=== PATIENT | female | born 1970 | race Caucasian/White ===

== ENCOUNTER 2016-12-30 04:58 | Emergency (ER) | payer BC, OTHER ==
[~2016-12-30] VITALS: Ht 160 cm; Wt 108.0 kg
[~2016-12-30 04:58] MED LIST: CITA10TA8 PO; LEVOIUD INT UTER
[2016-12-30 05:01] VITALS: TEMP 37; Ht 160 cm; Wt 108.0 kg
[2016-12-30] MEDS ORDERED: ONDANSETRON INJ 2 MG/ML 2 ML VIAL IV STA (05:15)
[2016-12-30] MEDS ORDERED: SODIUM CHLORIDE 0.9% 1000ML 1,000 ML IV ONE (05:15)
[2016-12-30] MEDS ORDERED: MoRPHine SULFATE 4 MG/ML 1 ML CARP\\VIAL IV ONE (05:15)
[2016-12-30 05:27] LABS: BASO % 0.1 %; BASO ABS # 0.02 K/uL (0-0.2); COMPLETE YES; EOS % 1.8 %; HEMATOCRIT 43.3 % (37-47); IG% 0.2 %; LYMPH % 35.6 %; LYMPH ABS # 4.84 K/uL (1.2-3.4); MEAN CELL VOLUME 89.8 fL (80-100); MEAN CORPUSCULAR HEMOGLOBIN 29.7 pg (25-34); MEAN PLATELET VOLUME 10.2 fL (7.4-10.4); MONO % 8.2 %; NEUT % 54.1 %; PLATELET COUNT 302 K/uL (130-400); RED BLOOD COUNT 4.82 M/uL (4.2-5.4)
[2016-12-30 05:43] LABS: BUN/CREATININE RATIO 21.1 (10-20); CREATININE 0.65 mg/dl (0.60-1.20); POTASSIUM 4.3 mmol/L (3.5-5.1)
[2016-12-30] MEDS ORDERED: METRONIDAZOLE 250 MG TAB PO STA (07:20)
[2016-12-30] MEDS ORDERED: CIPROFLOXACIN 500 MG TAB PO STA (07:20)
[2016-12-30] MEDS ORDERED: HYDR-5688 PO (07:25)
[2016-12-30] MEDS ORDERED: CIPR-255 PO (07:25)
[2016-12-30] MEDS ORDERED: METR-163 PO (07:25)
[2016-12-30] MEDS ORDERED: ONDA4TAB10 SL (07:25)
[2016-12-30 07:28] LABS: URINE APPEARANCE CLEAR (CLEAR); URINE BILIRUBIN NEG (NEG); URINE COLOR YELLOW; URINE EPITHELIAL CELL AUTO >30 /lpf (0-5); URINE NITRITE NEG (NEG); URINE SPECIFIC GRAVITY 1.024 (1.000-1.030); UROBILINOGEN NEG (NEG); ZZUR CULT IF INDIC CLEAN CATCH NO
[2016-12-30 07:29] LABS: REVIEW REQ? YES
[2016-12-30 07:30] LABS: MANUAL MICROSCOPIC REQUIRED? NO
--- NOTE | 2016-12-30 07:32 | DIAGNOSTIC IMAGING REPORT ---
ULTRASOUND OF THE PELVIS CLINICAL HISTORY: Left pelvic pain. COMPARISON STUDY: Abdominal CT dated 12/30/2016. TECHNIQUE: Real-time, grayscale, and color flow sonography of the pelvis is performed both transabdominally and endovaginally. Images are reviewed in the transverse and longitudinal planes. FINDINGS: Uterus: The uterus is normal in size and echotexture, measuring 9.7 x 5.1 x 7.6 cm. Endometrium: The endometrium appears thickened, measuring up to 1.4 cm. No abnormal vascularity is seen on color imaging. Ovaries: The ovaries are normal in size and morphology. The right ovary measures 3.2 x 1.9 x 2.5 cm and the left ovary measures 2.3 x 1.3 x 1.8 cm. There are bilateral ovarian follicles. Dominant follicle in the right measures up to 1.8 cm. A coarse calcification is seen adjacent to the left ovary. Normal Doppler waveforms are shown within both ovaries. Pelvis: There is a small volume of free fluid in the cul-de-sac. No concerning adnexal lesion is seen. IMPRESSION: 1. No acute sonographic abnormality is identified in the pelvis. 2. There is a small volume of free fluid in the cul-de-sac, likely within physiologic limits. 3. The endometrium appears mildly thickened measuring up to 1.4 cm. This is nonspecific and may be related to the patient's cycle. Clinical correlation will be required. Electronically signed by: Jose Lunsford M.D. 12/30/2016 7:30 AM Dictated Date/Time: 12/30/2016 7:28 AM
[2016-12-30 07:39] VITALS: BP 130/70; PULSE 65; O2SAT 95
--- NOTE | 2016-12-30 07:41 | DIAGNOSTIC IMAGING REPORT ---
CT SCAN OF THE ABDOMEN AND PELVIS WITHOUT IV CONTRAST CLINICAL HISTORY: Left pelvic pain. COMPARISON STUDY: Abdominal CT dated 06/27/2015. TECHNIQUE: CT scan of the abdomen and pelvis is performed from the lung bases to the proximal femora. Images are reviewed in the axial, sagittal, and coronal planes. IV contrast was not administered for this examination as per the referring clinician. Note that the examination was performed in suboptimal fashion without oral and IV contrast. The examination is also degraded by large body habitus, and by streak artifact from the body wall abutting the CT gantry. Automated dose control exposure was utilized. CT DOSE: 1965.68 mGy.cm FINDINGS: Lung bases: The heart is normal in size and without pericardial effusion. There is a trace left pleural effusion. The lung bases are otherwise clear noting dependent atelectasis. A tiny hiatal hernia is identified. Liver: The unenhanced liver is enlarged, measuring 22 cm in length. The liver demonstrates diffusely diminished attenuation consistent with hepatic steatosis. Fatty sparing is seen adjacent to the gallbladder fossa. There are several large hepatic cysts. The largest is in the right lobe and measures up to 8 cm. There is no intrahepatic biliary ductal dilatation. A tiny lipoma is suggested in the dome of liver adjacent to a coarse calcification on image #24. Gallbladder: There are numerous gallstones. There is no CT evidence of acute cholecystitis. Spleen: Normal in size and attenuation. Pancreas: Unremarkable. Adrenal glands: Unremarkable. Kidneys: The unenhanced kidneys are normal in size and without hydronephrosis. There are least 2 nonobstructing right renal calculi measuring up to 4 mm. There is a cluster of nonobstructing calculi in the lower pole of left kidney measuring up to 6 mm. There is no evidence of contour deforming renal mass lesion. Abdominal vasculature: The abdominal aorta is normal in course and caliber. Bowel: The small bowel and colon are normal in course and caliber. There is mild diverticulosis of left colon. There is a fat-containing lesion along the antimesenteric border of the distal descending/proximal sigmoid colon with surrounding inflammation. Although there are diverticula in this region, the appearance is more suggestive of epiploic appendagitis. No organized fluid collection is seen. The appendix is well-visualized and normal. Peritoneum: There is no intraperitoneal free air or abdominal ascites. Lymphadenopathy: None. Pelvic viscera: The bladder, uterus, and adnexa are normal as visualized. There is a small volume of free fluid in the cul-de-sac. Skeletal structures: No lytic or blastic lesions are seen. IMPRESSION: 1. Suboptimal examination without oral and IV contrast. 2. There is a fat-containing lesion along the antimesenteric border of the distal descending/proximal sigmoid colon with surrounding inflammation. Although there are colonic diverticula in this region, the appearance is more suggestive of epiploic appendagitis. Mild acute diverticulitis could have a similar appearance and clinical correlation will be required. 3. Bilateral nonobstructing renal calculi. 4. Hepatomegaly and hepatic steatosis. 5. There is a small volume of free fluid in the cul-de-sac, likely within physiologic limits. 6. Cholelithiasis. 7. Additional findings as above. Electronically signed by: Jose Lunsford M.D. 12/30/2016 7:40 AM Dictated Date/Time: 12/30/2016 7:31 AM
--- NOTE | 2016-12-30 23:20 | EMERGENCY ROOM VISIT NOTE ---
History First contact with patient: 05:08 Chief Complaint: ABDOMINAL PAIN Stated Complaint: PAIN LWR LEFT SIDE Nursing Triage Summary: c/o left lower abd pain since 1300 yesterday. denies N/V/d or urinary symptoms. hx kidney stones History of Present Illness The patient is a 46 year old female who presents to the Emergency Room with complaints of left lower quadrant abdominal pain worsening over the past one day. The patient does not have injury or trauma to this area. She is without nausea, vomiting, or diarrhea. No dysuria. She does have a history of kidney stones, however she states her discomfort is different from those episodes. She has been able to eat and drink without difficulty. No reported fever. She has not taken anything [id number] for her discomfort. Palpation in the area does worsen the pain. The pain does not radiate and is not migratory. She rates it an 8/10. Review of Systems More than 10 systems were reviewed and otherwise negative with the exception of history of present illness. Past Medical/Surgical History Medical Problems: (1) Kidney stone Family History No pertinent family history Social History Smoking Status: Never Smoker Alcohol Use: occasionally Drug Use: none Marital Status: Housing Status: lives with family Current/Historical Medications Scheduled Ciprofloxacin Hcl (Cipro), 500 MG PO BID Citalopram Hydrobromide (Celexa), 10 MG PO QAM Metronidazole (Flagyl), 500 MG PO TID Ondasetron Odt (Zofran Odt), 4 MG SL Q6H Scheduled PRN Hydrocodone/Acetaminophen 5MG/325MG (Pearblossom 5MG/325MG), 1 TABLET PO Q6 PRN for Pain Miscellaneous Medications Levonorgestrel (Iud) (Mirena), 1 UNIT INT UTER Allergies Coded Allergies: No Known Allergies (Verified , 12/30/16) Physical Exam Vital Signs Date Time Temp Pulse Resp B/P Pulse Ox O2 Delivery O2 Flow Rate FiO2 12/30/16 07:39 65 18 130/70 95 12/30/16 06:43 63 20 119/71 93 Room Air 12/30/16 05:01 37.0 75 18 138/81 92 Room Air Pain Rating (0-10): 4.0 Physical Exam VITALS: Vitals are noted on the nurse's note and reviewed by myself. Vital signs stable. GENERAL: Well-developed, well-nourished, white female, who is in no acute distress and resting comfortably. Patient is cooperative with the examination. HEAD: Normocephalic atraumatic. HEART: Regular rate and rhythm without murmurs gallops or rubs. LUNGS: Clear to auscultation bilaterally without wheezes, rales or rhonchi. No retractions or accessory muscle use. ABDOMEN: Positive normal bowel sounds x 4. Soft with positive left lower quadrant tenderness on palpation. No rebound or guarding. No right lower quadrant tenderness. No CVA tenderness. MUSCULOSKELETAL: No muscle atrophy, erythema, or edema noted. Full range of motion without joint tenderness in all extremities. Medical Decision & Procedures ER Provider Diagnostic Interpretation: ULTRASOUND OF THE PELVIS CLINICAL HISTORY: Left pelvic pain. COMPARISON STUDY: Abdominal CT dated 12/30/2016. TECHNIQUE: Real-time, grayscale, and color flow sonography of the pelvis is performed both transabdominally and endovaginally. Images are reviewed in the transverse and longitudinal planes. FINDINGS: Uterus: The uterus is normal in size and echotexture, measuring 9.7 x 5.1 x 7.6 cm. Endometrium: The endometrium appears thickened, measuring up to 1.4 cm. No abnormal vascularity is seen on color imaging. Ovaries: The ovaries are normal in size and morphology. The right ovary measures 3.2 x 1.9 x 2.5 cm and the left ovary measures 2.3 x 1.3 x 1.8 cm. There are bilateral ovarian follicles. Dominant follicle in the right measures up to 1.8 cm. A coarse calcification is seen adjacent to the left ovary. Normal Doppler waveforms are shown within both ovaries. Pelvis: There is a small volume of free fluid in the cul-de-sac. No concerning adnexal lesion is seen. IMPRESSION: 1. No acute sonographic abnormality is identified in the pelvis. 2. There is a small volume of free fluid in the cul-de-sac, likely within physiologic limits. 3. The endometrium appears mildly thickened measuring up to 1.4 cm. This is nonspecific and may be related to the patient's cycle. Clinical correlation will be required. CT SCAN OF THE ABDOMEN AND PELVIS WITHOUT IV CONTRAST CLINICAL HISTORY: Left pelvic pain. COMPARISON STUDY: Abdominal CT dated 06/27/2015. TECHNIQUE: CT scan of the abdomen and pelvis is performed from the lung bases to the proximal femora. Images are reviewed in the axial, sagittal, and coronal planes. IV contrast was not administered for this examination as per the referring clinician. Note that the examination was performed in suboptimal fashion without oral and IV contrast. The examination is also degraded by large body habitus, and by streak artifact from the body wall abutting the CT gantry. Automated dose control exposure was utilized. CT DOSE: 1965.68 mGy.cm FINDINGS: Lung bases: The heart is normal in size and without pericardial effusion. There is a trace left pleural effusion. The lung bases are otherwise clear noting dependent atelectasis. A tiny hiatal hernia is identified. Liver: The unenhanced liver is enlarged, measuring 22 cm in length. The liver demonstrates diffusely diminished attenuation consistent with hepatic steatosis. Fatty sparing is seen adjacent to the gallbladder fossa. There are several large hepatic cysts. The largest is in the right lobe and measures up to 8 cm. There is no intrahepatic biliary ductal dilatation. A tiny lipoma is suggested in the dome of liver adjacent to a coarse calcification on image #24. Gallbladder: There are numerous gallstones. There is no CT evidence of acute cholecystitis. Spleen: Normal in size and attenuation. Pancreas: Unremarkable. Adrenal glands: Unremarkable. Kidneys: The unenhanced kidneys are normal in size and without hydronephrosis. There are least 2 nonobstructing right renal calculi measuring up to 4 mm. There is a cluster of nonobstructing calculi in the lower pole of left kidney measuring up to 6 mm. There is no evidence of contour deforming renal mass lesion. Abdominal vasculature: The abdominal aorta is normal in course and caliber. Bowel: The small bowel and colon are normal in course and caliber. There is mild diverticulosis of left colon. There is a fat-containing lesion along the antimesenteric border of the distal descending/proximal sigmoid colon with surrounding inflammation. Although there are diverticula in this region, the appearance is more suggestive of epiploic appendagitis. No organized fluid collection is seen. The appendix is well-visualized and normal. Peritoneum: There is no intraperitoneal free air or abdominal ascites. Lymphadenopathy: None. Pelvic viscera: The bladder, uterus, and adnexa are normal as visualized. There is a small volume of free fluid in the cul-de-sac. Skeletal structures: No lytic or blastic lesions are seen. IMPRESSION: 1. Suboptimal examination without oral and IV contrast. 2. There is a fat-containing lesion along the antimesenteric border of the distal descending/proximal sigmoid colon with surrounding inflammation. Although there are colonic diverticula in this region, the appearance is more suggestive of epiploic appendagitis. Mild acute diverticulitis could have a similar appearance and clinical correlation will be required. 3. Bilateral nonobstructing renal calculi. 4. Hepatomegaly and hepatic steatosis. 5. There is a small volume of free fluid in the cul-de-sac, likely within physiologic limits. 6. Cholelithiasis. 7. Additional findings as above. ULTRASOUND OF THE PELVIS CLINICAL HISTORY: Left pelvic pain. COMPARISON STUDY: Abdominal CT dated 12/30/2016. TECHNIQUE: Real-time, grayscale, and color flow sonography of the pelvis is performed both transabdominally and endovaginally. Images are reviewed in the transverse and longitudinal planes. FINDINGS: Uterus: The uterus is normal in size and echotexture, measuring 9.7 x 5.1 x 7.6 cm. Endometrium: The endometrium appears thickened, measuring up to 1.4 cm. No abnormal vascularity is seen on color imaging. Ovaries: The ovaries are normal in size and morphology. The right ovary measures 3.2 x 1.9 x 2.5 cm and the left ovary measures 2.3 x 1.3 x 1.8 cm. There are bilateral ovarian follicles. Dominant follicle in the right measures up to 1.8 cm. A coarse calcification is seen adjacent to the left ovary. Normal Doppler waveforms are shown within both ovaries. Pelvis: There is a small volume of free fluid in the cul-de-sac. No concerning adnexal lesion is seen. IMPRESSION: 1. No acute sonographic abnormality is identified in the pelvis. 2. There is a small volume of free fluid in the cul-de-sac, likely within physiologic limits. 3. The endometrium appears mildly thickened measuring up to 1.4 cm. This is nonspecific and may be related to the patient's cycle. Clinical correlation will be required. Laboratory Results 12/30/16 05:16 Red Blood Count 4.82, Mean Corpuscular Volume 89.8, Mean Corpuscular Hemoglobin 29.7, Mean Corpuscular Hemoglobin Concent 33.0, Mean Platelet Volume 10.2, Neutrophils (%) (Auto) 54.1, Lymphocytes (%) (Auto) 35.6, Monocytes (%) (Auto) 8.2, Eosinophils (%) (Auto) 1.8, Basophils (%) (Auto) 0.1, Neutrophils # (Auto) 7.35, Lymphocytes # (Auto) 4.84, Monocytes # (Auto) 1.12, Eosinophils # (Auto) 0.24, Basophils # (Auto) 0.02 12/30/16 05:16 Test 12/30/16 05:16 12/30/16 06:30 White Blood Count 13.60 K/uL (4.8-10.8) Red Blood Count 4.82 M/uL (4.2-5.4) Hemoglobin 14.3 g/dL (12.0-16.0) Hematocrit 43.3 % (37-47) Mean Corpuscular Volume 89.8 fL (80-100) Mean Corpuscular Hemoglobin 29.7 pg (25-34) Mean Corpuscular Hemoglobin Concent 33.0 g/dl (32-36) Platelet Count 302 K/uL (130-400) Mean Platelet Volume 10.2 fL (7.4-10.4) Neutrophils (%) (Auto) 54.1 % Lymphocytes (%) (Auto) 35.6 % Monocytes (%) (Auto) 8.2 % Eosinophils (%) (Auto) 1.8 % Basophils (%) (Auto) 0.1 % Neutrophils # (Auto) 7.35 K/uL (1.4-6.5) Lymphocytes # (Auto) 4.84 K/uL (1.2-3.4) Monocytes # (Auto) 1.12 K/uL (0.11-0.59) Eosinophils # (Auto) 0.24 K/uL (0-0.5) Basophils # (Auto) 0.02 K/uL (0-0.2) RDW Standard Deviation 41.4 fL (36.4-46.3) RDW Coefficient of Variation 12.7 % (11.5-14.5) Immature Granulocyte % (Auto) 0.2 % Immature Granulocyte # (Auto) 0.03 K/uL (0.00-0.02) Anion Gap 4.0 mmol/L (3-11) Est Creatinine Clear Calc Drug Dose 124.7 ml/min Estimated GFR () 121.7 Estimated GFR (Non- 105.0 BUN/Creatinine Ratio 21.1 (10-20) Calcium Level 9.0 mg/dl (8.5-10.1) Total Bilirubin 0.3 mg/dl (0.2-1) Aspartate Amino Transf (AST/SGOT) 13 U/L (15-37) Alanine Aminotransferase (ALT/SGPT) 21 U/L (12-78) Alkaline Phosphatase 68 U/L (45-117) Total Protein 7.1 gm/dl (6.4-8.2) Albumin 3.5 gm/dl (3.4-5.0) Globulin 3.6 gm/dl (2.5-4.0) Albumin/Globulin Ratio 1.0 (0.9-2) Lipase 130 U/L (73-393) Urine Color YELLOW Urine Appearance CLEAR (CLEAR) Urine pH 5.0 (4.5-7.5) Urine Specific Badger 1.024 (1.000-1.030) Urine Protein NEG (NEG) Urine Glucose (UA) NEG (NEG) Urine Ketones NEG (NEG) Urine Occult Blood TRACE (NEG) Urine Nitrite NEG (NEG) Urine Bilirubin NEG (NEG) Urine Urobilinogen NEG (NEG) Urine Leukocyte Esterase NEG (NEG) Urine WBC (Auto) 1-5 /hpf (0-5) Urine RBC (Auto) 0-4 /hpf (0-4) Urine Hyaline Casts (Auto) 1-5 /lpf (0-5) Urine Epithelial Cells (Auto) >30 /lpf (0-5) Urine Bacteria (Auto) NEG (NEG) Urine Test NEG (NEG) Medications Administered Medications (Trade) Dose Ordered Sig/Ousmane Route Start Time Stop Time Status Last Admin Dose Admin Sodium Chloride (Nss 1000ml) 1,000 ml @ 999 mls/hr Q1H1M ONCE IV 12/30/16 05:15 12/30/16 06:15 DC 12/30/16 05:21 999 MLS/HR Morphine Sulfate (MoRPHine SULFATE INJ) 4 mg NOW ONCE IV 12/30/16 05:15 12/30/16 05:17 DC 12/30/16 05:22 4 MG Ondansetron HCl (Zofran Inj) 4 mg NOW STAT IV 12/30/16 05:15 12/30/16 05:17 DC 12/30/16 05:21 4 MG Ciprofloxacin (Cipro Tab) 500 mg NOW STAT PO 12/30/16 07:20 12/30/16 07:21 DC 12/30/16 07:28 500 MG Metronidazole (Flagyl Tab) 500 mg NOW STAT PO 12/30/16 07:20 12/30/16 07:21 DC 12/30/16 07:28 500 MG ED Course Physical exam and history were performed. Nursing notes and EMR were reviewed. Patient appears to have left lower quadrant abdominal pain for the past one day. On exam she is tender in this area. IV access was established and labs were obtained. The patient was hydrated and medicated as above. Ultrasound and CT scans were ordered. The patient's blood work is as above and was reviewed. The patient does have an elevated white blood cell count greater than 13,000. She does not have a significant anemia or gross electrolyte imbalance. Urinalysis without obvious signs of infection with culture pending. Ultrasound did not show acute [employer] etiology of the patient's symptoms. CT scan without contrast did not show evidence of stone but was suggestive of diverticulitis. Clinically this would correlate with patient's discomfort. Overall the patient appears stable for discharge home. She was treated with Cipro and Flagyl here in the department. She'll be given a continuation prescriptions of these medications. I will also give her a course of Zofran. I recommended that she follow with her PCP in the next 2 or 3 days for recheck. The patient was provided the ER with any new, worsening, or concerning symptoms. She voiced understanding of this plan and rated her discomfort a 2/ 10 at the time of her departure. The chart was completed utilizing [employer] Speech Voice Recognition Software. Grammatical errors, random word insertions, pronoun errors, and incomplete sentences are an occasional consequence of this system due to software limitations, ambient noise, and hardware issues. Any formal questions or concerns about the content, text, or information contained within the body of this dictation should be directly addressed to the provider for clarification. . Medical Decision Differential diagnosis: Etiologies such as appendicitis, diverticulitis, PUD, biliary pathology, UTI, pancreatitis, obstruction, mesenteric ischemia, aortic pathology, infections, inflammatory bowel disease, renal colic, as well as others were entertained. Impression Primary Impression: Acute diverticulitis Departure Information Dispostion Home / Self-Care Condition GOOD Prescriptions Ondasetron Odt (ZOFRAN ODT) 4 Mg Tab 4 MG SL Q6H for Nausea, #12 TAB Prov: Sy Garcia PA-C 12/30/16 Hydrocodone/Acetaminophen 5MG/325MG (Pearblossom 5MG/325MG) Tab 1 TABLET PO Q6 Y for Pain, #12 TAB For Initial Treatment Prov: Sy Garcia PA-C 12/30/16 Metronidazole (Flagyl) 500 Mg Tab 500 MG PO TID for 10 Days, #30 TAB Prov: Sy Garcia PA-C 12/30/16 Ciprofloxacin Hcl (CIPRO) 500 Mg Tab 500 MG PO BID for 10 Days, #20 TAB Prov: Sy Garcia PA-C 12/30/16 Forms Call Back Authorization, HOME CARE DOCUMENTATION FORM, Work Instructions, Additional Instructions: Patient was seen and evaluated in the emergency department for medica care. May return to work on 01/01/2017. Please excuse. IMPORTANT VISIT INFORMATION Patient Instructions [facility] Additional Instructions You were seen and evaluated today on an emergency basis only. This is not a substitute for, or an effort to provide, complete comprehensive medical care. It is not possible to recognize and treat all injuries or illnesses in a single emergency department visit. For this reason it is recommended that you followup with your primary care physician this week for ongoing care and evaluation. For baseline pain relief you may alternate ibuprofen and acetaminophen every 4 hours for pain control. Take 600 mg ibuprofen (Advil) and then 4 hours later take 1000 mg acetaminophen (Tylenol). Do not take more than 3000 mg acetaminophen in a single day. Pearblossom (hydrocodone/acetaminophen) 5/325 mg every 6 hours as needed for worsening breakthrough pain. Do not drink or drive on Pearblossom. This medication will likely make you tired. Do not take Pearblossom and Tylenol at the same time as both contain acetaminophen. Pearblossom may cause constipation. You may wish to take an tsoo-nov-uhrltye stool softener like Colace if this occurs. Ciprofloxacin(Cipro) 500mg: Take one pill twice daily for 10 days for your infection. All antibiotics can cause diarrhea. If this occurs and you feel worse or it does not resolve in 1-2 days follow up with your doctor or return to the Emergency Department as this could be signs of serious underlying problems. If you experience any pain in your tendons or any tendon injury return to the ER for re-evaluation. Any medication can cause an allergic reaction, stop the pills immediately and return to the ER for rash, hives, breathing difficulties, or swelling. Metronidazole(Flagyl) 500mg: Take one pill three times daily for 10 days for your infection. DO NOT drink alcohol or take alcohol containing products with this medication. Any medication can cause an allergic reaction, stop the pills immediately and return to the ER for rash, hives, breathing difficulties, or swelling. Zofran 1 tablet every 6 hrs as needed for nausea. You are welcome to return to the emergency department anytime with new, worsening, or concerning symptoms. Work Instructions Additional Work Instructions: Patient was seen and evaluated in the emergency department for medical care. May return to work on 01/01/2017. Please excuse.
[2017-05-12] MEDS ORDERED: OXYC1TAB3 PO (13:33)
[2017-05-12] MEDS ORDERED: TAMS0.4C38 PO (13:33)
[2017-05-12] MEDS ORDERED: ACET-1256 PO (13:34)
== END 2016-12-30 07:40 | disposition home or self-care (01) ==
LOC: C.EDB 04:58
DX: K57.92 Diverticulitis of intestine, part unspecified, without perforation or abscess without bleeding (principal)

== ENCOUNTER 2017-05-02 12:03 | Emergency (ER) | payer BC ==
[~2017-05-02] VITALS: Ht 160 cm; Wt 120.4 kg
[~2017-05-02 12:03] MED LIST changes: +CIPR-255 PO; +HYDR-5688 PO; +ONDA4TAB10 SL
[2017-05-02 12:10] VITALS: TEMP 36.8; Ht 160 cm; Wt 120.4 kg
[2017-05-02] MEDS ORDERED: ONDANSETRON INJ 2 MG/ML 2 ML VIAL IV STA (12:22)
[2017-05-02] MEDS ORDERED: SODIUM CHLORIDE 0.9% 1000ML 1,000 ML IV STA ×2 (12:22→12:55)
[2017-05-02] MEDS ORDERED: MoRPHine SULFATE 10 MG/ML CARP/VIAL IV STA (12:22)
[2017-05-02 12:46] LABS: BASO % 0.2 %; BASO ABS # 0.03 K/uL (0-0.2); COMPLETE YES; EOS % 0.5 %; HEMATOCRIT 45.5 % (37-47); IG% 0.3 %; LYMPH % 16.7 %; LYMPH ABS # 2.47 K/uL (1.2-3.4); MEAN CELL VOLUME 91.9 fL (80-100); MEAN CORPUSCULAR HEMOGLOBIN 30.7 pg (25-34); MEAN CORPUSCULAR HGB CONC 33.4 g/dl (32-36); MEAN PLATELET VOLUME 10.4 fL (7.4-10.4); NEUT % 77.3 %; PLATELET COUNT 300 K/uL (130-400); RED BLOOD COUNT 4.95 M/uL (4.2-5.4); WHITE BLOOD COUNT 14.78 K/uL (4.8-10.8)
[2017-05-02 13:05] LABS: ALT/SGPT 34 U/L (12-78); AST/SGOT 23 U/L (15-37); BLOOD UREA NITROGEN 11 mg/dl (7-18); BUN/CREATININE RATIO 15.8 (10-20); CALCIUM 9.1 mg/dl (8.5-10.1); CARBON DIOXIDE 25 mmol/L (21-32); CHLORIDE 108 mmol/L (98-107); CREATININE 0.71 mg/dl (0.60-1.20); GLUCOSE 134 mg/dl (70-99); POTASSIUM 4.2 mmol/L (3.5-5.1); SODIUM 141 mmol/L (136-145)
[2017-05-02 13:08] LABS: URINE APPEARANCE CLOUDY (CLEAR); URINE BILIRUBIN NEG (NEG); URINE COLOR DK YELLOW; URINE EPITHELIAL CELL AUTO >30 /lpf (0-5); URINE NITRITE NEG (NEG); URINE SPECIFIC GRAVITY 1.027 (1.000-1.030); UROBILINOGEN NEG (NEG); ZZUR CULT IF INDIC CLEAN CATCH YES
[2017-05-02 13:08] LABS: ALKALINE PHOSPHATASE 73 U/L (45-117)
[2017-05-02 13:11] LABS: MANUAL MICROSCOPIC REQUIRED? NO; REVIEW REQ? NO
--- NOTE | 2017-05-02 13:28 | DIAGNOSTIC IMAGING REPORT ---
CT SCAN OF THE ABDOMEN AND PELVIS WITHOUT CONTRAST CLINICAL HISTORY: Left flank pain and hematuria COMPARISON STUDY: 12/28/2016 TECHNIQUE: CT scan of the abdomen and pelvis was performed from the lung bases to the proximal femurs. Images are reviewed in the axial, sagittal, and coronal planes. IV contrast was not administered for this examination. A dose lowering technique was utilized adhering to the principles of ALARA. CT DOSE: 1439.95 mGy.cm FINDINGS: Lower chest: There are by basilar atelectatic changes present. Liver: There is a stable right lobe hepatic calcification. There are multiple hypodense hepatic lesions similar to the prior study. Multiple cysts are suspected. Gallbladder: Cholelithiasis Spleen: Normal in size and attenuation. Pancreas: Unremarkable. Adrenal glands: Unremarkable. Kidneys: There is a nonobstructing 4 mm right renal calculus. There are multiple lower pole left renal calculi measuring up to 2 mm in size. There is a 6 mm calculus at the left ureteropelvic junction with mild secondary obstructive changes. Bowel: There are no transition zones indicate bowel obstruction. The appendix appears normal. There is colonic diverticulosis. There is no acute diverticulitis. Peritoneum: There is no intraperitoneal free air or abdominal ascites. Vasculature: The abdominal aorta is normal in course and caliber. Adenopathy: None. Pelvic viscera: The bladder, and pelvic viscera are unremarkable. Skeletal structures: No destructive osseous lesions are seen. IMPRESSION: 1. Bilateral nephrolithiasis 2. 6 mm proximal left ureteral calculus at the ureteropelvic junction with mild secondary obstructive changes 3. No evidence of bowel obstruction. No evidence of free air 4. Diverticulosis. No evidence of acute diverticulitis 5. Normal appendix 6. Cholelithiasis 7. Multiple hypodense hepatic masses likely representing cysts Electronically signed by: Braden Plascencia M.D. 05/02/2017 1:27 PM Dictated Date/Time: 05/02/2017 1:22 PM
[2017-05-02 14:43] LABS: URINE APPEARANCE CLEAR (CLEAR); URINE BILIRUBIN NEG (NEG); URINE COLOR YELLOW; URINE EPITHELIAL CELL AUTO >30 /lpf (0-5); URINE NITRITE NEG (NEG); URINE SPECIFIC GRAVITY 1.024 (1.000-1.030); UROBILINOGEN NEG (NEG)
[2017-05-02 14:49] LABS: MANUAL MICROSCOPIC REQUIRED? NO; REVIEW REQ? NO
[2017-05-02] MEDS ORDERED: MoRPHine SULFATE 4 MG/ML 1 ML CARP\\VIAL IV STA (15:10)
[2017-05-02] MEDS ORDERED: TAMS0.4C38 PO (15:15)
[2017-05-02] MEDS ORDERED: OXYC1TAB3 PO (15:15)
[2017-05-02 16:02] VITALS: BP 127/71; PULSE 67; O2SAT 93
--- NOTE | 2017-05-02 18:17 | EMERGENCY ROOM VISIT NOTE ---
History Report prepared by Christiano: Gordy Grimm Under the Supervision of: Dr. Cullen Rice D.O. First contact with patient: 12:11 Chief Complaint: ABDOMINAL PAIN Stated Complaint: ABD/BACK PAIN History of Present Illness The patient is a 47 year old female who presents to the Emergency Room with complaints of constant left sided abdominal pain beginning shortly prior to arrival. She also complains of bilateral back pain, an episode of diarrhea, nausea, and dry heaving. She has a history of diverticulitis and kidney stones. She notes the pain is sharp in nature. The patient states that her pain began immediately after urinating. Nothing worsens her pain. Nothing improves her pain. The patient states that her pain in her back and abdomen began suddenly at the same time. She states that her current pain feels like early kidney stones. She denies any recent straining or trauma. Pt denies change in vision, fevers, chest pain, shortness of breath, rashes, urination, and melena. She notes that she was recently kayaking at [facility] last weekend. She notes that she has had headaches for the past several days and was seen by a chiropractor recently, but currently denies any headache. Source of History: patient Onset: Shortly prior to arrival Position: abdomen (left side) Timing: constant Associated Symptoms: + nausea, + back pain (bilateral), + diarrhea (an episode), No fevers, No headache, No chest pain, No SOB, No urinary symptoms Note: The patient also complains of dry heaving. Review of Systems See HPI for pertinent positives & negatives. A total of 10 systems reviewed and were otherwise negative. Past Medical & Surgical Medical Problems: (1) Kidney stone Family History No pertinent family history stated. Social History Smoking Status: Never Smoker Alcohol Use: occasionally Drug Use: none Marital Status: Housing Status: lives with family Current/Historical Medications Scheduled Citalopram Hydrobromide (Celexa), 10 MG PO QAM Tamsulosin Hcl (Flomax), 0.4 MG PO DAILY Scheduled PRN Hydrocodone/Acetaminophen 5MG/325MG (Bartley 5MG/325MG), 1 TABLET PO Q6 PRN for Pain Oxycodone Ir (Roxicodone Ir), 1 TAB PO Q6H PRN for Severe Pain Allergies Coded Allergies: No Known Allergies (Verified , 05/02/17) Physical Exam Vital Signs Date Time Temp Pulse Resp B/P (MAP) Pulse Ox O2 Delivery O2 Flow Rate FiO2 05/02/17 16:02 67 18 127/71 93 05/02/17 14:00 60 18 111/66 99 Room Air 05/02/17 12:10 36.8 74 18 127/74 94 Room Air Physical Exam GENERAL: Morbidly obese, sitting up in bed, holding lower abdomen. EYE EXAM: normal conjunctiva OROPHARYNX: no exudate, no erythema, lips, buccal mucosa, and tongue normal and mucous membranes are moist NECK: supple, no nuchal rigidity, no adenopathy, non-tender LUNGS: Clear to auscultation. Normal chest wall mechanics HEART: no murmurs, S1 normal and S2 normal ABDOMEN: abdomen soft, normo-active bowel sounds, no masses, no rebound or guarding. Faint tenderness in the LLQ. BACK: Back is symmetrical on inspection and there is no deformity, no midline tenderness, no CVA tenderness. SKIN: no rashes and no bruising UPPER EXTREMITIES: upper extremities are grossly normal. LOWER EXTREMITIES: No pitting edema. NEURO EXAM: Normal sensorium, cranial nerves II-XII grossly intact, normal speech, no gross weakness of arms, no gross weakness of legs. Medical Decision & Procedures ER Provider Diagnostic Interpretation: CT:Per my review, radiologist interpretation. CT SCAN OF THE ABDOMEN AND PELVIS WITHOUT CONTRAST FINDINGS: Lower chest: There are by basilar atelectatic changes present. Liver: There is a stable right lobe hepatic calcification. There are multiple hypodense hepatic lesions similar to the prior study. Multiple cysts are suspected. Gallbladder: Cholelithiasis Spleen: Normal in size and attenuation. Pancreas: Unremarkable. Adrenal glands: Unremarkable. Kidneys: There is a nonobstructing 4 mm right renal calculus. There are multiple lower pole left renal calculi measuring up to 2 mm in size. There is a 6 mm calculus at the left ureteropelvic junction with mild secondary obstructive changes. Bowel: There are no transition zones indicate bowel obstruction. The appendix appears normal. There is colonic diverticulosis. There is no acute diverticulitis. Peritoneum: There is no intraperitoneal free air or abdominal ascites. Vasculature: The abdominal aorta is normal in course and caliber. Adenopathy: None. Pelvic viscera: The bladder, and pelvic viscera are unremarkable. Skeletal structures: No destructive osseous lesions are seen. IMPRESSION: 1. Bilateral nephrolithiasis 2. 6 mm proximal left ureteral calculus at the ureteropelvic junction with mild secondary obstructive changes 3. No evidence of bowel obstruction. No evidence of free air 4. Diverticulosis. No evidence of acute diverticulitis 5. Normal appendix 6. Cholelithiasis 7. Multiple hypodense hepatic masses likely representing cysts Electronically signed by: Braden Plascencia M.D. Laboratory Results 05/02/17 12:30 Red Blood Count 4.95, Mean Corpuscular Volume 91.9, Mean Corpuscular Hemoglobin 30.7, Mean Corpuscular Hemoglobin Concent 33.4, Mean Platelet Volume 10.4, Neutrophils (%) (Auto) 77.3, Lymphocytes (%) (Auto) 16.7, Monocytes (%) (Auto) 5.0, Eosinophils (%) (Auto) 0.5, Basophils (%) (Auto) 0.2, Neutrophils # (Auto) 11.43, Lymphocytes # (Auto) 2.47, Monocytes # (Auto) 0.74, Eosinophils # (Auto) 0.07, Basophils # (Auto) 0.03 05/02/17 12:30 Test 05/02/17 12:30 05/02/17 12:40 05/02/17 14:10 White Blood Count 14.78 K/uL (4.8-10.8) Red Blood Count 4.95 M/uL (4.2-5.4) Hemoglobin 15.2 g/dL (12.0-16.0) Hematocrit 45.5 % (37-47) Mean Corpuscular Volume 91.9 fL (80-100) Mean Corpuscular Hemoglobin 30.7 pg (25-34) Mean Corpuscular Hemoglobin Concent 33.4 g/dl (32-36) Platelet Count 300 K/uL (130-400) Mean Platelet Volume 10.4 fL (7.4-10.4) Neutrophils (%) (Auto) 77.3 % Lymphocytes (%) (Auto) 16.7 % Monocytes (%) (Auto) 5.0 % Eosinophils (%) (Auto) 0.5 % Basophils (%) (Auto) 0.2 % Neutrophils # (Auto) 11.43 K/uL (1.4-6.5) Lymphocytes # (Auto) 2.47 K/uL (1.2-3.4) Monocytes # (Auto) 0.74 K/uL (0.11-0.59) Eosinophils # (Auto) 0.07 K/uL (0-0.5) Basophils # (Auto) 0.03 K/uL (0-0.2) RDW Standard Deviation 43.0 fL (36.4-46.3) RDW Coefficient of Variation 12.9 % (11.5-14.5) Immature Granulocyte % (Auto) 0.3 % Immature Granulocyte # (Auto) 0.04 K/uL (0.00-0.02) Anion Gap 8.0 mmol/L (3-11) Est Creatinine Clear Calc Drug Dose 120.4 ml/min Estimated GFR () 115.9 Estimated GFR (Non- 100.0 BUN/Creatinine Ratio 15.8 (10-20) Calcium Level 9.1 mg/dl (8.5-10.1) Total Bilirubin 0.3 mg/dl (0.2-1) Direct Bilirubin < 0.1 mg/dl (0-0.2) Aspartate Amino Transf (AST/SGOT) 23 U/L (15-37) Alanine Aminotransferase (ALT/SGPT) 34 U/L (12-78) Alkaline Phosphatase 73 U/L (45-117) Total Protein 7.4 gm/dl (6.4-8.2) Albumin 3.7 gm/dl (3.4-5.0) Lipase 119 U/L (73-393) Urine Test NEG (NEG) Urine Color YELLOW Urine Appearance CLEAR (CLEAR) Urine pH 6.0 (4.5-7.5) Urine Specific [place] 1.024 (1.000-1.030) Urine Protein TRACE (NEG) Urine Glucose (UA) NEG (NEG) Urine Ketones NEG (NEG) Urine Occult Blood 3+ (NEG) Urine Nitrite NEG (NEG) Urine Bilirubin NEG (NEG) Urine Urobilinogen NEG (NEG) Urine Leukocyte Esterase NEG (NEG) Urine WBC (Auto) 1-5 /hpf (0-5) Urine RBC (Auto) >30 /hpf (0-4) Urine Hyaline Casts (Auto) 1-5 /lpf (0-5) Urine Epithelial Cells (Auto) >30 /lpf (0-5) Urine Bacteria (Auto) NEG (NEG) Laboratory results per my review. Medications Administered Medications (Trade) Dose Ordered Sig/Ousmane Route Start Time Stop Time Status Last Admin Dose Admin Sodium Chloride 1,000 ml @ 999 mls/hr Q1H1M STAT IV 05/02/17 12:22 05/02/17 13:22 DC 05/02/17 13:04 999 MLS/HR Ondansetron HCl (Zofran Inj) 4 mg NOW STAT IV 05/02/17 12:22 05/02/17 12:24 DC 05/02/17 13:03 4 MG Morphine Sulfate (MoRPHine SULFATE INJ) 6 mg NOW STAT IV 05/02/17 12:22 05/02/17 12:24 DC 05/02/17 13:04 6 MG Sodium Chloride 1,000 ml @ 999 mls/hr Q1H1M STAT IV 05/02/17 12:55 05/02/17 13:55 DC 05/02/17 14:02 999 MLS/HR Morphine Sulfate (MoRPHine SULFATE INJ) 4 mg NOW STAT IV 05/02/17 15:10 05/02/17 15:11 DC 05/02/17 15:24 4 MG ED Course ED COURSE: Vital signs were reviewed and showed hypertension. The patients medical record was reviewed The above diagnostic studies were performed and reviewed. ED treatments and interventions as stated above. 1215: The patient was evaluated in room A9B. A complete history and physical examination was performed. 1222: Ordered Morphine Sulfate 6 mg IV, Zofran Inj 4 mg IV, Sodium Chloride 1000 ml @ 999 mls/hr IV. 1230: The patient's urine dip was positive for blood. 1402: I reassessed the patient. She is resting comfortably. 1255: Ordered Sodium Chloride 1000 ml @ 999 mls/hr IV. 1510: Ordered Morphine Sulfate 4 mg IV. Upon reevaluation, the patient is feeling better. I discussed my findings with the patient and she understands and agrees with the treatment plan. Based on the patients age, coexisting illnesses, exam and lab findings the decision to treat as an outpatient was made. The patient remained stable while under my care. The patient appeared well at the time of discharge. Medical Decision Differential diagnoses includes but is not limited to gastritis, peptic ulcer disease, GERD, gallbladder disease, pancreatitis, small bowel obstruction, acute coronary syndrome, pericarditis, ischemic bowel, irritable bowel disease, irritable bowel syndrome, appendicitis, diverticulitis, malignancy, hernia, urinary tract infection, torsion, /ectopic , perforation, trauma, infectious. Patient is a 47-year-old female who presents the ER for left lower quadrant abdominal pain associated with mild diffuse back pain. On exam there is minimal tenderness. UA shows blood in the urine. CT of the abdomen and pelvis shows a 6 mm proximal left ureter stone. She has seen urology from [facility] before. Labs show a leukocytosis of 14,000. BMP along with LFTs and bilirubin was unremarkable. Initial UA was contaminated. Repeat shows no signs of infection. was negative. Pain was controlled with 2 doses of IV morphine. She was updated at bedside and discharged follow-up with urology. Any fever she was given strict instructions to return immediately to the closest ER. Discussed with Pt concerning signs and symptoms to watch out for. Pt was instructed to follow up with their PCP and discussed with the patient their option to return to the ED at anytime for persistent or worsening symptoms. The appropriate anticipatory guidance and out-patient management, including indications for return to the emergency department, were explained at length to the patient and understood. [place] Drug Monitoring Program Search Results: patient reviewed within database, no issues identified Medication Reconcilliation Current Medication List: was personally reviewed by me Blood Pressure Screening Patient's blood pressure: Elevated blood pressure Blood pressure disposition: Elevated BP felt to be situational Impression Primary Impression: Renal colic on left side Scribe Attestation The scribe's documentation has been prepared under my direction and personally reviewed by me in its entirety. I confirm that the note above accurately reflects all work, treatment, procedures, and medical decision making performed by me. Departure Information Dispostion Home / Self-Care Prescriptions Oxycodone Ir (Roxicodone Ir) 5 Mg Tab 1 TAB PO Q6H Y for Severe Pain, #20 TAB Prov: Cullen Rice, DO 05/02/17 Tamsulosin Hcl (FLOMAX) 0.4 Mg Cap 0.4 MG PO DAILY, #10 CAP Prov: Cullen Rice, DO 05/02/17 Referrals Paul Esteves M.D. (PCP) Forms Call Back Authorization, HOME CARE DOCUMENTATION FORM, IMPORTANT VISIT INFORMATION Patient Instructions Kidney Stones Eval, Kidney Stones Expectant Therapy, My [facility] Additional Instructions Please follow up with your primary care doctor or if you are a student, [facility] with in the next 24 hours. Any worsening of your symptoms, please return to the ED immediately. This includes any fevers greater than 100.4, worsening pain, chest pain, shortness breath, persistent nausea, vomiting, unable to eat or drink, or any other concerning signs or symptoms from your standpoint. You were given medications during this visit that will inhibit your ability to drive, operate machinery and work. Please do NOT drive, operate machinery or work for the next 12hrs. You were also given a prescription for a narcotic/Oxy IR. While taking this medication you should also not drive, operate machinery and or work. You were found to have a blood pressure greater than 120 systolic over 90 diastolic. Due to the new Medicare guidelines, we are now recommending that you follow up with your primary care doctor in regards to this elevated blood pressure. Please call urology on Wednesday morning at 8 AM to schedule appointment as you have a 6 mm proximal left ureteral stone
[2017-05-12] MEDS ORDERED: OXYC1TAB3 PO (13:33)
[2017-05-12] MEDS ORDERED: TAMS0.4C38 PO (13:33)
[2017-05-12] MEDS ORDERED: ACET-1256 PO (13:34)
== END 2017-05-02 16:00 | disposition home or self-care (01) ==
LOC: C.EDB 12:04 → C.EDA 16:00
DX: N23 Unspecified renal colic (principal); E66.01 Morbid (severe) obesity due to excess calories; Z87.442 Personal history of urinary calculi

== ENCOUNTER → 2017-05-07 | Outpatient (CLI) | payer BC ==
[~2017-05-07] MED LIST changes: +ACET-1256 PO; -CIPR-255 PO; -LEVOIUD INT UTER; -ONDA4TAB10 SL; +OXYC1TAB3 PO; +TAMS0.4C38 PO
--- NOTE | 2017-05-07 13:49 | DIAGNOSTIC IMAGING REPORT ---
CHEST 2 VIEWS ROUTINE CLINICAL HISTORY: Nephrolithiasis. COMPARISON STUDY: Chest radiograph June 28, 2015. FINDINGS: Lung volumes are normal. The lungs are clear. No pneumothorax or pleural effusion is present. There is no evidence of pulmonary edema. Cardiomediastinal silhouette is normal. IMPRESSION: No acute cardiopulmonary findings. Electronically signed by: Chan Gustafson M.D. 05/07/2017 1:47 PM Dictated Date/Time: 05/07/2017 1:47 PM
--- NOTE | 2017-05-07 13:54 | DIAGNOSTIC IMAGING REPORT ---
KUB CLINICAL HISTORY: Left-sided nephrolithiasis. COMPARISON STUDY: CT of the abdomen and pelvis May 02, 2017. FINDINGS: The 8 mm irregular proximal left ureteral calculus is similar in position to CT of May 02, 2017. A 5 mm right renal calculus is noted. No additional ureteral calculi are identified. Pelvic calcifications reflect phleboliths. A right lower quadrant calcification likely reflects an enterolith as shown on CT. IMPRESSION: 1. No significant change in position of an 8 mm proximal left ureteral calculus. 2. 5 mm right renal calculus. Electronically signed by: Chan Gustafson M.D. 05/07/2017 1:53 PM Dictated Date/Time: 05/07/2017 1:47 PM
== END | disposition home or self-care (01) ==
LOC: C.CPL 13:17
PROVIDERS: ATTEND Urology
DX: N20.2 Calculus of kidney with calculus of ureter (principal)

== ENCOUNTER → 2017-05-14 | Day surgery (SDC) | payer BC ==
[2017-05-12 13:34] VITALS: Ht 160 cm; Wt 120.7 kg
--- NOTE | 2017-05-12 13:53 | PAT Medication Instructions ---
Service Date May 12, 2017. Current Home Medication List Acetaminophen (Tylenol), 1,000 MG PO PRN Citalopram Hydrobromide (Celexa), 10 MG PO QAM Oxycodone Ir (Roxicodone Ir), 5 MG PO Q6H PRN for Pain Tamsulosin Hcl (Flomax), 0.4 MG PO QAM Medication Instructions For Your Scheduled Surgery - Hold the following medications the morning: Tamsulosin Hcl (Flomax), 0.4 MG PO QAM - Take the following medications the morning of surgery with a sip of water: Acetaminophen (Tylenol), 1,000 MG PO PRN (if needed) Citalopram Hydrobromide (Celexa), 10 MG PO QAM Oxycodone Ir (Roxicodone Ir), 5 MG PO Q6H PRN for Pain (okay to take up to 4 hours prior to surgery if needed) - Take the following medications as scheduled the night before surgery: Acetaminophen (Tylenol), 1,000 MG PO PRN (if needed) Oxycodone Ir (Roxicodone Ir), 5 MG PO Q6H PRN for Pain (if needed) If you have any questions please call us at [phone] or [phone] or [phone]
--- NOTE | 2017-05-13 16:58 | DIAGNOSTIC IMAGING REPORT ---
KUB CLINICAL HISTORY: STONE nephrocalcinosis COMPARISON STUDY: 04/29/2017 FINDINGS: The 7 mm calcification medial aspect left kidney in the prior study now appears to be within the mid left ureter medially superior to the left transverse process of L5. Bowel pattern is nonobstructive. Small calcification peripheral aspect mid right kidney unchanged. IMPRESSION: 7 mm calculus now presents on the left immediately superior to the left transverse process of L5. The above report was generated using voice recognition software. It may contain grammatical, syntax or spelling errors. Electronically signed by: Vincent De Los Santos M.D. 05/13/2017 4:57 PM Dictated Date/Time: 05/13/2017 4:56 PM
[~2017-05-14] VITALS: Ht 160 cm; Wt 120.7 kg
[~2017-05-14] MED LIST changes: +ATROPINE SULFATE 0.1 MG/ML 5ML SYR IV PRN; +CIPROFLOXACIN / D5W 400 MG IV SCH; +DEXAMETHASONE SOD INJ 4 MG/ML VIAL ONE; +EpHEDrine SULFATE INJ 50 MG/ML AMP IV PRN; +FENTANYL CITRATE INJ 50 MCG/1 ML 2 ML VIAL IV PRN; +FENTANYL CITRATE INJ 50 MCG/1 ML 2 ML VIAL ONE; +FLUMAZENIL 0.1 MG/1 ML 10 ML VIAL IV PRN; +GLYCOPYRROLATE INJ 0.2 MG/ML VIAL ONE; -HYDR-5688 PO; +HYDROmorphone INJ 2 MG/ML SYR/VIAL IV PRN; +LABETALOL HCL IV 5 MG/ML 20ML IV PRN; +LACTATED RINGER'S 1000ML 1,000 ML IV SCH; +LIDOCAINE HCL 2% 2 ML VIAL (20MG/ML) ONE; +MEPERIDINE HCL 25 MG/ML CARP IV PRN; +MIDAZOLAM HCL 1 MG/ML 2ML VIAL ONE; +NALOXONE HCL 0.4 MG/1 ML VIAL/CARP IV PRN; +NEOSTIGMINE METHYLSULFATE 5 MG/5 ML SYR ONE; +ONDANSETRON INJ 2 MG/ML 2 ML VIAL IV PRN; +ONDANSETRON INJ 2 MG/ML 2 ML VIAL ONE; +OXYCODONE/ACETAMINOPHEN 5-325 TAB PO PRN; +PHENYLEPHRINE 100MCG/ML 5ML SYR IV PRN; +PROPOFOL IV EMULSION 10 MG/ML 20 ML VIAL IV ONE; +ROCURONIUM BROMIDE 10 MG/ML 5 ML VIAL ONE; +SCOPOLAMINE 1.5 MG TDSY TD ONE
--- NOTE | 2017-05-14 07:05 | History & Physical Bridge Note ---
H&P Re-Evaluation Bridge Note: I have examined the patient, reviewed the History & Physical and in the interval since the performance of the History & Physical I have noted the following changes of clinical significance: No changes noted
--- NOTE | 2017-05-14 08:17 | [facility] Operative Report ---
Operative Report Operative Date May 14, 2017. Pre-Operative Diagnosis Left Ureteral Stone Post-Operative Diagnosis Same as pre-op Procedure(s) Performed Left Ureteral Extracorporeal Shock Wave Lithotripsy Surgeon Dr. Yony Chino Load Out Supervisor Surgeon(s) None Estimated Blood Loss Zero Findings Good fragmentation on fluoroscopy Specimens None Drains NA Anesthesia GALMA Complication(s) None Disposition Recovery Room / PACU Indications 47 yo female with left ureteral stone for ESWL. Description of Procedure The patient was brought to the litho suite. He was correctly identified and the stone was visualized on his most recent x-rays. After the correct time out was performed the patient was positioned over the therapy head. An adequate level of anesthesia was administered. The extracorporeal shockwave lithotripsy treatment was then commenced. Please see the [place] Kidney Stone Management sheet for complete treatment summary. After completion of the procedure the patient was taken to the recovery room in stable condition. I attest to the content of the Intraoperative Record and any orders documented therein. Any exceptions are noted below.
--- NOTE | 2017-05-14 08:18 | Discharge Instructions ---
Discharge Instructions Date of Service May 14, 2017. Admission Reason for Admission: STONE Discharge Discharge Diagnosis / Problem: L ureteral stone s/p ESWL Discharge Goals Goal(s): Decrease discomfort, Improve disease control, Therapeutic intervention Activity Recommendations Activity Limitations: as noted below Lifting Limitations: no more than 25 pounds, gradually increase as tolerated ( over 3 days) Exercise/Sports Limitations: rest today, gradually increase as tolerated (over 3 days) May Resume Sexual Activity: when tolerated Shower/Bathe: no limitations Driving or Machine Use: resume 1 day after discharge . Instructions / Follow-Up Instructions / Follow-Up Strain urine as instructed Follow-up in office as scheduled with KUB Xray before visit Discharge Diet Recommended Diet: Regular Diet (good fluid intake) Procedures Procedures Performed: Left Ureteral Extracorporeal Shock Wave Lithotripsy Pending Studies Studies pending at discharge: no Medical Emergencies . Who to Call and When: Medical Emergencies: If at any time you feel your situation is an emergency, please call 911 immediately. . Non-Emergent Contact Non-Emergency issues call your: Urologist Call Non-Emergent contact if: you have a fever, temperature is above 101, your pain is not controlled, your pain is worsening, your pain is unusual for you, your pain is concerning you, you have any medication questions . . "Provider Documentation" section prepared by Kedar Chino. . VTE Core Measure Inpt VTE Proph given/why not?: SCD's
--- NOTE | 2017-05-14 08:38 | [facility] Post Operative Brief Note ---
Immediate Operative Summary Operative Date May 14, 2017. Pre-Operative Diagnosis Left Ureteral Stone Post-Operative Diagnosis Same as pre-op Procedure(s) Performed Left Ureteral Extracorporeal Shock Wave Lithotripsy Surgeon Dr. Yony Chino Neon Light Installer Surgeon(s) None Estimated Blood Loss Zero Findings Good fragmentation on fluoroscopy Specimens None Drains NA Anesthesia GALMA Complication(s) None Disposition Recovery Room / PACU
--- NOTE | 2017-05-14 09:15 | Anesthesia Progress Nt - [facility] ---
Anesthesia Post Op Note Date & Time May 14, 2017 at 09:15 Vital Signs Pain Intensity: 0 Vital Signs Past 12 Hours Date Time Temp Pulse Resp B/P (MAP) Pulse Ox O2 Delivery O2 Flow Rate FiO2 05/14/17 08:49 36.6 76 16 117/45 98 Mask 5 05/14/17 06:35 37 75 16 114/81 (92) 95 Room Air Notes Mental Status: alert / awake / arousable, participated in evaluation Pt Amnestic to Procedure: Yes Nausea / Vomiting: adequately controlled Pain: adequately controlled Airway Patency, RR, SpO2: stable & adequate BP & HR: stable & adequate Hydration State: stable & adequate Anesthetic Complications: no major complications apparent
[2017-05-14 09:35] VITALS: TEMP 36.7
[2017-05-14 10:00] VITALS: BP 111/76; PULSE 80; O2SAT 95
== END | disposition home or self-care (01) ==
LOC: X.SURG 06:09
PROVIDERS: ATTEND Urology
DX: N20.0 Calculus of kidney (principal); F41.9 Anxiety disorder, unspecified; E78.5 Hyperlipidemia, unspecified; Z85.828 Personal history of other malignant neoplasm of skin; Z83.3 Family history of diabetes mellitus

== ENCOUNTER → 2017-05-24 | Outpatient (CLI) | payer BC ==
[~2017-05-24] MED LIST changes: -ATROPINE SULFATE 0.1 MG/ML 5ML SYR IV PRN; -CIPROFLOXACIN / D5W 400 MG IV SCH; -DEXAMETHASONE SOD INJ 4 MG/ML VIAL ONE; -EpHEDrine SULFATE INJ 50 MG/ML AMP IV PRN; -FENTANYL CITRATE INJ 50 MCG/1 ML 2 ML VIAL IV PRN; -FENTANYL CITRATE INJ 50 MCG/1 ML 2 ML VIAL ONE; -FLUMAZENIL 0.1 MG/1 ML 10 ML VIAL IV PRN; -GLYCOPYRROLATE INJ 0.2 MG/ML VIAL ONE; -HYDROmorphone INJ 2 MG/ML SYR/VIAL IV PRN; -LABETALOL HCL IV 5 MG/ML 20ML IV PRN; -LACTATED RINGER'S 1000ML 1,000 ML IV SCH; -LIDOCAINE HCL 2% 2 ML VIAL (20MG/ML) ONE; -MEPERIDINE HCL 25 MG/ML CARP IV PRN; -MIDAZOLAM HCL 1 MG/ML 2ML VIAL ONE; -NALOXONE HCL 0.4 MG/1 ML VIAL/CARP IV PRN; -NEOSTIGMINE METHYLSULFATE 5 MG/5 ML SYR ONE; -ONDANSETRON INJ 2 MG/ML 2 ML VIAL IV PRN; -ONDANSETRON INJ 2 MG/ML 2 ML VIAL ONE; -OXYCODONE/ACETAMINOPHEN 5-325 TAB PO PRN; -PHENYLEPHRINE 100MCG/ML 5ML SYR IV PRN; -PROPOFOL IV EMULSION 10 MG/ML 20 ML VIAL IV ONE; -ROCURONIUM BROMIDE 10 MG/ML 5 ML VIAL ONE; -SCOPOLAMINE 1.5 MG TDSY TD ONE
--- NOTE | 2017-05-24 11:15 | DIAGNOSTIC IMAGING REPORT ---
KUB CLINICAL HISTORY: N20.0 [id number] nephrocalcinosis COMPARISON STUDY: 05/13/2017 FINDINGS: The 7 mm calculus. See described is no longer identified. It may have passed. No evidence for significant nephrocalcinosis on the current study involving the left kidney. Small stable linear calcification lateral right kidney unchanged.. IMPRESSION: Apparent interval passage of a left ureteral calculus previously described. The above report was generated using voice recognition software. It may contain grammatical, syntax or spelling errors. Electronically signed by: Vincent De Los Santos M.D. 05/24/2017 11:13 AM Dictated Date/Time: 05/24/2017 11:12 AM
== END | disposition home or self-care (01) ==
LOC: C.RAD 10:50
PROVIDERS: ATTEND Urology
DX: N20.0 Calculus of kidney (principal)

== ENCOUNTER 2017-07-25 12:59 | Emergency (ER) | payer BC ==
[~2017-07-25] VITALS: Ht 160 cm; Wt 121.9 kg
[2017-07-25 13:15] VITALS: TEMP 37; Ht 160 cm; Wt 121.9 kg
[2017-07-25] MEDS ORDERED: POTA1080 PO (14:10)
--- NOTE | 2017-07-25 14:27 | DIAGNOSTIC IMAGING REPORT ---
RIGHT KNEE 3 VIEWS HISTORY: Right knee pain COMPARISON: None. FINDINGS: There is no fracture or dislocation. Soft tissues are unremarkable. No radiopaque foreign bodies. No knee effusion. Mild prepatellar soft tissue swelling IMPRESSION: No fractures. Electronically signed by: Geovanny Urrutia M.D. 07/25/2017 2:26 PM Dictated Date/Time: 07/25/2017 2:23 PM
[2017-07-25 15:11] VITALS: BP 132/77; PULSE 70; O2SAT 95
--- NOTE | 2017-07-25 16:55 | EMERGENCY ROOM VISIT NOTE ---
ED Visit Note First contact with patient: 13:59 CHIEF COMPLAINT: Right Knee injury HISTORY OF PRESENT ILLNESS: This 47-year-old white female patient injured the right knee today when she missed the last few steps coming down the stairs. She fell forward and landed on both knees. She only complains of pain in the right knee. Swelling has developed. She has been ambulatory with a limp. No prior history of significant knee injury. She denies any numbness or tingling. No catching or locking. Pain is diffuse about the knee. No ankle or hip pain. Her mother accompanies her today. No treatment other than ice. REVIEW OF SYSTEM: HEENT: No dizziness, visual problems, hearing loss, or tinnitus. There is no difficulty swallowing and no oral lesions are present. PULMONARY: No cough, shortness of breath, sputum production or hemoptysis. CARDIOVASCULAR: No chest pain, palpitations, shortness of breath or peripheral edema. GASTROINTESTINAL: No diarrhea, constipation, nausea, vomiting, or abdominal pain. GENITOURINARY: No dysuria, frequency, urgency or nocturia. NEUROLOGIC: No weakness, muscle tenderness, epilepsy or history of neurological problems. MUSCULOSKELETAL: No history of joint tenderness/swelling. No history of arthritis or arthralgias. SKIN: No rashes or lesions. PSYCHIATRIC: No history of depression or mental illness. ENDOCRINE: No history of diabetes, thyroid disorders, or abnormal hair growth. PMH: History of kidney stones. Previous surgeries: Lithotripsy, breast reduction Allergies: NKDA Current medications: Reviewed and filed in patient's chart Family history: Significant for diabetes, hypertension, and kidney stones. Parents are living. SOCIAL HISTORY: Patient lives at home with her and children. No tobacco use, daily EtOH use. Employed. PHYSICAL EXAM: Vital Signs: Reviewed Nurse's notes. Afebrile. Situational hypertension. MENTAL STATUS: Alert, oriented, and cooperative. Laying on a bed. No acute distress. Skin: Warm and dry with good turgor. No rashes or lesions. Mild ecchymosis present about the right knee. No significant ecchymosis at the left knee. Mild Erythema on the knee from her ice bag. Moderate intra-articular effusion in the right knee. The patient is not diaphoretic. Small abrasions present over the patella. KNEE: The right knee is tender to palpation over the medial and lateral joint lines as well as over the patellar tendon and patella. No significant discomfort in the quadriceps tendon or quadriceps. Stable collateral ligaments. Normal Sharif. No defect palpable in the patellar tendon or quadriceps tendon. There is a moderate joint effusion. The range of motion is limited secondary to pain. Full terminal extension. Flexion only to around 70. There is pain with palpation over the medial and lateral joint lines. There is also pain with circumduction testing. She is able to set her quad and perform a straight leg raise. The patient walks with an antalgic gait. Neurologic: Gross sensation is intact across both lower extremities by soft touch. Peripheral pulses are 2+. EMERGENCY DEPARTMENT COURSE: Radiographic imaging does not show any fractures. Intra-articular effusion is noted. Films were read by radiology. DIAGNOSIS: Right Knee contusion DISCHARGE INSTRUCTIONS: Patient was educated regarding today's findings. Conservative care measures were discussed. She was reassured that I find no evidence for fracture. Possibility of meniscal injury or bone contusion was discussed. I do not suspect ligamentous disruption or tendon disruption at this point. Ibuprofen, 600 mg every 6 hours if needed for pain. Supplement with Tylenol every 6 hours. Crutches were given and crutch instruction was reviewed. Weight-bear as tolerated. Ice and elevation to the knee for the next 72 hours. Jayden wrap was applied for compression control. Stay off the leg as much as possible and see your orthopedist in 4 or 5 days if you are not improving. Return to the ED for any acute changes or other concerns. Problem List Medical Problems: (1) Kidney stone Status: Resolved Current/Historical Medications Scheduled Citalopram Hydrobromide (Celexa), 10 MG PO QAM Potassium Citrate (Alkalinizer (Potassium Citrate ER), 1,080 MG PO BID Scheduled PRN Oxycodone Ir (Roxicodone Ir), 5 MG PO Q6H PRN for Pain Allergies Coded Allergies: No Known Allergies (Verified , 05/14/17) Vital Signs Date Time Temp Pulse Resp B/P (MAP) Pulse Ox O2 Delivery O2 Flow Rate FiO2 07/25/17 15:11 70 20 132/77 95 07/25/17 13:15 37.0 63 18 158/73 97 Room Air Departure Information Impression Primary Impression: Contusion of right knee, initial encounter Dispostion Home / Self-Care Forms HOME CARE DOCUMENTATION FORM, MOTRIN USE, TYLENOL USE, IMPORTANT VISIT INFORMATION Patient Instructions Contusion Bone Tx, My [facility] Additional Instructions Ice and elevate frequently to reduce pain and swelling Use your crutches as [id number] as tolerated Tylenol and Motrin every 6 hours as needed for discomfort Use the Jayden wrap for compression until swelling resolves Follow-up with your orthopedist on if symptoms have not improved by then
== END 2017-07-25 15:03 | disposition home or self-care (01) ==
LOC: C.EDB 13:00 → C.EDD 15:03
DX: S80.01XA Contusion of right knee, initial encounter (principal); W10.8XXA Fall (on) (from) other stairs and steps, initial encounter; Z87.442 Personal history of urinary calculi; Z79.899 Other long term (current) drug therapy; Z98.890 Other specified postprocedural states; Z82.49 Family history of ischemic heart disease and other diseases of the circulatory system; Z83.3 Family history of diabetes mellitus; Z84.1 Family history of disorders of kidney and ureter

== ENCOUNTER → 2017-10-05 | Outpatient (CLI) | payer BC ==
[~2017-10-05] MED LIST changes: -ACET-1256 PO; +POTA1080 PO; -TAMS0.4C38 PO
--- NOTE | 2017-10-05 08:59 | DIAGNOSTIC IMAGING REPORT ---
KUB CLINICAL HISTORY: Nephrolithiasis. FINDINGS: 2 AP supine abdominal radiographs are compared to study dated 05/24/2017 and correlated with abdominal CT dated 05/02/2017. There is a nonobstructed abdominal bowel gas pattern noting moderate colonic fecal retention. There is a 5 mm nonobstructing calculus projecting over the right kidney. No calcifications are clearly seen projecting over the left kidney or along the course of the ureters. Small phleboliths are observed in the pelvis. The bony structures appear intact. IMPRESSION: A nonobstructing calculus is identified in the right kidney. Electronically signed by: Jose Lunsford M.D. 10/05/2017 8:57 AM Dictated Date/Time: 10/05/2017 8:55 AM
== END | disposition home or self-care (01) ==
LOC: C.RAD 08:40
PROVIDERS: ATTEND Urology
DX: N20.0 Calculus of kidney (principal)

== ENCOUNTER → 2018-04-27 | Outpatient (CLI) | payer OTHER ==
[~2018-04-27] MED LIST changes: +CIPR1TAB10 PO; +OXYC-90 PO; -OXYC1TAB3 PO; +OXYC7.5T65 PO
== END | disposition home or self-care (01) ==
LOC: C.LABSPEC 10:27
PROVIDERS: ATTEND Urology
DX: N20.0 Calculus of kidney (principal)

== ENCOUNTER → 2018-04-27 | Outpatient (CLI) | payer OTHER ==
--- NOTE | 2018-04-27 10:13 | DIAGNOSTIC IMAGING REPORT ---
KUB HISTORY: Follow-up study in a patient with nephrolithiasis. History of recent lithotripsy N20.0 Nephrolithiasis COMPARISON: KUB 04/14/2018. FINDINGS: The bowel gas pattern is non-obstructive. Moderate colonic stool volume suggests constipation. There is no organomegaly. Renal shadows are partially obscured by bowel gas. Previously noted calculus about the interpolar right kidney is not definitively seen. No ureteral calculi identified. Calcifications about the pelvis suggest phleboliths. No pneumoperitoneum or pneumatosis. No fracture. IMPRESSION: No nephrolithiasis or ureteral calculi identified. The previously noted calculus of the right kidney is no longer identified. Electronically signed by: Michael Villanueva M.D. 04/27/2018 10:12 AM Dictated Date/Time: 04/27/2018 10:10 AM
== END | disposition home or self-care (01) ==
LOC: C.RAD 09:53
PROVIDERS: ATTEND Urology
DX: N20.0 Calculus of kidney (principal)

== ENCOUNTER 2018-11-22 13:30 | Inpatient (IN) ==
[2018-11-22] MEDS ORDERED: SODIUM CHLORIDE 0.9% 1000ML 1,000 ML IV ONE (13:48)
[2018-11-22] MEDS ORDERED: ONDANSETRON INJ 2 MG/ML 2 ML VIAL IV STA (13:48)
[2018-11-22] MEDS ORDERED: KETOROLAC TROMETHAMINE 15 MG/ML VIAL IV STA (13:48)
[2018-11-22 14:14] LABS: Basophils # (auto) 0.04 K/uL (0-0.2); Basophils % (auto) 0.2 %; Eosinophils # (auto) 0.08 K/uL (0-0.5); Eosinophils % (auto) 0.5 %; Hematocrit (blood only) 43.9 % (37-47); Hemoglobin 14.5 g/dL (12.0-16.0); Immature Granulocytes # (auto) 0.05 K/uL (0.00-0.02); Immature Granulocytes % (auto) 0.3 %; Lymphocytes # (auto) 2.51 K/uL (1.2-3.4); Lymphocytes % (auto) 15.2 %; Mean Corpuscular Volume 90.5 fL (80-100); Mean Platelet Volume 10.7 fL (7.4-10.4); Monocytes # (auto) 1.08 K/uL (0.11-0.59); Monocytes % (auto) 6.6 %; Neutrophils % (auto) 77.2 %; Platelet Count 259 K/uL (130-400); RDW Coefficient of Variation 13.5 % (11.5-14.5); RDW Standard Deviation 44.5 fL (36.4-46.3); Red Blood Count 4.85 M/uL (4.2-5.4); White Blood Count 16.46 K/uL (4.8-10.8)
[2018-11-22 14:31] LABS: BUN Creatinine Ratio 19.8 (10-20); Calcium 8.9 mg/dl (8.5-10.1); Est GFR (African American) 101.2; Est GFR (Non-African American) 87.3; Potassium 3.8 mmol/L (3.5-5.1)
[2018-11-22 14:36] LABS: Appearance Urine Cloudy (Clear); Bacteria Urine Automated 4+ (Negative); Bilirubin Urine Negative (Negative); Color Urine Dark Yellow; Epithelial Cell Urine Auto 20-30 /lpf (0-5); Glucose Urine UA Negative (Negative); Ketones Urine Negative (Negative); Leukocyte Esterase Urine 2+ (Negative); Nitrite Urine Positive (Negative); Protein Urine 1+ (Negative); Specific Gravity Urine 1.021 (1.000-1.030); Urobilinogen Urine Negative (Negative); WBC Urine Automated >30 /hpf (0-5)
--- NOTE | 2018-11-22 14:42 | CT Scan Report ---
CT OF THE ABDOMEN AND PELVIS WITHOUT CONTRAST CLINICAL HISTORY: Left lower quadrant pain. Hematuria. COMPARISON STUDY: CT of the abdomen and pelvis May 02, 2017. KUB November 22, 2018. TECHNIQUE: Axial images of the abdomen and pelvis were obtained without IV contrast. Images were revi ewed in the axial, sagittal, and coronal planes. Automated exposure control was utilized for the ashley dy. A dose lowering technique was utilized adhering to the principles of ALARA. FINDINGS: Lung bases are clear with the exception of subsegmental atelectasis. A 7 mm x 5 mm curvilin ear proximal left ureteral calculus is located at the L4-L5 level results in mild to moderate left hy droureteronephrosis. No additional ureteral calculi are present. Several left renal calculi measure u p to 6 mm. A few punctate right renal calculi are present. Water attenuation bilateral renal lesions are suboptimally assessed on this unenhanced exam but favor cysts. These measure up to 13 cm. Unenhan junior images of the spleen, adrenal pancreas are normal. There is no evidence for a bowel obstruction. The appendix is normal. There is colonic diverticulosis without evidence for acute diverticulitis. Th ere are no suspicious osseous lesions. IMPRESSION: 1. 7 mm x 5 mm curvilinear proximal left ureteral calculus located at the L4-L5 level that results in mild left to moderate hydroureteronephrosis. 2. Bilateral nephrolithiasis. 3. Numerous water attenuation hepatic lesions which are suboptimally assessed on this unenhanced exam but favor cysts. Electronically signed by: Chan Gustafson M.D. 11/22/2018 2:40 PM
[2018-11-22] MEDS ORDERED: CIPROFLOXACIN 400 MG/200 ML BAG IV STA (14:44)
--- NOTE | 2018-11-22 15:25 | History & Physical Report ---
Date of Service November 22, 2018 Assessment & Plan (1) Renal colic on left side: Hx of stones, litho x4 Noted on CTAP Morphine, zofran IVF, flomax Urology c/s pending (2) Anxiety: continue home meds (3) UTI (urinary tract infection): cipro started in the ED, will continue UA + for leuk est, neg for nitrities, cx pending (4) DVT prophylaxis: SCDs given possible need for OR History of Present Illness Primary Care Provider: Paul Esteves III, MD 48 y/o F c/o renal stone. Pt has hx of renal stones. She states she had L sided flank pain about 10 days ago. She made an appt with her PCP but after 2 days her pain resolved. She had an order for a KUB but once her pain resolved, she thought she had passed it and so did not follow up. Pt then started having pain again just prior to midnight, now moved around to the L lateral abd. It is more intense. She is having nausea but no emesis. She ate today. Pt is still urinating as her usual amount, no pain with urination. She did have the KUB today and it was negative, but given her ongoing pain at the time and hx of same , she was sent to the ED for further workup. This feels similar to prior episodes. She has been able to pass a stone on her own once, but required lithotripsy x4 prior stones. She has no pain or nausea at present. Pt denies fever, SOB, chest pain, c/d, LE pain or swelling. Allergies Allergy/AdvReac Type Severity Reaction Status Date / Time No Known Allergies Allergy Verified 11/22/18 14:01 Home Medications Home Medications Medication Instructions Recorded Confirmed Type citalopram 10 mg PO QAM 08/20/18 11/22/18 History potassium citrate 1,080 mg PO QAM 08/20/18 11/22/18 History oxycodone-acetaminophen 1 tab PO Q4H PRN 11/22/18 11/22/18 History Past Med/Surg History Medical History Anxiety Diverticular disease History of wisdom tooth extraction Kidney stones Surgical History History of abdominoplasty History of bilateral breast reduction surgery History of dilatation and curettage History of lithotripsy X4 Hx of LASIK B/L Social History Current Living Situation: Spouse Feels Safe at Home: Yes Smoking Status: Never smoker Second Hand Exposure: No Hx Alcohol Use: Yes (1-2 beers or glasses of wine several nights a week. Has nights without alcohol intake and no withdrawal issues) Alcohol type: beer and wine Hx Substance Use: No Beliefs That Will Affect Care: None Preferred Language: Serbian Communication Ability: Effective Review of Systems Pertinent positives and negatives reviewed in HPI--all others negative Physical Exam 2 Vital Signs (Past 24 Hours): Last Vital Signs Temp 36.7 C 11/22/18 13:36 Pulse 70 11/22/18 14:52 Resp 24 11/22/18 14:52 BP 113/65 11/22/18 14:52 Pulse Ox 96 11/22/18 14:52 Constitutional: WD/WN, vitals as above Eyes: normal visual kate by confrontation and + anicteric sclerae Neck: normal visual inspection and trachea midline Respiratory: normal respiratory effort, lungs clear to auscultation Cardiovascular: Rate/Rhythm: regular rate and regular rhythm Gastrointestinal (Abdomen): Inspection/Auscultation: abdomen not distended Percussion/Palpation: abdomen soft; abdomen nontender Musculoskeletal: Head/Neck/Chest: normocephalic and head atraumatic negative for edema, peripheral pulses intact Skin: no rashes, warm and dry Neurologic: awake; not confused Speech / Cognition: normal speech Psychiatric: A+Ox3, euthymic affect Results & Data Diagnostic Findings CT AP: 7x5mm L sided obstructing stone with hydro b/l stones noted Code Status & VTE Plan Code Status Full code VTE Prophylaxis Plan VTE Prophylaxis will be ordered: Yes
--- NOTE | 2018-11-22 17:12 | Emergency Department Note ---
Entered by Fausto Johnson acting as a scribe for History of Present Illness General Chief complaint: Abdominal Pain Stated complaint: ABDOMINAL PAIN Time Seen by Provider: 11/22/18 13:41 Source: patient Limitations: no limitations History of Present Illness Provider complaint: ABD Pain Onset (ago): hour(s) (14) Location: abdomen and left Pain Consistency: + other (waxing/waning) Maximum Pain Intensity: 2 Associated symptoms: + nausea/vomiting (nauseous, not vomiting) Treatments prior to arrival: none The patient is a 48 year old female who presents to the Emergency Room with complaints of waxing and waning abdominal pain that began at 0000 this morning, 14 hours ago. The patient states that she developed a pain in her left abdomen late last night/early this morning. She has a history of kidney stones and took one of her Oxycodone tablets this morning for her pain. She also notes noticing some blood in her urine, but denies any pain with urination. She also denies any blood in her stool or melena. The patient has not vomited at all but she does currently feel nauseous. She notes that her pain got "really bad" when she went back to work after having a KUB performed as an outpatient, but notes that it is improved right now. She has a history of diverticulitis as well. She has not chance of . Home Medications Home Medications Medication Instructions Recorded Confirmed Type citalopram 10 mg PO QAM 08/20/18 11/22/18 History potassium citrate 1,080 mg PO QAM 08/20/18 11/22/18 History oxycodone-acetaminophen 1 tab PO Q4H PRN 11/22/18 11/22/18 History Allergies Allergy/AdvReac Type Severity Reaction Status Date / Time No Known Allergies Allergy Verified 11/22/18 14:01 Past Med/Surg History Medical History Anxiety Diverticular disease History of wisdom tooth extraction Kidney stones Surgical History History of abdominoplasty History of bilateral breast reduction surgery History of dilatation and curettage History of lithotripsy X4 Hx of LASIK B/L Social History Current Living Situation: Spouse Feels Safe at Home: Yes Smoking Status: Never smoker Second Hand Exposure: No Hx Alcohol Use: Yes (1-2 beers or glasses of wine several nights a week. Has nights without alcohol intake and no withdrawal issues) Alcohol type: beer and wine Hx Substance Use: No Beliefs That Will Affect Care: None Preferred Language: Bhutanese Communication Ability: Effective Review of Systems See HPI for pertinent positives & negatives. and A total of 10 systems reviewed and were otherwise negative Physical Exam Vital Signs Vital Signs - 24 hr 11/22/18 13:36 11/22/18 14:14 11/22/18 14:52 Temperature 36.7 C Temperature Source Oral Sepsis Recent Fever Within 48 Hours No Sepsis New/Unexplained Change in Mental Status No Sepsis Action Taken by Nursing No Action Required Pulse Rate 68 Pulse Rate [Left Finger] 63 70 Respiratory Rate 16 18 24 Blood Pressure 136/71 Blood Pressure [Left Arm] 123/74 113/65 Blood Pressure Mean 92 Blood Pressure Mean [Left Arm] 90 81 Pulse Oximetry 93 95 96 Oxygen Delivery Method Room Air Room Air Room Air 11/22/18 15:01 11/22/18 15:31 11/22/18 16:19 Temperature Temperature Source Sepsis Recent Fever Within 48 Hours Sepsis New/Unexplained Change in Mental Status Sepsis Action Taken by Nursing Pulse Rate 74 65 Pulse Rate [Left Finger] 58 L Respiratory Rate 22 21 15 Blood Pressure 110/53 L 106/49 L Blood Pressure [Left Arm] 126/61 Blood Pressure Mean 72 68 Blood Pressure Mean [Left Arm] 82 Pulse Oximetry 93 96 94 Oxygen Delivery Method Room Air Room Air Physical Exam GENERAL: She is oriented to person, place, and time. She appears well- developed and well-nourished. She does not appear distressed. ____ HENT: Exam performed. -Head: Normocephalic and atraumatic. -Right Ear: External ear normal. No mastoid tenderness. -Left Ear: External ear normal. No mastoid tenderness. -Mouth/Throat: The oropharynx is clear and moist. No trismus in the jaw. No dental abscesses or uvula swelling. No oropharyngeal exudate or tonsillar abscesses. ____ EYES: Conjunctivae and EOM are normal. Pupils are equal, round, and reactive to light. Right eye exhibits no discharge. Left eye exhibits no discharge. No scleral icterus. ____ NECK: Normal range of motion. Neck supple. No JVD present. No spinous process tenderness present. No carotid bruit present. No rigidity. No tracheal deviation and normal range of motion present. No Brudzinski's sign and no Kernig 's sign noted. ____ CV: Normal rate, regular rhythm, normal heart sounds and intact distal pulses. There is no peripheral edema. Palpable radial pulses bue. ____ PULM/CHEST: Effort normal and breath sounds normal. No respiratory distress. No stridor. She has no wheezes. She has no rales. - Chest Wall: She exhibits no tenderness. ____ ABD: The abdomen is soft. Obese abdomen. Bowel sounds are normal. She has no distension. No mass is present. There is tenderness on palpation of the LLQ. There is no rebound, no guarding, no Dale's sign and no tenderness at McBurney 's point. Rovsig negative MUSC/SKEL: Normal range of motion. There is no peripheral edema, tenderness or deformity. LYMPH: No cervical adenopathy. ____ NEURO: She is alert and oriented to person, place, and time. She has normal strength. No cranial nerve deficit or sensory deficit. Coordination and gait normal. GCS eye subscore is 4. GCS verbal subscore is 5. GCS motor subscore is 6. cerbellar tests wnl. ____ SKIN: Skin is warm and dry. She is not diaphoretic. ____ PSYCH: She has a normal mood and affect. Her behavior is normal. Judgment and thought content normal. ____ Course 1344: Past medical records reviewed. The patient was evaluated in room B12B, and a complete history and physical examination were performed. 1511: I checked on the patient, vitals are stable. Labs show a leukocytosis of 16. Urine appears infected. CT scan shows a 7 mm x 5 mm kidney stone on the left causing moderate hydronephrosis. I reviewed the patient's case with Yari BULLOCK for Urology Dr. Baptiste. She states that she and Dr. Baptiste will be on consult for the patient. They aree with admission to medicine and [facility] as antibiotics. I reviewed the patient's case with Dr. Esme Man - [facility] Hospitalist. She will evaluate the patient for further management. Consultations Consultation #1: 1501: I reviewed the patient's case with Yari BULLOCK for Urology Dr. Baptiste. She states that she and Dr. Baptiste will be on consult for the patient. They aree with admission to medicine and Cipro as antibiotics. Consultation #2: 1512: I reviewed the patient's case with Dr. Esme Man - [facility] Hospitalist. She will evaluate the patient for further management. Administered Medications Discontinued Medications Sodium Chloride (Nss 1000ml) 1,000 mls @ 999 mls/hr IV .Q1H1M ONE Stop: 11/22/18 14:48 Last Infusion: 11/22/18 15:13 Dose: 0 mls/hr Admin: 11/22/18 14:12 Dose: 999 mls/hr Ciprofloxacin (Cipro) 400 mg in 200 mls @ 200 mls/hr IV NOW STA Stop: 11/22/18 15:43 Last Infusion: 11/22/18 15:55 Dose: 0 mls/hr Admin: 11/22/18 14:54 Dose: 200 mls/hr Ketorolac Tromethamine (Toradol) 15 mg IV NOW STA Stop: 11/22/18 13:49 Last Admin: 11/22/18 14:12 Dose: 15 mg Ondansetron HCl (Zofran) 4 mg IV NOW STA Stop: 11/22/18 13:49 Last Admin: 11/22/18 14:12 Dose: 4 mg Medical Decision Making Medical Records Attestation: I reviewed the patient's medical records. Home Medications Current Medication List: was personally reviewed by me Laboratory Data Attestation: I reviewed the patient's lab results. Result diagrams: 11/22/18 14:00 11/22/18 14:00 Lab Results 11/22/18 11/22/18 11/22/18 Range/Units 13:45 13:45 14:00 WBC 16.46 H (4.8-10.8) K/uL RBC 4.85 (4.2-5.4) M/uL Hgb 14.5 (12.0-16.0) g/dL Hct 43.9 (37-47) % MCV 90.5 (80-100) fL MCH 29.9 (25-34) pg MCHC 33.0 (32-36) g/dL RDW Std Deviation 44.5 (36.4-46.3) fL RDW Coeff of Lazara 13.5 (11.5-14.5) % Plt Count 259 (130-400) K/uL MPV 10.7 H (7.4-10.4) fL Immature Gran % (Auto) 0.3 % Neut % (Auto) 77.2 % Lymph % (Auto) 15.2 % [place] % (Auto) 6.6 % Eos % (Auto) 0.5 % Baso % (Auto) 0.2 % Immature Gran # (Auto) 0.05 H (0.00-0.02) K/uL Neut # (Auto) 12.70 H (1.4-6.5) K/uL Lymph # (Auto) 2.51 (1.2-3.4) K/uL [place] # (Auto) 1.08 H (0.11-0.59) K/uL Eos # (Auto) 0.08 (0-0.5) K/uL Baso # (Auto) 0.04 (0-0.2) K/uL Sodium (136-145) mmol/L Potassium (3.5-5.1) mmol/L Chloride (98-107) mmol/L Carbon Dioxide (21-32) mmol/L Anion Gap (3-11) BUN (7-18) mg/dl Creatinine (0.6-1.2) mg/dl Est Cr Clr Drug Dosing ml/min Est GFR ( Amer) Est GFR (Non-Af Amer) BUN/Creatinine Ratio (10-20) Glucose (70-99) mg/dl Calcium (8.5-10.1) mg/dl Urine Color Dark Yellow Urine Appearance Cloudy H (Clear) Urine pH 5.0 (4.5-7.5) Ur Specific [place] 1.021 (1.000-1.030) Urine Protein 1+ H (Negative) Urine Glucose (UA) Negative (Negative) Urine Ketones Negative (Negative) Urine Blood 2+ H (Negative) Urine Nitrite Positive H (Negative) Urine Bilirubin Negative (Negative) Urine Urobilinogen Negative (Negative) Ur Leukocyte Esterase 2+ H (Negative) Urine WBC (Auto) >30 H (0-5) /hpf Urine RBC (Auto) 10-30 H (0-4) /hpf U Hyaline Cast (Auto) 10-30 H (0-5) /lpf U Epithel Cells (Auto) 20-30 H (0-5) /lpf Urine Bacteria (Auto) 4+ H (Negative) POC Ur Test NEG (NEG) 11/22/18 Range/Units 14:00 WBC (4.8-10.8) K/uL RBC (4.2-5.4) M/uL Hgb (12.0-16.0) g/dL Hct (37-47) % MCV (80-100) fL MCH (25-34) pg MCHC (32-36) g/dL RDW Std Deviation (36.4-46.3) fL RDW Coeff of Lazara (11.5-14.5) % Plt Count (130-400) K/uL MPV (7.4-10.4) fL Immature Gran % (Auto) % Neut % (Auto) % Lymph % (Auto) % [place] % (Auto) % Eos % (Auto) % Baso % (Auto) % Immature Gran # (Auto) (0.00-0.02) K/uL Neut # (Auto) (1.4-6.5) K/uL Lymph # (Auto) (1.2-3.4) K/uL [place] # (Auto) (0.11-0.59) K/uL Eos # (Auto) (0-0.5) K/uL Baso # (Auto) (0-0.2) K/uL Sodium 140 (136-145) mmol/L Potassium 3.8 (3.5-5.1) mmol/L Chloride 106 (98-107) mmol/L Carbon Dioxide 27 (21-32) mmol/L Anion Gap 6.0 (3-11) BUN 16 (7-18) mg/dl Creatinine 0.79 (0.6-1.2) mg/dl Est Cr Clr Drug Dosing 109.0 ml/min Est GFR ( Amer) 101.2 Est GFR (Non-Af Amer) 87.3 BUN/Creatinine Ratio 19.8 (10-20) Glucose 116 H (70-99) mg/dl Calcium 8.9 (8.5-10.1) mg/dl Urine Color Urine Appearance (Clear) Urine pH (4.5-7.5) Ur Specific [place] (1.000-1.030) Urine Protein (Negative) Urine Glucose (UA) (Negative) Urine Ketones (Negative) Urine Blood (Negative) Urine Nitrite (Negative) Urine Bilirubin (Negative) Urine Urobilinogen (Negative) Ur Leukocyte Esterase (Negative) Urine WBC (Auto) (0-5) /hpf Urine RBC (Auto) (0-4) /hpf U Hyaline Cast (Auto) (0-5) /lpf U Epithel Cells (Auto) (0-5) /lpf Urine Bacteria (Auto) (Negative) POC Ur Test (NEG) Imaging Data Attestation: I personally reviewed and interpreted this imaging study as follows : Radiologist's Impression: CT OF THE ABDOMEN AND PELVIS WITHOUT CONTRAST CLINICAL HISTORY: Left lower quadrant pain. Hematuria. COMPARISON STUDY: CT of the abdomen and pelvis May 02, 2017. KUB November 22, 2018. TECHNIQUE: Axial images of the abdomen and pelvis were obtained without IV contrast. Images were reviewed in the axial, sagittal, and coronal planes. Automated exposure control was utilized for the study. A dose lowering technique was utilized adhering to the principles of ALARA. FINDINGS: Lung bases are clear with the exception of subsegmental atelectasis. A 7 mm x 5 mm curvilinear proximal left ureteral calculus is located at the L4- L5 level results in mild to moderate left hydroureteronephrosis. No additional ureteral calculi are present. Several left renal calculi measure up to 6 mm. A few punctate right renal calculi are present. Water attenuation bilateral renal lesions are suboptimally assessed on this unenhanced exam but favor cysts. These measure up to 13 cm. Unenhanced images of the spleen, adrenal pancreas are normal. There is no evidence for a bowel obstruction. The appendix is normal. There is colonic diverticulosis without evidence for acute diverticulitis. There are no suspicious osseous lesions. IMPRESSION: 1. 7 mm x 5 mm curvilinear proximal left ureteral calculus located at the L4-L5 level that results in mild left to moderate hydroureteronephrosis. 2. Bilateral nephrolithiasis. 3. Numerous water attenuation hepatic lesions which are suboptimally assessed on this unenhanced exam but favor cysts. Electronically signed by: Chan Gustafson M.D. 11/22/2018 2:40 PM Blood Pressure Blood Pressure Findings: Normal blood pressure MDM Narrative vitals are stable. Labs show a leukocytosis of 16. Urine appears infected. CT scan shows a 7 mm x 5 mm kidney stone on the left causing moderate hydronephrosis. I reviewed the patient's case with Yari BULLOCK for Urology Dr. Baptiste. She states that she and Dr. Baptiste will be on consult for the patient. They aree with admission to medicine and Cipro as antibiotics. I reviewed the patient's case with Dr. Esme Man - [facility] Hospitalist. She will evaluate the patient for further management. Impression & Plan Kidney stone, UTI (urinary tract infection), Hydroureteronephrosis Discharge Plan Visit Data Chief Complaint: Abdominal Pain Stated Complaint: ABDOMINAL PAIN ED Provider: Lalo Engel Discharge Problem: Kidney stone, UTI (urinary tract infection), Hydroureteronephrosis Patient Disposition: Being Evaluated by Hospitalist Forms Stand Alone Forms: Call Back Authorization, [facility] Prescriptions Prescriptions: No Action potassium citrate 10 mEq (1,080 mg) Tablet Extended Release 1,080 mg PO QAM RF: 0 citalopram 10 mg Tablet 10 mg PO QAM RF: 0 oxycodone-acetaminophen 7.5-325 mg tablet 1 tab PO Q4H PRN (Reason: Pain) RF: 0 Referrals Referrals: Paul Esteves III, MD [Primary Care Provider] - The scribe's documentation has been prepared under my direction and personally reviewed by me in its entirety. I confirm that the note above accurately reflects all work, treatment, procedures, and medical decision making performed by me.
[2018-11-22] MEDS ORDERED: ACETAMINOPHEN 325 MG TAB PO PRN (17:43)
[2018-11-22] MEDS ORDERED: ONDANSETRON INJ 2 MG/ML 2 ML VIAL IV PRN (17:43)
[2018-11-22] MEDS ORDERED: MoRPHine SULFATE 4 MG/ML 1 ML CARP\\VIAL IV PRN (17:43)
[2018-11-22] MEDS ORDERED: MAGNESIUM HYDROXIDE SUSP 30 ML UDC PO PRN (17:43)
[2018-11-22] MEDS ORDERED: OXYCODONE/APAP 7.5/325MG TAB PO PRN (17:43)
[2018-11-22] MEDS ORDERED: TAMSULOSIN HCL 0.4 MG CAP PO ONE (18:00)
[2018-11-22] MEDS: NSS + 20MEQ KCL 20 MEQ/1,000 ML BAG IV SCH (18:15)
[2018-11-22] MEDS ORDERED: TAMSULOSIN HCL 0.4 MG CAP PO SCH (21:00)
--- NOTE | 2018-11-23 00:15 | Consultation Report ---
DATE OF CONSULTATION: 11/22/2018 REASON FOR THE CONSULT: Left ureteral stone. HISTORY OF PRESENTATION: The patient is a 48-year-old female with a history of having multiple stones. She has had 4 lithotripsies in the past. She has been seen by Dr. Chino and had lithotripsy over the past summer. She currently has been started on potassium citrate to try to prevent stone formation. She had pain starting about 14 days ago for 2 days consistent with a stone on the left side, but this resolved until last night when it came back. She was able to get KUB that had been prescribed when she first had the pain 2 weeks ago, but did not get. Today, she went back to work, but the pain became increasingly severe and she became nauseous and stated that she felt hot although by the time, she got home, her temperature was normal, but then she did come to the Emergency Room, had a CT scan that showed a 5 mm proximal ureteral stone. KUB shows a faint calcification. The patient did have some pyuria and a slightly elevated white blood cell count, but currently she is afebrile and comfortable. She denies any dysuria and she is not sure is she has had urinary tract infection. She is not 100% sure she gave a good clean catch urine. She is also on Cipro. She is currently n.p.o. and she understands that if she feels a fever, she is to alert the nurses and if she has a temperature of 101 or greater, then come in and put a stent in. Currently, she is resting comfortably. ALLERGIES: She has no known drug allergies. PAST SURGICAL HISTORY: Besides lithotripsy significant for a tummy tuck and breast reduction as well as uterine ablation. PAST MEDICAL HISTORY: Negative for diabetes or high blood pressure. MEDICATIONS: She does take Celexa as well as potassium citrate. SOCIAL HISTORY: She also drinks, but does not smoke. PHYSICAL EXAMINATION: GENERAL: The patient is a slightly overweight with no obvious distress. She is having no respiratory distress. ABDOMEN: She has no flank pain to percussion. No abdominal pain. On examination, abdomen soft. There is no evidence of pedal edema. EXTREMITIES: Unremarkable. HEENT: Unremarkable. NEUROLOGIC: She is alert and oriented without any focal or sensory deficits. SKIN: Dry without any evidence of sweats or abnormality. A CAT scan again shows a 4 mm to 5 mm mid to proximal left ureteral stone. KUB shows a faint calcification in this area as well. ASSESSMENT: Left ureteral stone. PLAN: Reassess in the morning, possibly can be discharged if she remains afebrile. For lithotripsy and/or possible ureteroscopy, we will have to assess how she is doing again in the morning. If she becomes febrile during the night, then she will need a stent.
[2018-11-23] MEDS ORDERED: CIPROFLOXACIN 400 MG/200 ML BAG IV SCH (02:00)
[2018-11-23] MEDS: NSS + 20MEQ KCL 20 MEQ/1,000 ML BAG IV SCH ×2 (02:11→10:19)
[2018-11-23 07:55] LABS: Basophils # (auto) 0.02 K/uL (0-0.2); Basophils % (auto) 0.2 %; Eosinophils # (auto) 0.13 K/uL (0-0.5); Eosinophils % (auto) 1.2 %; Hematocrit (blood only) 40.4 % (37-47); Hemoglobin 13.2 g/dL (12.0-16.0); Immature Granulocytes # (auto) 0.02 K/uL (0.00-0.02); Immature Granulocytes % (auto) 0.2 %; Lymphocytes # (auto) 3.92 K/uL (1.2-3.4); Lymphocytes % (auto) 35.1 %; Mean Corpuscular Hgb Conc 32.7 g/dL (32-36); Mean Platelet Volume 10.6 fL (7.4-10.4); Monocytes # (auto) 0.92 K/uL (0.11-0.59); Monocytes % (auto) 8.2 %; Neutrophils # (auto) 6.16 K/uL (1.4-6.5); Neutrophils % (auto) 55.1 %; Platelet Count 244 K/uL (130-400); RDW Coefficient of Variation 13.6 % (11.5-14.5); RDW Standard Deviation 45.2 fL (36.4-46.3); Red Blood Count 4.39 M/uL (4.2-5.4); White Blood Count 11.17 K/uL (4.8-10.8)
[2018-11-23 08:21] LABS: BUN Creatinine Ratio 22.2 (10-20); Calcium 8.3 mg/dl (8.5-10.1); Creatinine Clr Calc Pharmacy 134.5 ml/min; Est GFR (African American) 120.6; Est GFR (Non-African American) 104.1; Potassium 4.3 mmol/L (3.5-5.1)
[2018-11-23] MEDS ORDERED: CITALOPRAM 20 MG TAB PO SCH (09:00)
[2018-11-23] MEDS ORDERED: POTASSIUM CITRATE 10 MEQ TAB PO SCH (09:00)
--- NOTE | 2018-11-23 09:21 | Urology Progress Note ---
Date of Service November 23, 2018 Assessment & Plan (1) Kidney stone: (2) UTI (urinary tract infection): Left 4-5mm Proximal ureteral stone VSS, Tmax 37.6C overnight, now 36.8C. Leukocytosis improved from 16 to 11 today. Abn UA UC&S prelim Ecoli- continue ciprofloxacin, awaiting sensitivities Denies any pain right now, minimal cramping overnight but did not require any medication Does not feel she passed stone, continues to strain. Check KUB now okay for clear liquid tray and advance diet as tolerated. UPDATE: KUB: 5mm L Proximal ureteral stone clearly visible. Options discussed with pt including observation with MET, ESWL, vs ureteroscopy with stent placement. Pt would like to pursue L ESWL this wednesday. Tentatively added to ESWL schedule. Understands to stop NSAIDs. Plan to report to outpatient office for H&P and paperwork. D/c with flomax, ciprofloxacin and pain control. Discussed with Dr. Gaston, hospitalist. agreeable. Subjective 48yoF with L 5mm proximal ureteral stone Tmax 37.6, down to 36.8 this AM. WBC improved from 16 to 11 today. Uneventful night. Appears comfortable, in no acute distress, nontoxic. Pt denies fevers/chills. Denies nausea/vomiting. Review of Systems All systems reviewed & are unremarkable except as noted in HPI & below Constitutional: no fever and no chills Eyes: no problem reported Ear, Nose, Mouth, Throat: no ear pain Respiratory: no cough and no dyspnea Cardiovascular: no chest pain Gastrointestinal: no abdominal pain Genitourinary (Female): + urinary urgency; no dysuria, no urinary hesitancy, no nocturia and no hematuria Musculoskeletal: no back pain Integumentary: no rash Neurologic: no behavioral changes Psychiatric: no behavioral changes Endocrine: no polydipsia Hematologic / Lymphatic: no unexplained weight loss Physical Exam 2 Vital Signs (Past 24 Hours): Last Vital Signs Temp 36.8 C 11/23/18 06:58 Pulse 76 11/23/18 06:58 Resp 18 11/23/18 06:58 BP 118/71 11/23/18 06:58 Pulse Ox 93 11/23/18 06:58 Constitutional: well developed and well nourished; no acute distress Eyes: no nystagmus ENMT: Ears: no hearing impairment Neck: trachea midline Respiratory: no respiratory distress, no labored breathing and does not use accessory muscles Cardiovascular: Vessels: no JVD Gastrointestinal (Abdomen): Inspection/Auscultation: abdomen not distended and no abdominal edema Musculoskeletal: Head/Neck/Chest: normocephalic Skin: no rashes, warm and dry Neurologic: awake; not confused and not obtunded Psychiatric: Orientation: alert and oriented x 3 Eye Contact: good eye contact Insight: good insight Results & Data Laboratory Results Laboratory Results - last 48 hr 11/22/18 11/22/18 11/22/18 13:45 13:45 14:00 WBC 16.46 H RBC 4.85 Hgb 14.5 Hct 43.9 MCV 90.5 MCH 29.9 MCHC 33.0 RDW Std Deviation 44.5 RDW Coeff of Lazara 13.5 Plt Count 259 MPV 10.7 H Immature Gran % (Auto) 0.3 Neut % (Auto) 77.2 Lymph % (Auto) 15.2 [place] % (Auto) 6.6 Eos % (Auto) 0.5 Baso % (Auto) 0.2 Immature Gran # (Auto) 0.05 H Neut # (Auto) 12.70 H Lymph # (Auto) 2.51 [place] # (Auto) 1.08 H Eos # (Auto) 0.08 Baso # (Auto) 0.04 Sodium Potassium Chloride Carbon Dioxide Anion Gap BUN Creatinine Est Cr Clr Drug Dosing Est GFR ( Amer) Est GFR (Non-Af Amer) BUN/Creatinine Ratio Glucose Calcium Urine Color Dark Yellow Urine Appearance Cloudy H Urine pH 5.0 Ur Specific [place] 1.021 Urine Protein 1+ H Urine Glucose (UA) Negative Urine Ketones Negative Urine Blood 2+ H Urine Nitrite Positive H Urine Bilirubin Negative Urine Urobilinogen Negative Ur Leukocyte Esterase 2+ H Urine WBC (Auto) >30 H Urine RBC (Auto) 10-30 H U Hyaline Cast (Auto) 10-30 H U Epithel Cells (Auto) 20-30 H Urine Bacteria (Auto) 4+ H POC Ur Test NEG 11/22/18 11/23/18 11/23/18 14:00 07:18 07:18 WBC 11.17 H RBC 4.39 Hgb 13.2 Hct 40.4 MCV 92.0 MCH 30.1 MCHC 32.7 RDW Std Deviation 45.2 RDW Coeff of Lazara 13.6 Plt Count 244 MPV 10.6 H Immature Gran % (Auto) 0.2 Neut % (Auto) 55.1 Lymph % (Auto) 35.1 [place] % (Auto) 8.2 Eos % (Auto) 1.2 Baso % (Auto) 0.2 Immature Gran # (Auto) 0.02 Neut # (Auto) 6.16 Lymph # (Auto) 3.92 H [place] # (Auto) 0.92 H Eos # (Auto) 0.13 Baso # (Auto) 0.02 Sodium 140 141 Potassium 3.8 4.3 Chloride 106 109 H Carbon Dioxide 27 25 Anion Gap 6.0 7.0 BUN 16 14 Creatinine 0.79 0.64 Est Cr Clr Drug Dosing 109.0 134.5 Est GFR ( Amer) 101.2 120.6 Est GFR (Non-Af Amer) 87.3 104.1 BUN/Creatinine Ratio 19.8 22.2 H Glucose 116 H 93 Calcium 8.9 8.3 L Urine Color Urine Appearance Urine pH Ur Specific [place] Urine Protein Urine Glucose (UA) Urine Ketones Urine Blood Urine Nitrite Urine Bilirubin Urine Urobilinogen Ur Leukocyte Esterase Urine WBC (Auto) Urine RBC (Auto) U Hyaline Cast (Auto) U Epithel Cells (Auto) Urine Bacteria (Auto) POC Ur Test _ (1) UTI (urinary tract infection) Encounter type: Hematuria presence: with hematuria Indwelling urinary catheter type: Urinary tract infection type: site unspecified Qualified Code( s): N39.0 - Urinary tract infection, site not specified; R31.9 - Hematuria, unspecified
--- NOTE | 2018-11-23 09:58 | XRay Report ---
KUB CLINICAL HISTORY: Left ureteral stone. FINDINGS: 2 AP supine abdominal radiographs are compared to radiographs and abdominal CT dated 019. There is a nonobstructed abdominal bowel gas pattern noting mild to moderate colonic fecal reten tion. There is a 5 mm calculus projecting over the mid left ureter overlying the left transverse proc ess of L5. Small calculi are noted in the right kidney. These are partially obscured by overlying col onic contents. The bony structures appear intact. IMPRESSION: 1. There is a 5 mm left ureteral stone projecting over the transverse process of L5. 2. Additional nonobstructing right renal calculi are partially imaged. Electronically signed by: Jose Lunsford M.D. 11/23/2018 9:56 AM
--- NOTE | 2018-11-23 11:09 | Discharge Summary ---
Date of Service November 23, 2018 Admission HPI Per Admitting Provider 48 y/o F c/o renal stone. Pt has hx of renal stones. She states she had L sided flank pain about 10 days ago. She made an appt with her PCP but after 2 days her pain resolved. She had an order for a KUB but once her pain resolved, she thought she had passed it and so did not follow up. Pt then started having pain again just prior to midnight, now moved around to the L lateral abd. It is more intense. She is having nausea but no emesis. She ate today. Pt is still urinating as her usual amount, no pain with urination. She did have the KUB today and it was negative, but given her ongoing pain at the time and hx of same , she was sent to the ED for further workup. This feels similar to prior episodes. She has been able to pass a stone on her own once, but required lithotripsy x4 prior stones. She has no pain or nausea at present. Pt denies fever, SOB, chest pain, c/d, LE pain or swelling. Principal Diagnosis Left ureteral stone with colic Discharge Exam Constitutional WD/WN, vitals as above Eyes PERRL, conjunctivae normal, anicteric sclerae Respiratory normal respiratory effort, lungs clear to auscultation Cardiovascular RRR, no murmur, no edema Gastrointestinal (Abdomen) normal bowel sounds, soft, nontender, no hepatosplenomegaly Psychiatric A+Ox3, euthymic affect Discharge Data Allergies Allergy/AdvReac Type Severity Reaction Status Date / Time adhesive Allergy Mild ITCHING Verified 11/23/18 15:24 Consultations 11/22/18 15:07 ED Decision to Admit Stat 11/22/18 17:43 Consult Urology Routine Ordered Studies 11/22/18 13:48 CT abd pelvis wo con Stat Hospital Course (1) Renal colic on left side: Hx of stones, litho x4. Noted to have stones in left ureter 5mm. Kept overnight- Given IVF, Pain medicine, Flomax, IV cipro. Urology consulted Pain improved by morning. Urine culture was growing E Coli. Discharged home on oral cipro, flomax. She already had percocet at home for pain control. To have Lithotripsy done on wednesday as outpatient. (2) Anxiety: (3) UTI (urinary tract infection): (4) DVT prophylaxis: Total Time Total Time Spent Total Time Spent (In Minutes): 35min Discharge Plan Discharge Items Patient Disposition: Home - Self-Care Reason For Visit: RENAL STONES Discharge Diagnosis: Renal Colic secondary to 5mm Left ureteral stone Discharge Goals: Decrease discomfort Activity: Resume your previous activity Non-emergency contact: Primary Care Provider and Urologist Call non-emergency contact if: you have any medication questions and your pain is worsening Diet: Regular Addtl Provider Instructions: You were admitted for having pain due to stone in your ureter. You received IV fluids and IV antibiotics and flomax. Since you pain is controlled - you are being discharged home with oral antibiotics, flomax and pain medicine and to have lithotripsy as outpatient by urologist. Prescriptions: New ciprofloxacin HCl [Cipro] 500 mg tablet 500 mg PO BID Qty: 14 RF: 0 Continue potassium citrate 10 mEq (1,080 mg) Tablet Extended Release 1,080 mg PO QAM RF: 0 citalopram 10 mg Tablet 10 mg PO QAM RF: 0 oxycodone-acetaminophen 7.5-325 mg tablet 1 tab PO Q4H PRN (Reason: Pain) RF: 0 No Action tamsulosin [Flomax] 0.4 mg capsule 0.4 mg PO QPM RF: 0 Stand-Alone Forms: [facility], [facility] Pain Management Discharge Orders: Discharge Order (Routine); Ordered 11/23/18 Ordered By: Beatrice Gaston Admission Data Admit Date/Time: 11/22/18 15:21 Attending Provider: Beatrice Gaston Admit Provider: Esme Man Primary Care Provider: Paul Esteves III Other Providers: Esme Man ; Kedar Chino I. Service: Surgical Services Other Interventions: Discharge Summary Assessment (RN) Last Done: 11/23/18 11:54 DC Date/Time DO NOT enter until pt leaves facility: 11/23/18 12:33
--- NOTE | 2018-11-23 12:12 | XRay Report ---
XR chest 1V portable HISTORY: preop outpatient COMPARISON: None. FINDINGS: Punctate dense nodule within the right midlung zone likely represents a calcified granuloma . This measures 5 mm. The lungs are otherwise clear. The heart is normal in size. No pleural effusion s. No pneumothorax. IMPRESSION: No acute process. Electronically signed by: Geovanny Urrutia M.D. 11/23/2018 12:10 PM
== END 2018-11-23 12:33 | disposition home or self-care (01) | DRG 694 ==
LOC: ED 13:30 → 3W 15:21 → SUATTDRO 15:21 → 3W 17:10
DX: B96.20 Unspecified Escherichia coli [E. coli] as the cause of diseases classified elsewhere; F41.9 Anxiety disorder, unspecified; Z87.442 Personal history of urinary calculi; N39.0 Urinary tract infection, site not specified; N13.2 Hydronephrosis with renal and ureteral calculous obstruction

== ENCOUNTER 2020-03-21 11:22 | Inpatient (IN) ==
[2020-03-21] MEDS ORDERED: SODIUM CHLORIDE 0.9% 1000ML 1,000 ML IV ONE (12:01)
[2020-03-21] MEDS ORDERED: SODIUM CHLORIDE 0.9% 500 ML IV ONE (12:01)
[2020-03-21] MEDS ORDERED: LACTATED RINGER'S 1,000 ML IV ONE (12:01)
[2020-03-21] MEDS ORDERED: ONDANSETRON INJ 2 MG/ML 2 ML VIAL IV STA ×2 (12:02→12:11)
--- NOTE | 2020-03-21 12:26 | Emergency Department Note ---
Impression & Plan Sepsis, Kidney stone on left side, Pyelonephritis, Nausea ED Provider Note Provider: James Cuellar MD DATE OF SERVICE: 03/21/2020 CHIEF COMPLAINT: Fever, weakness, abdominal pain, nausea HISTORY OF PRESENT ILLNESS: Patient is a 49-year-old female with a past medical history of gastric bypass in September, diverticulitis, common UTI presenting today with a complaint of developing weakness and fever since around 2 PM yesterday afternoon. States yesterday she did have some left lower quadrant abdominal pain that has since resolved. Apply heat pad to the area and that made it better. Denies any real headache. Slightly sore throat but denies any rhinorrhea or real difficulty breathing at this point. Denies abdominal pain today. Denies any urinary symptoms or diarrhea. Patient states a week ago she did have just under 24 hours of little bit of nausea and diarrhea. Patient states it resolved and she was well. Denies sick contacts. Denies trauma. Patient reports nausea without vomiting today. Denies recent travel. Does endorse some diffuse myalgias. Took Tylenol at 8 AM this morning. Did improve her fever somewhat from 103 Fahrenheit that she had then. REVIEW OF SYSTEMS: A total of 10 review of systems was obtained and negative except as stated above in the HPI. PAST MEDICAL HISTORY: As noted above MEDICATIONS: Reviewed her home medication list SOCIAL HISTORY: Non-smoker, PHYSICAL EXAM: GENERAL: alert and oriented in no acute distress on stretcher Head: normocephalic and atraumatic EYES: No injection, discharge or icterus. PERRL NECK: Trachea midline. Supple. ENT: Mucous membranes pink and moist. Pharynx without erythema or exudate. LUNGS: Airway patent. No retractions. Breath sounds clear HEART: Regular rate and rhythm. No chest wall tenderness ABDOMEN: Soft and non-tender, without guarding or rebound. BACK: No bilateral flank tenderness. SKIN: Acyanotic, warm, dry, without rashes EXTREMITIES: Without swelling, tenderness or deformity NEUROLOGICAL: No focal deficits. No aphasia. No facial droop or slurred speech. EK bpm normal sinus rhythm. No ST segment elevation or depression. Normal QTC. CONTINUOUS CARDIAC MONITORING: was ordered and showed a heart rate of 92 bpm in normal sinus rhythm HOSPITAL COURSE: 1201 Patient was first seen and H&P performed. 1350 Patient reassessed and updated. Patient was resting comfortably in bed. [address] Quintana of urology. Will evaluate the patient and likely OR. Will discuss with the hospitalist for admission. [address] Amparo MORAES hospitalist team Patient's laboratory studies and imaging reviewed. Differential includes Infection, dehydration, metabolic abnormality, hypo/hyperglycemia, electrolyte disturbance, anemia, hypoxia, cardiac sources, intracerebral event, toxicologic, neurologic, as well as other pathologies. IMPRESSION/MEDICAL DECISION MAKING: Patient presents with nonspecific myalgias fever and weakness. Has abdominal pain yesterday that has resolved. Some nausea reported without vomiting or diarrhea. History of gastric bypass. Does not appear meningeal. No evidence of large MACHINE SET UP. Broad work-up and differential was entertained including possible infectious source. Concern for some sepsis with the patient is febrile and mildly hypertensive and tachycardic upon arrival. Not hypoxic. I doubt this represents coronavirus. Low suspicion for pneumonia. Chest x-ray is completed. CT of the abdomen pelvis was completed given her history of abdominal pain as well as her history of diverticulitis and nephrolithiasis. Urinalysis was sent. Lactate and procalcitonin ordered. Given 2-1/2 L of IV fluid for volume resuscitation she states she feels dehydrated like she has not eaten or drinking very much. Given some Zofran for nausea control. Patient's lab do show a leukocytosis of 19 today without anemia. Lactates not significantly elevated. Renal function at baseline. No electrolyte abnormaliti es. No evidence of acute liver dysfunction. Urine is concerning with 4+ bacteria, greater than 30 white cells, 3+ leukoesterase, positive nitrate as well as 1+ blood. 10-20 epithelial cells were noted on the specimen. Negative test. CT abdomen pelvis shows evidence of mild left hydronephrosis with a 4 x 3 x 4 mm distal left ureteral stone. Question of possible pyelonephritis based on delayed enhancement is noted per the CT report. Patient likely does not have significant pain at this time and her nausea is improved on reevaluation. Temperature of 37.6 Celsius on reassessment. Order for some Tylenol for symptom control. Do have some concerns regarding the stone and infection given her initial presentation and fevers. Discussed with urology today's findings and her symptoms/case. Patient has been empirically given cefepime in the emergency department. She has been hemodynamically stable and vital signs improved with resuscitation here. DIAGNOSIS: Fever, weakness, UTI, pyelonephritis DISPOSITION: Hospitalist and urology will evaluate Patient was agreeable with this plan. Critical Care I have personally spent 36 minutes of critical care time in the direct management of this patient. This includes bedside care, interpretation of di agnostic studies, and testing, discussion with consultants, patient, and family members, and other required patient management activities. These 36 minutes is in excess of all separately billable procedures. Past Med/Surg History Medical History Diverticular disease Hydroureteronephrosis Kidney stone Kidney stones Renal colic on left side (Resolved) Urinary tract infection CURRENTLY ON ABX Surgical History H/O gastric bypass History of abdominoplasty History of bilateral breast reduction surgery History of dilatation and curettage 11/08/2017. General with LMA #4. No issues. History of endoscopy History of lithotripsy X5 - Usually LMA #4 05/14/17: MAC #3, ETT #7.5, HiLo Oral, Grade 1 View History of wisdom tooth extraction Hx of LASIK B/L Status post Mohs surgery for basal cell carcinoma Right mormon Family History Denies family history of Ovarian cancer Prostate cancer Myocardial infarction Breast cancer Colorectal cancer Stroke Social History Preferred Language: Faroese Communication Ability: Effective Visual Impairment: No Limitations Hearing Ability: Normal Assistant Manager Quality Management Required: No Beliefs That Will Affect Care: None marital status: Current Living Situation: Family current occupational status: employed Feels Safe at Home: Yes Smoking Status: Never smoker Second Hand Exposure: No ; Hx Alcohol Use: No (NONE IN LAST MONTH, AVERAGE PREVIOUSLY: 1 BEER A DAY) Hx Substance Use: No Childhood Exposure to Second-Hand Smoke: Yes Dental Care, Regularly: Yes Physical Activity Frequency: Does not Exercise Allergies Allergies Allergy/AdvReac Type Severity Reaction Status Date / Time adhesive Allergy Unknown ITCHING Verified 03/21/20 12:03 Home Meds Home Medications Medication Instructions Recorded Confirmed cholecalciferol (vitamin D3) 2,000 unit PO QAM 03/27/19 03/21/20 [Vitamin D3] cyanocobalamin (vitamin B-12) 1,000 mcg PO DAILY 03/21/20 03/21/20 [Vitamin B-12] potassium citrate 1 meq PO BID 03/21/20 03/21/20 Previous Rx's Medication Instructions Recorded citalopram 10 mg tablet 10 mg PO DAILY #90 tab 12/18/19 Results & Data (ED) Vital Signs Vital Signs - 24 hr 03/21/20 11:32 03/21/20 12:08 03/21/20 12:14 Temperature 38.0 C H Temperature Source Oral Pulse Rate 101 H 88 88 Pulse Rate from SpO2 Sensor 89 88 Respiratory Rate 20 17 25 H Respiratory Effort / Characteristics Non-Labored Spontaneous Respiratory Depth Normal Respiratory Pattern Regular Blood Pressure 92/52 L 114/75 Blood Pressure Mean 65 91 Pulse Oximetry 100 97 96 Oxygen Delivery Method Room Air Sepsis Recent Fever Within 48 Hours No Sepsis Action Taken by Nursing No Action Required 03/21/20 12:20 03/21/20 12:30 03/21/20 12:40 Temperature Temperature Source Pulse Rate 88 85 84 Pulse Rate from SpO2 Sensor 88 Respiratory Rate 24 24 20 Respiratory Effort / Characteristics Respiratory Depth Respiratory Pattern Blood Pressure Blood Pressure Mean Pulse Oximetry 96 Oxygen Delivery Method Sepsis Recent Fever Within 48 Hours Sepsis Action Taken by Nursing 03/21/20 12:45 03/21/20 12:50 03/21/20 13:00 Temperature Temperature Source Pulse Rate 82 89 80 Pulse Rate from SpO2 Sensor Respiratory Rate 23 21 22 Respiratory Effort / Characteristics Respiratory Depth Respiratory Pattern Blood Pressure 97/54 L 104/62 Blood Pressure Mean 65 67 Pulse Oximetry 96 Oxygen Delivery Method Sepsis Recent Fever Within 48 Hours Sepsis Action Taken by Nursing 03/21/20 13:01 03/21/20 13:10 03/21/20 13:30 Temperature Temperature Source Pulse Rate 79 81 84 Pulse Rate from SpO2 Sensor 86 Respiratory Rate 22 23 18 Respiratory Effort / Characteristics Respiratory Depth Respiratory Pattern Blood Pressure 112/65 Blood Pressure Mean 69 Pulse Oximetry 97 Oxygen Delivery Method Sepsis Recent Fever Within 48 Hours Sepsis Action Taken by Nursing 03/21/20 13:31 03/21/20 13:40 03/21/20 13:50 Temperature Temperature Source Pulse Rate 80 83 85 Pulse Rate from SpO2 Sensor 80 83 85 Respiratory Rate 22 21 24 Respiratory Effort / Characteristics Respiratory Depth Respiratory Pattern Blood Pressure Blood Pressure Mean Pulse Oximetry 97 98 98 Oxygen Delivery Method Sepsis Recent Fever Within 48 Hours Sepsis Action Taken by Nursing 03/21/20 14:00 Temperature 37.4 C Temperature Source Pulse Rate 81 Pulse Rate from SpO2 Sensor 81 Respiratory Rate 21 Respiratory Effort / Characteristics Respiratory Depth Respiratory Pattern Blood Pressure 108/67 Blood Pressure Mean 69 Pulse Oximetry 98 Oxygen Delivery Method Sepsis Recent Fever Within 48 Hours Sepsis Action Taken by Nursing Laboratory Data Result diagrams: 03/21/20 12:15 03/21/20 12:15 Lab Results 03/21/20 03/21/20 03/21/20 Range/Units 12:15 12:15 12:15 WBC 19.31 H (4.8-10.8) K/uL RBC 4.53 (4.2-5.4) M/uL Hgb 14.1 (12.0-16.0) g/dL Hct 42.6 (37-47) % MCV 94.0 (80-100) fL MCH 31.1 (25-34) pg MCHC 33.1 (32-36) g/dL RDW Std Deviation 45.0 (36.4-46.3) fL RDW Coeff of Lazara 13.2 (11.5-14.5) % Plt Count 228 (130-400) K/uL MPV 11.1 H (7.4-10.4) fL Immature Gran % (Auto) 0.5 % Neut % (Auto) 83.7 % Lymph % (Auto) 5.2 % [place] % (Auto) 10.4 % Eos % (Auto) 0.0 % Baso % (Auto) 0.2 % Immature Gran # (Auto) 0.10 H (0.00-0.02) K/uL Neut # (Auto) 16.16 H (1.4-6.5) K/uL Lymph # (Auto) 1.01 L (1.2-3.4) K/uL [place] # (Auto) 2.01 H (0.11-0.59) K/uL Eos # (Auto) 0.00 (0-0.5) K/uL Baso # (Auto) 0.03 (0-0.2) K/uL PT 11.8 (9.0-12.0) Seconds INR 1.1 (0.9-1.1) APTT 29.9 (21.0-31.0) Seconds PTT Ratio 1.1 Sodium 138 (136-145) mmol/L Potassium 3.9 (3.5-5.1) mmol/L Chloride 104 (98-107) mmol/L Carbon Dioxide 27 (21-32) mmol/L Anion Gap 7.0 (3-11) BUN 15 (7-18) mg/dl Creatinine 0.81 (0.6-1.2) mg/dl Est Cr Clr Drug Dosing 80.2 ml/min Est GFR ( Amer) 97.5 Est GFR (Non-Af Amer) 84.1 BUN/Creatinine Ratio 18.2 (10-20) Glucose 134 H (70-99) mg/dl Lactate (0.4-2.0) mmol/L Calcium 9.2 (8.5-10.1) mg/dl Magnesium 1.9 (1.8-2.4) mg/dl Total Bilirubin 0.8 (0.2-1) mg/dl AST 14 L (15-37) U/L ALT 24 (12-78) U/L Alkaline Phosphatase 92 (45-117) U/L Troponin I 0.018 (0-0.045) ng/ml Total Protein 7.4 (6.4-8.2) gm/dl Albumin 3.5 (3.4-5.0) gm/dl Globulin 3.9 (2.5-4.0) gm/dl Albumin/Globulin Ratio 0.9 (0.9-2) Procalcitonin (0-0.5) ng/ml Urine Color Urine Appearance (Clear) Urine pH (4.5-7.5) Ur Specific Luther (1.000-1.030) Urine Protein (Negative) Urine Glucose (UA) (Negative) Urine Ketones (Negative) Urine Blood (Negative) Urine Nitrite (Negative) Urine Bilirubin (Negative) Urine Urobilinogen (Negative) Ur Leukocyte Esterase (Negative) Urine WBC (Auto) (0-5) /hpf Urine RBC (Auto) (0-4) /hpf U Hyaline Cast (Auto) (0-5) /lpf U Epithel Cells (Auto) (0-5) /lpf Urine Bacteria (Auto) (Negative) POC Ur Test (NEG) 03/21/20 03/21/20 03/21/20 Range/Units 12:15 12:15 12:30 WBC (4.8-10.8) K/uL RBC (4.2-5.4) M/uL Hgb (12.0-16.0) g/dL Hct (37-47) % MCV (80-100) fL MCH (25-34) pg MCHC (32-36) g/dL RDW Std Deviation (36.4-46.3) fL RDW Coeff of Lazara (11.5-14.5) % Plt Count (130-400) K/uL MPV (7.4-10.4) fL Immature Gran % (Auto) % Neut % (Auto) % Lymph % (Auto) % [place] % (Auto) % Eos % (Auto) % Baso % (Auto) % Immature Gran # (Auto) (0.00-0.02) K/uL Neut # (Auto) (1.4-6.5) K/uL Lymph # (Auto) (1.2-3.4) K/uL [place] # (Auto) (0.11-0.59) K/uL Eos # (Auto) (0-0.5) K/uL Baso # (Auto) (0-0.2) K/uL PT (9.0-12.0) Seconds INR (0.9-1.1) APTT (21.0-31.0) Seconds PTT Ratio Sodium (136-145) mmol/L Potassium (3.5-5.1) mmol/L Chloride (98-107) mmol/L Carbon Dioxide (21-32) mmol/L Anion Gap (3-11) BUN (7-18) mg/dl Creatinine (0.6-1.2) mg/dl Est Cr Clr Drug Dosing ml/min Est GFR ( Amer) Est GFR (Non-Af Amer) BUN/Creatinine Ratio (10-20) Glucose (70-99) mg/dl Lactate 1.2 (0.4-2.0) mmol/L Calcium (8.5-10.1) mg/dl Magnesium (1.8-2.4) mg/dl Total Bilirubin (0.2-1) mg/dl AST (15-37) U/L ALT (12-78) U/L Alkaline Phosphatase (45-117) U/L Troponin I (0-0.045) ng/ml Total Protein (6.4-8.2) gm/dl Albumin (3.4-5.0) gm/dl Globulin (2.5-4.0) gm/dl Albumin/Globulin Ratio (0.9-2) Procalcitonin 0.16 (0-0.5) ng/ml Urine Color Dark Yellow Urine Appearance Turbid A (Clear) Urine pH 7.0 (4.5-7.5) Ur Specific Luther 1.023 (1.000-1.030) Urine Protein 1+ H (Negative) Urine Glucose (UA) Negative (Negative) Urine Ketones 1+ H (Negative) Urine Blood 1+ H (Negative) Urine Nitrite Positive A (Negative) Urine Bilirubin Negative (Negative) Urine Urobilinogen Negative (Negative) Ur Leukocyte Esterase 3+ H (Negative) Urine WBC (Auto) >30 H (0-5) /hpf Urine RBC (Auto) 10-30 H (0-4) /hpf U Hyaline Cast (Auto) 1-5 (0-5) /lpf U Epithel Cells (Auto) 10-20 H (0-5) /lpf Urine Bacteria (Auto) 4+ H (Negative) POC Ur Test (NEG) 03/21/20 Range/Units 12:30 WBC (4.8-10.8) K/uL RBC (4.2-5.4) M/uL Hgb (12.0-16.0) g/dL Hct (37-47) % MCV (80-100) fL MCH (25-34) pg MCHC (32-36) g/dL RDW Std Deviation (36.4-46.3) fL RDW Coeff of Lazara (11.5-14.5) % Plt Count (130-400) K/uL MPV (7.4-10.4) fL Immature Gran % (Auto) % Neut % (Auto) % Lymph % (Auto) % [place] % (Auto) % Eos % (Auto) % Baso % (Auto) % Immature Gran # (Auto) (0.00-0.02) K/uL Neut # (Auto) (1.4-6.5) K/uL Lymph # (Auto) (1.2-3.4) K/uL [place] # (Auto) (0.11-0.59) K/uL Eos # (Auto) (0-0.5) K/uL Baso # (Auto) (0-0.2) K/uL PT (9.0-12.0) Seconds INR (0.9-1.1) APTT (21.0-31.0) Seconds PTT Ratio Sodium (136-145) mmol/L Potassium (3.5-5.1) mmol/L Chloride (98-107) mmol/L Carbon Dioxide (21-32) mmol/L Anion Gap (3-11) BUN (7-18) mg/dl Creatinine (0.6-1.2) mg/dl Est Cr Clr Drug Dosing ml/min Est GFR ( Amer) Est GFR (Non-Af Amer) BUN/Creatinine Ratio (10-20) Glucose (70-99) mg/dl Lactate (0.4-2.0) mmol/L Calcium (8.5-10.1) mg/dl Magnesium (1.8-2.4) mg/dl Total Bilirubin (0.2-1) mg/dl AST (15-37) U/L ALT (12-78) U/L Alkaline Phosphatase (45-117) U/L Troponin I (0-0.045) ng/ml Total Protein (6.4-8.2) gm/dl Albumin (3.4-5.0) gm/dl Globulin (2.5-4.0) gm/dl Albumin/Globulin Ratio (0.9-2) Procalcitonin (0-0.5) ng/ml Urine Color Urine Appearance (Clear) Urine pH (4.5-7.5) Ur Specific Luther (1.000-1.030) Urine Protein (Negative) Urine Glucose (UA) (Negative) Urine Ketones (Negative) Urine Blood (Negative) Urine Nitrite (Negative) Urine Bilirubin (Negative) Urine Urobilinogen (Negative) Ur Leukocyte Esterase (Negative) Urine WBC (Auto) (0-5) /hpf Urine RBC (Auto) (0-4) /hpf U Hyaline Cast (Auto) (0-5) /lpf U Epithel Cells (Auto) (0-5) /lpf Urine Bacteria (Auto) (Negative) POC Ur Test NEG (NEG) Administered Medications Ioversol (Optiray 320 100ml) 93 ml IV ONCE PRN PRN Reason: Interaction Checking Stop: 03/25/20 13:26 Last Admin: 03/21/20 13:28 Dose: 93 ml Documented by: [id number] Discontinued Medications Sodium Chloride (Nss 1000ml) 1,000 mls @ 999 mls/hr IV .Q1H1M ONE Stop: 03/21/20 13:01 Last Infusion: 03/21/20 13:31 Dose: 0 mls/hr Documented by: [id number] Admin: 03/21/20 12:24 Dose: 999 mls/hr Documented by: [id number] Lactated Ringer's (Lr) 1,000 mls @ 999 mls/hr IV .Q1H1M ONE Stop: 03/21/20 13:01 Last Admin: 03/21/20 13:31 Dose: 999 mls/hr Documented by: [id number] Sodium Chloride (Nss) 500 mls @ 999 mls/hr IV .Q31M ONE Stop: 03/21/20 12:31 Last Infusion: 03/21/20 13:17 Dose: 0 mls/hr Documented by: [id number] Admin: 03/21/20 12:24 Dose: 999 mls/hr Documented by: [id number] Cefepime HCl 2,000 mg/ Syringe 20 mls @ 5.5 mls/min IV NOW STA; Protocol Stop: 03/21/20 13:09 Last Admin: 03/21/20 13:15 Dose: 5.5 mls/min Documented by: [id number] Acetaminophen (Ofirmev) 1,000 mg in 100 mls @ 400 mls/hr IV NOW STA Stop: 03/21/20 13:58 Last Infusion: 03/21/20 14:28 Dose: 0 mls/hr Documented by: [id number] Admin: 03/21/20 14:00 Dose: 400 mls/hr Documented by: [id number] Ondansetron HCl (Zofran) 4 mg IV NOW STA Stop: 03/21/20 12:03 Last Admin: 03/21/20 12:23 Dose: 4 mg Documented by: [id number] Ondansetron HCl (Zofran) 4 mg IV NOW STA Stop: 03/21/20 12:12 Last Admin: 03/21/20 12:45 Dose: Not Given Documented by: [id number] Discharge Plan Visit Data Chief Complaint: Abdominal Pain Stated Complaint: ABD PAIN,FEVER,SOB,CHILLS,VOMITNG ED Provider: James Cuellar Discharge Problem: Sepsis, Kidney stone on left side, Pyelonephritis, Nausea Patient Disposition: Admitted As Inpatient Condition: Fair Prescriptions Prescriptions: No Action citalopram 10 mg tablet 10 mg PO DAILY Qty: 90 RF: 3 cholecalciferol (vitamin D3) [Vitamin D3] 2,000 unit Capsule 2,000 unit PO QAM RF: 0 cyanocobalamin (vitamin B-12) [Vitamin B-12] 1,000 mcg Tablet 1,000 mcg PO DAILY RF: 0 potassium citrate 10 mEq (1,080 mg) tablet extended release 1 meq PO BID RF: 0 Referrals Referrals: Paul Esteves III, MD [Primary Care Provider] - Discharge Problem: Sepsis Qualifiers: Sepsis type: sepsis due to unspecified organism Sepsis acute organ dysfunction status: without acute organ dysfunction Qualified Code(s): A41.9 - Sepsis, unspecified organism
[2020-03-21 12:45] LABS: Basophils # (auto) 0.03 K/uL (0-0.2); Basophils % (auto) 0.2 %; Hematocrit (blood only) 42.6 % (37-47); Hemoglobin 14.1 g/dL (12.0-16.0); Immature Granulocytes % (auto) 0.5 %; Lymphocytes # (auto) 1.01 K/uL (1.2-3.4); Lymphocytes % (auto) 5.2 %; Mean Corpuscular Hemoglobin 31.1 pg (25-34); Mean Corpuscular Hgb Conc 33.1 g/dL (32-36); Mean Platelet Volume 11.1 fL (7.4-10.4); Monocytes # (auto) 2.01 K/uL (0.11-0.59); Monocytes % (auto) 10.4 %; Neutrophils # (auto) 16.16 K/uL (1.4-6.5); Neutrophils % (auto) 83.7 %; Platelet Count 228 K/uL (130-400); RDW Coefficient of Variation 13.2 % (11.5-14.5); Red Blood Count 4.53 M/uL (4.2-5.4); White Blood Count 19.31 K/uL (4.8-10.8)
--- NOTE | 2020-03-21 12:55 | XRay Report ---
XR chest 1V portable HISTORY: fever, weakness COMPARISON: Chest 11/23/2018. FINDINGS: The lungs are clear. Cardiac silhouette is normal in size. No pleural effusions. No pneumot horax. IMPRESSION: No acute process. ACT 112: Negative or not required by law. Electronically signed by: Geovanny Urrutia M.D. 03/21/2020 12:54 PM
[2020-03-21 12:56] LABS: INR 1.1 (0.9-1.1); Partial Thromboplastin Ratio 1.1; Partial Thromboplastin Time 29.9 Seconds (21.0-31.0); Prothrombin Time 11.8 Seconds (9.0-12.0)
[2020-03-21 12:59] LABS: Appearance Urine Turbid (Clear); Bacteria Urine Automated 4+ (Negative); Bilirubin Urine Negative (Negative); Blood Urine 1+ (Negative); Color Urine Dark Yellow; Glucose Urine UA Negative (Negative); Ketones Urine 1+ (Negative); Leukocyte Esterase Urine 3+ (Negative); Nitrite Urine Positive (Negative); Protein Urine 1+ (Negative); Specific Gravity Urine 1.023 (1.000-1.030); Urobilinogen Urine Negative (Negative); WBC Urine Automated >30 /hpf (0-5)
[2020-03-21 13:03] LABS: Est GFR (African American) 97.5; Potassium 3.9 mmol/L (3.5-5.1)
[2020-03-21 13:04] LABS: Albumin Level 3.5 gm/dl (3.4-5.0); BUN Creatinine Ratio 18.2 (10-20); Calcium 9.2 mg/dl (8.5-10.1); Creatinine Clr Calc Pharmacy 80.2 ml/min; Est GFR (Non-African American) 84.1; Magnesium 1.9 mg/dl (1.8-2.4)
[2020-03-21] MEDS ORDERED: CEFEPIME 2,000 MG in SYRINGE 7.5 ML IV STA (13:06)
[2020-03-21 13:08] LABS: Albumin Globulin Ratio 0.9 (0.9-2); Bilirubin,Total 0.8 mg/dl (0.2-1); Globulin 3.9 gm/dl (2.5-4.0); Total Protein 7.4 gm/dl (6.4-8.2); Troponin I 0.018 ng/ml (0-0.045)
[2020-03-21] MEDS ORDERED: IOVERSOL 100ml IV PRN (13:27)
[2020-03-21] MEDS ORDERED: ACETAMINOPHEN 1,000 MG/100 ML VIAL IV STA (13:44)
--- NOTE | 2020-03-21 13:47 | CT Scan Report ---
ABDOMEN AND PELVIS CT WITH IV CONTRAST CT DOSE: 740.34 mGycm HISTORY: Acute fever with nausea and left lower quadrant abdominal pain. fever, nausea, LLQ pain TECHNIQUE: Multiaxial CT images of the abdomen and pelvis were performed following the IV administrat ion of 93 cc of Optiray 320, A dose lowering technique was utilized adhering to the principles of AL ELVI. COMPARISON STUDY: CT abdomen and pelvis 07/03/2019 FINDINGS: Mild linear subsegmental bibasilar atelectasis. No pneumatosis or pneumoperitoneum. The imaged inferi or cardiac chambers are unremarkable. Spleen measures within the upper limits of normal at 14.1 cm. P ancreas and adrenal glands are unremarkable. Cholecystectomy. Multiple hepatic cysts are redemonstrat ed, the large cyst within the inferior pole right kidney measuring 13.7 cm. Curvilinear calcification within the superior right hepatic lobe is unchanged. Patency of the hepatic and portal veins. Patchy decreased enhancement of the left kidney with moderate left perinephric stranding. Mild urothe lial thickening of the left collecting system and ureter is noted along with mild hydroureteronephros is secondary to a 4 x 3 x 4 mm calculus of the distal left ureter at the level of the mid sacrum, mariangel ge 311 series 3. Nonobstructing punctate calculi of the left kidney. Nonobstructing 6 mm calculus of the interpolar right kidney. There are a few subcentimeter hypodensities of the kidneys suggestive of probable cysts. Unremarkable urinary bladder and uterus. No aortic aneurysm or adenopathy. Postoperative changes of prior Armando-en-Y gastric bypass. 1.7 cm hyperdense focus involving a loop of distal small bowel the pelvis is unchanged from prior and may be postsurgical. Colonic diverticulosis without acute diverticulitis. Noninflamed appendix. Soft tissues are unremarkable. Bones appear inta ct. IMPRESSION: 1. Mild left-sided hydroureteronephrosis secondary to an obstructing 4 x 3 x 4 mm calculus of the dis laverne left ureter. Delayed nephrogram with heterogeneously decreased enhancement of the superior pole l eft kidney is noted in conjunction with left-sided urothelial thickening. Findings may be reactive ho wever should be correlated with urinalysis to exclude superimposed pyelonephritis with pyelitis/urete ritis. 2. Nonobstructing bilateral nephrolithiasis. 3. No bowel obstruction or bowel wall thickening. 4. Colonic diverticulosis. 5. Chronic findings as above. ACT 112: Negative or not required by law. The above report was generated using voice recognition software. It may contain grammatical, syntax o r spelling errors. Electronically signed by: Michael Villanueva M.D. 03/21/2020 1:45 PM
--- NOTE | 2020-03-21 14:34 | Urology Consultation ---
Date of Consultation March 21, 2020 Assessment & Plan (1) Kidney stone on left side: (2) Sepsis: Distal left ureteral stone with urosepsis Improved already with some hydration but requires immediate intervention in the form of cystoscopy, left ureteral stent placement Discussed this with the patient who is understanding and in agreement with moving forward with surgery Consent is on the chart Will require IV antibiotics until we can determine appropriate oral transition History of Present Illness History of Present Illness 49-year-old female with a history of kidney stones as well as a history of prior gastric bypass who presented to the emergency room today secondary to fevers, ill feeling overall, left flank pain CT revealed a 4 mm distal left ureteral calculus with UA concerning for infection Overall, she exhibits signs of urosepsisfebrile upon arrival, initially tachycardic She has improved somewhat with hydration but still requires intervention Allergies Allergy/AdvReac Type Severity Reaction Status Date / Time adhesive Allergy Unknown ITCHING Verified 03/21/20 12:03 Home Medications Home Medications Medication Instructions Recorded Confirmed Type cholecalciferol (vitamin D3) 2,000 unit PO QAM 03/27/19 03/21/20 History [Vitamin D3] citalopram 10 mg tablet 10 mg PO DAILY #90 tab 12/18/19 03/21/20 Rx cyanocobalamin (vitamin B-12) 1,000 mcg PO DAILY 03/21/20 03/21/20 History [Vitamin B-12] potassium citrate 1 meq PO BID 03/21/20 03/21/20 History Patient History Medical History Diverticular disease Hydroureteronephrosis Kidney stone Kidney stones Renal colic on left side (Resolved) Urinary tract infection CURRENTLY ON ABX Surgical History H/O gastric bypass History of abdominoplasty History of bilateral breast reduction surgery History of dilatation and curettage 11/08/2017. General with LMA #4. No issues. History of endoscopy History of lithotripsy X5 - Usually LMA #4 05/14/17: MAC #3, ETT #7.5, HiLo Oral, Grade 1 View History of wisdom tooth extraction Hx of LASIK B/L Status post Mohs surgery for basal cell carcinoma Right yazidi Family History Denies family history of Ovarian cancer Prostate cancer Myocardial infarction Breast cancer Colorectal cancer Stroke Social History Preferred Language: Kosovan Communication Ability: Effective Visual Impairment: No Limitations Hearing Ability: Normal Product Safety Tester Required: No Beliefs That Will Affect Care: None marital status: Current Living Situation: Family current occupational status: employed Feels Safe at Home: Yes Smoking Status: Never smoker Second Hand Exposure: No ; Hx Alcohol Use: No (NONE IN LAST MONTH, AVERAGE PREVIOUSLY: 1 BEER A DAY) Hx Substance Use: No Childhood Exposure to Second-Hand Smoke: Yes Dental Care, Regularly: Yes Physical Activity Frequency: Does not Exercise Review of Systems Constitutional: + fever, + chills and + sweats Ear, Nose, Mouth, Throat: no hearing loss Respiratory: no cough and no chest congestion Cardiovascular: no chest pain Gastrointestinal: + abdominal pain and + nausea Genitourinary: + problem reported Musculoskeletal: + back pain; no radicular pain Integumentary: no rash Neurologic: no falls and no numbness Psychiatric: no behavioral changes Endocrine: no fatigue Physical Exam Constitutional: well developed and well nourished Neck: neck nontender Respiratory: normal respiratory effort; no respiratory distress and does not use accessory muscles Cardiovascular: Rate/Rhythm: regular rate Vessels: radial pulses present Extremities: no edema Gastrointestinal (Abdomen): Inspection/Auscultation: abdomen normal to inspection Percussion/Palpation: abdomen soft; abdomen nontender and no guarding Musculoskeletal: Head/Neck/Chest: normocephalic and head atraumatic Extremities: extremities normal to inspection Skin: no rashes and no lesions Trauma: no evidence of skin trauma Neurologic: awake; not obtunded Speech / Cognition: normal speech Motor/Sensory: no tremor Psychiatric: Orientation: alert and oriented x 3 Lymphatic: no lymphadenopathy Results & Data Vital Signs (Past 12 Hours) Vital Signs Temp Pulse Resp BP Pulse Ox 03/21/20 14:00 37.4 C 81 21 108/67 98 03/21/20 13:50 85 24 98 03/21/20 13:40 83 21 98 03/21/20 13:31 80 22 97 03/21/20 13:30 84 18 112/65 97 06/11/20 13:10 81 23 03/21/20 13:01 79 22 03/21/20 13:00 80 22 104/62 96 03/21/20 12:50 89 21 03/21/20 12:45 82 23 97/54 L 03/21/20 12:40 84 20 03/21/20 12:30 85 24 03/21/20 12:20 88 24 96 03/21/20 12:14 88 25 H 96 03/21/20 12:08 88 17 114/75 97 03/21/20 11:32 38.0 C H 101 H 20 92/52 L 100 PG Care Time/CCT Total # of Minutes Spent Total Time Spent with Patient: Total time spent is greater than 50% in coordination of care (as documented) at patient's floor/unit and/or counseling patient: Coding Level of Care Code 70595 Inpt Consult Level 4 Diagnoses Kidney stone on left side N20.0 Sepsis A41.9 Sepsis acute organ dysfunction status: without acute organ dysfunction Sepsis type: sepsis due to unspecified organism (1) Sepsis Sepsis acute organ dysfunction status: without acute organ dysfunction Sepsis type: sepsis due to unspecified organism Qualified Code(s): A41.9 - Sepsis, unspecified organism
[2020-03-21] MEDS ORDERED: POLYETHYLENE (MIRALAX) 17 GM PACK PO PRN ×2 (15:05→16:58)
[2020-03-21] MEDS ORDERED: ACETAMINOPHEN 325 MG TAB PO PRN (15:05)
[2020-03-21] MEDS ORDERED: ALUMINUM/MAGNESIUM SUSP 30 ML UDC PO PRN ×2 (15:05→16:58)
[2020-03-21] MEDS ORDERED: MAGNESIUM HYDROXIDE SUSP 30 ML UDC PO PRN ×2 (15:05→16:58)
[2020-03-21] MEDS ORDERED: ONDANSETRON INJ 2 MG/ML 2 ML VIAL IV PRN ×3 (15:05→16:58)
--- NOTE | 2020-03-21 15:09 | History & Physical Report ---
Date of Service March 21, 2020 Assessment & Plan (1) Pyelonephritis: 49 yo F with PMH multiple kidney stones, hx basal cell carcinoma, anxiety, diverticular disease, dyslipidemia who was admitted to the hospital for septic pyelonephritis. 1) Sepsis 2/2 Pyelonephritis - SIRS criteria: wbc 15K, T 38C, BP 92/60, - UA showing turbid urine, +LE, + Nitrite, +4 bacteria, >30 WBC, + bacteria, - CBC significant for leaukocytosis of 15k - blood cultures drawn, awaiting results - received 1 dose of cefepime and fluid boluses in the ED; placed on ceftriaxone for gram negative coverage - will trend CBC and monitor vitals 2) Nephrolithiasis with obstructing calculus - CT abd/pelv showing bilateral nephrolithiasis, with an obstructing 4x3x4 mm calculus of the distal left ureter, and colonic diverticulosis - Urology consulted; aware of situation and plan to take to OR for retrograde pyelogram and likely stent placement after destruction of obstructing stone - Zofran PRN for nausea - Tylenol for mild pain, Toradol for moderate pain 3) Anxiety - continue home citalopram 10 mg FEN/GI: NSS, NPO DVT ppx: lovenox Dispo: Med/surg Code Status: Full Code Present on Admission?: Yes (2) History of basal cell carcinoma: (3) Sepsis: History of Present Illness Patient is a 49 yo F with PMH multiple kidney stones, hx basal cell carcinoma, anxiety, diverticular disease, dyslipidemia presenting to the ED for nausea, vomiting and abdominal pain x 2 days. Abdominal pain was located in the left lower quadrant mainly yesterday, and subsided with tylenol at home. Nausea has been persistent for the past 2 days. She denies any episodes of vomiting. She also attests to having chills, fevers, muscle aches and night sweats over the past day. Denies any constipation, diarrhea, chest pain, dyspnea, palpitations. 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 No allergies to medications. Medications as below. Primary Care Provider: Paul Esteves MD Allergies Allergy/AdvReac Type Severity Reaction Status Date / Time adhesive Allergy Unknown ITCHING Verified 03/21/20 12:03 Home Medications Home Medications Medication Instructions Recorded Confirmed Type cholecalciferol (vitamin D3) 2,000 unit PO QAM 03/27/19 03/21/20 History [Vitamin D3] citalopram 10 mg tablet 10 mg PO DAILY #90 tab 12/18/19 03/21/20 Rx cyanocobalamin (vitamin B-12) 1,000 mcg PO DAILY 03/21/20 03/21/20 History [Vitamin B-12] potassium citrate 1 meq PO BID 03/21/20 03/21/20 History Past Med/Surg History Medical History Diverticular disease Hydroureteronephrosis Kidney stone Kidney stones Renal colic on left side (Resolved) Urinary tract infection CURRENTLY ON ABX Surgical History H/O gastric bypass History of abdominoplasty History of bilateral breast reduction surgery History of dilatation and curettage 11/08/2017. General with LMA #4. No issues. History of endoscopy History of lithotripsy X5 - Usually LMA #4 05/14/17: MAC #3, ETT #7.5, HiLo Oral, Grade 1 View History of wisdom tooth extraction Hx of LASIK B/L Status post Mohs surgery for basal cell carcinoma Right quaker Family History Denies family history of Ovarian cancer Prostate cancer Myocardial infarction Breast cancer Colorectal cancer Stroke Social History Preferred Language: [place] Communication Ability: Effective Visual Impairment: No Limitations Hearing Ability: Normal Powder Operator Required: No Beliefs That Will Affect Care: None marital status: Current Living Situation: Spouse current occupational status: employed Other Information That Helps Us Care for You: No Feels Safe at Home: Yes Safety Concerns: Feels Safe At This Time Smoking Status: Never smoker Second Hand Exposure: No ; Hx Alcohol Use: No Hx Substance Use: No Childhood Exposure to Second-Hand Smoke: Yes Dental Care, Regularly: Yes Physical Activity Frequency: Does not Exercise Review of Systems Constitutional: + fever, + chills, + sweats, + body aches and + malaise; no fatigue and no weakness Eyes: no blind spots Respiratory: no cough, no dyspnea and no pain on inspiration Cardiovascular: no chest pain, no dyspnea on exertion, no palpitations and no edema Gastrointestinal: + abdominal pain and + nausea; no vomiting, no cramping, no change in stools, no constipation and no diarrhea/loose stools Genitourinary: + flank pain; no dysuria and no hematuria Musculoskeletal: + myalgia; no muscle weakness Physical Exam Constitutional: well developed and well nourished Respiratory: normal respiratory effort, lungs clear to auscultation Auscultation: no crackles, no rales, no rhonchi and no wheezes Cardiovascular: RRR, no murmur, no edema Extremities: no calf tenderness and no pedal edema Gastrointestinal (Abdomen): Inspection/Auscultation: abdomen normal to inspection and normal bowel sounds; abdomen not distended Percussion/Palpation: abdomen soft; abdomen nontender and no guarding Musculoskeletal: no right CVA tenderness, mild left CVA tenderness to palpation Skin: no rashes Results & Data Results & Data ([facility]) Vital Signs (Past 12 Hours) Vital Signs Temp Pulse Resp BP Pulse Ox 03/21/20 15:01 77 23 96 03/21/20 15:00 81 20 97/62 L 97 03/21/20 14:50 77 21 97 03/21/20 14:40 79 21 96 03/21/20 14:31 80 21 96 03/21/20 14:30 80 20 103/57 L 97 03/21/20 14:20 74 21 97 03/21/20 14:10 80 20 97 03/21/20 14:00 37.4 C 81 21 108/67 98 03/21/20 13:50 85 24 98 03/21/20 13:40 83 21 98 03/21/20 13:31 80 22 97 03/21/20 13:30 84 18 112/65 97 03/21/20 13:10 81 23 03/21/20 13:01 79 22 03/21/20 13:00 80 22 104/62 96 03/21/20 12:50 89 21 03/21/20 12:45 82 23 97/54 L 03/21/20 12:40 84 20 03/21/20 12:30 85 24 03/21/20 12:20 88 24 96 03/21/20 12:14 88 25 H 96 06/11/20 12:08 88 17 114/75 97 03/21/20 11:32 38.0 C H 101 H 20 92/52 L 100 Laboratory Results WBC 19.31 K/uL (4.8-10.8) H 03/21/20 12:15 RBC 4.53 M/uL (4.2-5.4) 03/21/20 12:15 Hgb 14.1 g/dL (12.0-16.0) 03/21/20 12:15 Hct 42.6 % (37-47) 03/21/20 12:15 MCV 94.0 fL (80-100) 03/21/20 12:15 MCH 31.1 pg (25-34) 03/21/20 12:15 MCHC 33.1 g/dL (32-36) 03/21/20 12:15 RDW Std Deviation 45.0 fL (36.4-46.3) 03/21/20 12:15 RDW Coeff of Lazara 13.2 % (11.5-14.5) 03/21/20 12:15 Plt Count 228 K/uL (130-400) 03/21/20 12:15 MPV 11.1 fL (7.4-10.4) H 03/21/20 12:15 Immature Gran % (Auto) 0.5 % 03/21/20 12:15 Neut % (Auto) 83.7 % 03/21/20 12:15 Lymph % (Auto) 5.2 % 03/21/20 12:15 [place] % (Auto) 10.4 % 03/21/20 12:15 Eos % (Auto) 0.0 % 03/21/20 12:15 Baso % (Auto) 0.2 % 03/21/20 12:15 Immature Gran # (Auto) 0.10 K/uL (0.00-0.02) H 03/21/20 12:15 Neut # (Auto) 16.16 K/uL (1.4-6.5) H 03/21/20 12:15 Lymph # (Auto) 1.01 K/uL (1.2-3.4) L 03/21/20 12:15 [place] # (Auto) 2.01 K/uL (0.11-0.59) H 03/21/20 12:15 Eos # (Auto) 0.00 K/uL (0-0.5) 03/21/20 12:15 Baso # (Auto) 0.03 K/uL (0-0.2) 03/21/20 12:15 PT 11.8 Seconds (9.0-12.0) 03/21/20 12:15 INR 1.1 (0.9-1.1) 03/21/20 12:15 APTT 29.9 Seconds (21.0-31.0) 03/21/20 12:15 PTT Ratio 1.1 03/21/20 12:15 Sodium 138 mmol/L (136-145) 03/21/20 12:15 Potassium 3.9 mmol/L (3.5-5.1) 03/21/20 12:15 Chloride 104 mmol/L (98-107) 03/21/20 12:15 Carbon Dioxide 27 mmol/L (21-32) 03/21/20 12:15 Anion Gap 7.0 (3-11) 03/21/20 12:15 BUN 15 mg/dl (7-18) 03/21/20 12:15 Creatinine 0.81 mg/dl (0.6-1.2) 03/21/20 12:15 Est Cr Clr Drug Dosing 80.2 ml/min 03/21/20 12:15 Est GFR ( Amer) 97.5 03/21/20 12:15 Est GFR (Non-Af Amer) 84.1 03/21/20 12:15 BUN/Creatinine Ratio 18.2 (10-20) 03/21/20 12:15 Glucose 134 mg/dl (70-99) H 03/21/20 12:15 Lactate 1.2 mmol/L (0.4-2.0) 03/21/20 12:15 Calcium 9.2 mg/dl (8.5-10.1) 03/21/20 12:15 Magnesium 1.9 mg/dl (1.8-2.4) 03/21/20 12:15 Total Bilirubin 0.8 mg/dl (0.2-1) 03/21/20 12:15 AST 14 U/L (15-37) L 03/21/20 12:15 ALT 24 U/L (12-78) 03/21/20 12:15 Alkaline Phosphatase 92 U/L (45-117) 03/21/20 12:15 Troponin I 0.018 ng/ml (0-0.045) 03/21/20 12:15 Total Protein 7.4 gm/dl (6.4-8.2) 03/21/20 12:15 Albumin 3.5 gm/dl (3.4-5.0) 03/21/20 12:15 Globulin 3.9 gm/dl (2.5-4.0) 03/21/20 12:15 Albumin/Globulin Ratio 0.9 (0.9-2) 03/21/20 12:15 Procalcitonin 0.16 ng/ml (0-0.5) 03/21/20 12:15 Urine Color Dark Yellow 03/21/20 12:30 Urine Appearance Turbid (Clear) A 03/21/20 12:30 Urine pH 7.0 (4.5-7.5) 03/21/20 12:30 Ur Specific [place] 1.023 (1.000-1.030) 03/21/20 12:30 Urine Protein 1+ (Negative) H 03/21/20 12:30 Urine Glucose (UA) Negative (Negative) 03/21/20 12:30 Urine Ketones 1+ (Negative) H 03/21/20 12:30 Urine Blood 1+ (Negative) H 03/21/20 12:30 Urine Nitrite Positive (Negative) A 03/21/20 12:30 Urine Bilirubin Negative (Negative) 03/21/20 12:30 Urine Urobilinogen Negative (Negative) 03/21/20 12:30 Ur Leukocyte Esterase 3+ (Negative) H 03/21/20 12:30 Urine WBC (Auto) >30 /hpf (0-5) H 03/21/20 12:30 Urine RBC (Auto) 10-30 /hpf (0-4) H 03/21/20 12:30 U Hyaline Cast (Auto) 1-5 /lpf (0-5) 03/21/20 12:30 U Epithel Cells (Auto) 10-20 /lpf (0-5) H 03/21/20 12:30 Urine Bacteria (Auto) 4+ (Negative) H 03/21/20 12:30 POC Ur Test NEG (NEG) 03/21/20 12:30 Code Status & VTE Plan VTE Prophylaxis Plan VTE Prophylaxis will be ordered: Yes Supervising Physician Co-Signing Physician Notes I personally examined the patient and verified all gerber points of history and exam, discussed case, and agree with decision making with Dr Schmid seen post cysto. tired but feeling OK. no new complaints vitals noted nad heent nc at mmm breathing unlabored no accessory muscles good effort skin no rashes no pallor or icterus sepsis, pyelonephritis, ureteral stone - drainage affected by cysto - should help significantly. abx, follow cx, supportive care otherwise as above Resident Activity Tracking Resident Involvement: Resident Care Provided Care Provided: Adult Hospital Medicine (1) Sepsis Sepsis acute organ dysfunction status: without acute organ dysfunction Sepsis type: sepsis due to unspecified organism Qualified Code(s): A41.9 - Sepsis, unspecified organism
--- NOTE | 2020-03-21 15:27 | Anesthesiology Consultation ---
Date of Service March 21, 2020 Assessment & Plan Chart Review Chart Review: Acceptable Risk for Surgery Consults Requested none ASA ASA2 Proposed Anesthesia Anesthesia Type: MAC Risk / Benefits Reviewed With: PT / POA / Parent / Guardian, Accepts Plan and Informed Consent Obtained History Surgery Operation Date: 03/21/20 12:35 Proposed Procedures p Cystoscopy, Left Stent Insertion - Nixon Quintana MD Height/Weight Height: 5 ft 3 in Weight: 76 kg Allergies Allergy/AdvReac Type Severity Reaction Status Date / Time adhesive Allergy Unknown ITCHING Verified 03/21/20 12:03 Medications Home Medications Medication Instructions Recorded Confirmed Last Taken cholecalciferol (vitamin D3) 2,000 unit PO QAM 03/27/19 03/21/20 03/20/20 [Vitamin D3] citalopram 10 mg tablet 10 mg PO DAILY #90 tab 12/18/19 03/21/20 03/20/20 cyanocobalamin (vitamin B-12) 1,000 mcg PO DAILY 03/21/20 03/21/20 03/20/20 [Vitamin B-12] potassium citrate 1 meq PO BID 03/21/20 03/21/20 03/20/20 Active Medications Generic Name Dose Route Start Last Admin Trade Name Freq PRN Reason Stop Dose Admin Ioversol 93 ml 03/21/20 13:27 03/21/20 13:28 Optiray 320 100ml IV 03/25/20 13:26 93 ml ONCE PRN Administration Interaction Checking NPO Date Last Intake of Fluids: 03/21/20 Time Last Intake of Fluids: 11:00 Date Last Intake of Solids: 03/20/20 Time Last Intake of Solids: 20:00 Past Medical History Medical History Diverticular disease Hydroureteronephrosis Kidney stone Kidney stones Renal colic on left side (Resolved) Urinary tract infection CURRENTLY ON ABX Exercise / Class Metabolic Activity II 4-5 Yardwork/Stairs/Walk up hill Past Family History Family History Denies family history of Ovarian cancer Prostate cancer Myocardial infarction Breast cancer Colorectal cancer Stroke Past Surgical History Surgical History H/O gastric bypass History of abdominoplasty History of bilateral breast reduction surgery History of dilatation and curettage 11/08/2017. General with LMA #4. No issues. History of endoscopy History of lithotripsy X5 - Usually LMA #4 05/14/17: MAC #3, ETT #7.5, HiLo Oral, Grade 1 View History of wisdom tooth extraction Hx of LASIK B/L Status post Mohs surgery for basal cell carcinoma Right nondenominational Past Anesthesia History No Hx of Anesthesia Complications and No Family Hx of Anesthesia Complications History of PONV No Hx of PONV and No Hx of Motion Sickness Social History Smoking Status: Never smoker Hx Alcohol Use: No (NONE IN LAST MONTH, AVERAGE PREVIOUSLY: 1 BEER A DAY) Alcohol type: beer alcohol intake frequency: 0-2 drinks per day Hx Substance Use: No substance use type: does not use Physical Exam Vital Signs Last Vital Signs Temp 99.3 F 03/21/20 14:00 Pulse 77 03/21/20 15:01 Resp 23 03/21/20 15:01 BP 97/62 L 03/21/20 15:00 Pulse Ox 96 03/21/20 15:01 ENMT Mouth: no dentition abnormality Thyromental Distance: > or= 3.5 Finger Breadths Mallampati Class: II Neck normal visual inspection Respiratory normal respiratory effort Auscultation: lungs clear to auscultation bilaterally Cardiovascular Rate/Rhythm: regular rate and regular rhythm Testing Laboratory Results 03/21/20 12:15 03/21/20 12:15 PT 11.8 Seconds (9.0-12.0) 03/21/20 12:15 INR 1.1 (0.9-1.1) 03/21/20 12:15 APTT 29.9 Seconds (21.0-31.0) 03/21/20 12:15 Urine Color Dark Yellow 03/21/20 12:30 Urine Appearance Turbid (Clear) A 03/21/20 12:30 Urine pH 7.0 (4.5-7.5) 03/21/20 12:30 Ur Specific [place] 1.023 (1.000-1.030) 03/21/20 12:30 Urine Protein 1+ (Negative) H 03/21/20 12:30 Urine Glucose (UA) Negative (Negative) 03/21/20 12:30 Urine Ketones 1+ (Negative) H 03/21/20 12:30 Urine Nitrite Positive (Negative) A 03/21/20 12:30 Ur Leukocyte Esterase 3+ (Negative) H 03/21/20 12:30 Urine WBC (Auto) >30 /hpf (0-5) H 03/21/20 12:30 Urine RBC (Auto) 10-30 /hpf (0-4) H 03/21/20 12:30 U Hyaline Cast (Auto) 1-5 /lpf (0-5) 03/21/20 12:30 U Epithel Cells (Auto) 10-20 /lpf (0-5) H 03/21/20 12:30 Urine Bacteria (Auto) 4+ (Negative) H 03/21/20 12:30 03/21/20 12:30 POC Ur Test NEG
[2020-03-21] MEDS ORDERED: fentaNYL citrate 100 MCG/2 ML VIAL IV PRN (15:29)
[2020-03-21] MEDS ORDERED: ePHEDrine sulfate 50 MG/ML AMP IV PRN (15:29)
[2020-03-21] MEDS ORDERED: ATROPINE SULFATE 0.1 MG/ML 10ML SYR IV PRN (15:29)
[2020-03-21] MEDS ORDERED: PROPOFOL IV EMULSION 10 MG/ML 20 ML VIAL IV ONE (15:34)
[2020-03-21] MEDS ORDERED: MIDAZOLAM HCL 1 MG/ML 2ML VIAL ONE (15:34)
[2020-03-21] MEDS ORDERED: LIDOCAINE HCL 2% 2 ML VIAL/AMP(20MG/ML) INFIL ONE (15:34)
[2020-03-21] MEDS ORDERED: fentaNYL citrate 100 MCG/2 ML VIAL ONE (15:34)
--- NOTE | 2020-03-21 16:15 | Operative Report ---
PG Post Operative Report Pre & Post Diagnosis Operation Date: 03/21/20 12:35 Pre-Op Diagnosis: left nephrolithiasis Post-Op Diagnosis: left nephrolithiasis I identified the patient and participated in the time-out.: Yes Procedure Operation Date: 03/21/20 12:35 Actual Procedures p Cystoscopy, Left Ureteral Stent Insertion(Not Applicable) - Nixon Quintana MD Surgeon Oliver Quintana MD Mixing Tumbler Operator none Estimated Blood Loss 0 Findings Consistent with Post-Op Diagnosis Specimens none Description of Procedure The patient was identified in the preoperative holding area, appropriate informed consents were reviewed and completed and the patient was transferred to the operative suite. Upon arrival, appropriate antibiotics and anesthesia were administered and the patient was placed in dorsal lithotomy position and prepped and draped in sterile fashion. To begin the case a 22 Greek cystoscope was passed per urethra. Inspection revealed healthy-appearing mucosa with ureteral orifices in orthotopic position. There was debris consistent with infection within the bladder which was irrigated out. I then cannulated the left UO with a sensor wire which was advanced to the kidney without difficulty. Of note, she still has a significant amount of contrast within the left kidney secondary to her prior contrast- enhanced CT and delayed nephrogram/obstruction. This confirmed a renal position of the wire and I placed a 6 Greek by 24 cm double-J ureteral stent seeing a good curl in the kidney as well as the bladder. Bladder was emptied and the case concluded, she was reversed of anesthesia and taken to the recovery room in stable condition. I attest to the content of the Intraoperative Record and any orders documented therein. Any exceptions are noted below.
--- NOTE | 2020-03-21 16:32 | Fluoroscopy Report ---
FL retrograde includes kub CLINICAL HISTORY: CYSTO COMPARISON STUDY: CT scan performed the same day FLUOROSCOPY TIME: 5 seconds. NUMBER OF FLUOROSCOPIC IMAGES: 1 FINDINGS: A single intraoperative fluoroscopic spot images provided for interpretation. There is cont rast opacification of the left renal pelvis. No filling defects are visualized. The proximal portion of a left-sided nephroureteral stent is visualized. The stent is positioned near the ureteropelvic ju nction. IMPRESSION: Intraprocedural fluoroscopic spot image demonstrating the proximal pigtail of a left-bozena ed nephroureteral stent. ACT 112: Negative or not required by law. Electronically signed by: Braden Plascencia M.D. 03/21/2020 4:30 PM
--- NOTE | 2020-03-21 16:32 | Anesthesiology Progress Note ---
Date of Service March 21, 2020 Anesthesia Post Procedure Vital Signs Vital Signs: Temp Pulse Pulse Pulse Resp BP BP 03/21/20 16:25 82 15 92/56 L 03/21/20 16:17 97.2 F L 79 16 95/55 L 03/21/20 15:34 98.8 F 87 16 03/21/20 15:01 77 23 03/21/20 15:00 81 20 97/62 L 03/21/20 14:50 77 21 03/21/20 14:40 79 21 03/21/20 14:31 80 21 03/21/20 14:30 80 20 103/57 L 03/21/20 14:20 74 21 03/21/20 14:10 80 20 03/21/20 14:00 99.3 F 81 21 108/67 03/21/20 13:50 85 24 03/21/20 13:40 83 21 03/21/20 13:31 80 22 03/21/20 13:30 84 18 112/65 03/21/20 13:10 81 23 03/21/20 13:01 79 22 03/21/20 13:00 80 22 104/62 03/21/20 12:50 89 21 03/21/20 12:45 82 23 97/54 L 03/21/20 12:40 84 20 03/21/20 12:30 85 24 03/21/20 12:20 88 24 03/21/20 12:14 88 25 H 03/21/20 12:08 88 17 114/75 03/21/20 11:32 100.4 F H 101 H 20 92/52 L BP Pulse Ox 03/21/20 16:25 96 03/21/20 16:17 99 03/21/20 15:34 97/62 L 97 03/21/20 15:01 96 03/21/20 15:00 97 03/21/20 14:50 97 03/21/20 14:40 96 03/21/20 14:31 96 03/21/20 14:30 97 03/21/20 14:20 97 03/21/20 14:10 97 03/21/20 14:00 98 03/21/20 13:50 98 03/21/20 13:40 98 03/21/20 13:31 97 03/21/20 13:30 97 03/21/20 13:10 03/21/20 13:01 03/21/20 13:00 96 03/21/20 12:50 03/21/20 12:45 03/21/20 12:40 03/21/20 12:30 03/21/20 12:20 96 03/21/20 12:14 96 03/21/20 12:08 97 03/21/20 11:32 100 Transfer of Care Handoff Completed per policy Notes Mental Status: alert / awake / arousable and participated in evaluation Patient Amnestic to Procedure: Yes Nausea / Vomiting: adequately controlled Pain: adequately controlled Airway Patency, RR, SpO2: stable & adequate BP & HR: stable & adequate Hydration State: stable & adequate Anesthetic Complications: no major complications apparent and Pt Satisfied with anesthetic care
[2020-03-21] MEDS ORDERED: KETOROLAC TROMETHAMINE 15 MG/ML VIAL IV PRN (16:58)
[2020-03-21] MEDS: SODIUM CHLORIDE 0.9% 1000ML 1,000 ML IV SCH (17:59)
[2020-03-21] MEDS ORDERED: ENOXAPARIN INJ 40 MG/0.4 ML SYR SQ SCH (18:00)
[2020-03-21] MEDS: ACETAMINOPHEN 325 MG TAB PO PRN (18:13)
[2020-03-21] MEDS: ENOXAPARIN INJ 40 MG/0.4 ML SYR SQ SCH (18:29)
[2020-03-21] MEDS: cefTRIAXone SODIUM 1,000 MG in DEXTROSE 5% 50 ML IV SCH (18:35)
--- NOTE | 2020-03-21 19:47 | Billing Data ---
Date of Service March 21, 2020 Coding Level of Care Code 13726 OBS Care - Level 3
--- NOTE | 2020-03-21 23:29 | Electrocardiogram Report ---
Test Reason : Blood Pressure : / mmHG Vent. Rate : 086 BPM Atrial Rate : 086 BPM P-R Int : 130 ms QRS Dur : 084 ms QT Int : 368 ms P-R-T Axes : 009 -01 019 degrees QTc Int : 440 ms Normal sinus rhythm Low voltage QRS Nonspecific T wave abnormality Poor R wave progression, consider anterior AK vs. lead placement vs. LVH Abnormal ECG When compared with ECG of 23-NOV-2018 11:45, Nonspecific T wave abnormality now evident in Anterior leads Confirmed by Sj Landers ([id number]) on 03/21/2020 11:29:49 PM Referred By: Confirmed By:Sj Landers
[2020-03-22] MEDS: SODIUM CHLORIDE 0.9% 1000ML 1,000 ML IV SCH ×4 (01:01→18:19)
[2020-03-22 05:34] LABS: Basophils # (auto) 0.02 K/uL (0-0.2); Basophils % (auto) 0.1 %; Hematocrit (blood only) 36.8 % (37-47); Immature Granulocytes # (auto) 0.03 K/uL (0.00-0.02); Immature Granulocytes % (auto) 0.2 %; Lymphocytes # (auto) 1.08 K/uL (1.2-3.4); Lymphocytes % (auto) 7.2 %; Mean Corpuscular Hemoglobin 30.8 pg (25-34); Mean Corpuscular Hgb Conc 32.6 g/dL (32-36); Mean Corpuscular Volume 94.6 fL (80-100); Mean Platelet Volume 11.1 fL (7.4-10.4); Monocytes # (auto) 1.11 K/uL (0.11-0.59); Monocytes % (auto) 7.4 %; Neutrophils # (auto) 12.73 K/uL (1.4-6.5); Neutrophils % (auto) 85.1 %; Platelet Count 179 K/uL (130-400); RDW Coefficient of Variation 13.5 % (11.5-14.5); RDW Standard Deviation 46.6 fL (36.4-46.3); Red Blood Count 3.89 M/uL (4.2-5.4); White Blood Count 14.97 K/uL (4.8-10.8)
[2020-03-22] MEDS ORDERED: ENOXAPARIN INJ 40 MG/0.4 ML SYR SQ SCH (06:00)
[2020-03-22] MEDS: ACETAMINOPHEN 325 MG TAB PO PRN ×4 (06:10→22:05)
[2020-03-22 06:32] LABS: Albumin Globulin Ratio 0.8 (0.9-2); Albumin Level 2.5 gm/dl (3.4-5.0); BUN Creatinine Ratio 19.2 (10-20); Bilirubin,Total 0.4 mg/dl (0.2-1); Calcium 8.3 mg/dl (8.5-10.1); Creatinine Clr Calc Pharmacy 108.3 ml/min; Est GFR (African American) 122.3; Est GFR (Non-African American) 105.5; Globulin 3.3 gm/dl (2.5-4.0); Potassium 4.1 mmol/L (3.5-5.1); Total Protein 5.8 gm/dl (6.4-8.2)
[2020-03-22] MEDS: CITALOPRAM 20 MG TAB PO SCH (08:55)
--- NOTE | 2020-03-22 10:11 | Hospitalist Progress Note ---
Date of Service March 22, 2020 Assessment & Plan (1) Pyelonephritis: 49 yo F with PMH multiple kidney stones, hx basal cell carcinoma, anxiety, diverticular disease, dyslipidemia who was admitted to the hospital for septic pyelonephritis. 1) Sepsis 2/2 Pyelonephritis - SIRS criteria: wbc 15K, T 39.1C, BP 92/60, - UA showing turbid urine, +LE, + Nitrite, +4 bacteria, >30 WBC, + bacteria, - CBC significant for leaukocytosis of 15k - Gram negative anaerobe blood culture growth - received 1 dose of cefepime and fluid boluses in the ED; placed on ceftriaxone for gram negative coverage - will trend CBC and monitor vitals 2) Nephrolithiasis with obstructing calculus - CT abd/pelv showing bilateral nephrolithiasis, with an obstructing 4x3x4 mm calculus of the distal left ureter, and colonic diverticulosis - Urology consulted; aware of situation and plan to take to OR for retrograde pyelogram and likely stent placement after destruction of obstructing stone - Zofran PRN for nausea - Tylenol for mild pain, Toradol for moderate pain 3) Anxiety - continue home citalopram 10 mg FEN/GI: NSS at 1.5x maintenance, regular diet DVT ppx: lovenox Dispo: Med/surg Code Status: Full Code (2) History of basal cell carcinoma: (3) Sepsis: Admission and Anticipated Discharge Date Admission Date: March 21, 2020 Supervising Physician Co-Signing Physician Notes I personally examined the patient and verified all gerber points of history and exam, discussed case, and agree with decision making with Dr Schmid feeling better. as i explain expected plan she notes that she was really hoping to get out of hospital tomorrow because [place]'re [place] to [place] for [place] beach. vitals noted nad heent nc at mmm breathing unlabored no accessory muscles good effort skin no rashes no pallor or icterus sepsis, pyelonephritis, ureteral stone and subsequent bacteremia- drainage affected by cysto, ongoing abx coverage with rocephin. await final ID&S on cultures. otherwise as above Subjective Feeling generally fatigued and having muscle weakness this morning. States that she has also felt feverish with the temp elevation this morning. No chills or night sweats. Nausea and abdominal pain have improved. New burning and pain with urination after cystoscopy. No increased frequency or stop/start flow. Review of Systems Constitutional: + fever, + chills, + body aches and + fatigue; no sweats Respiratory: no cough and no dyspnea Cardiovascular: no chest pain, no palpitations and no edema Gastrointestinal: no abdominal pain, no early satiety, no nausea and no vomiting Genitourinary: + dysuria and + urinary hesitancy; no difficulty urinating, no urinary frequency, no urinary urgency, no urinary incontinence, no post-void dribbling and no hematuria Musculoskeletal: no back pain Physical Exam Constitutional: well developed, well nourished and + well hydrated; no acute distress Respiratory: normal respiratory effort, lungs clear to auscultation Auscultation: no crackles, no rales, no rhonchi and no wheezes Cardiovascular: RRR, no murmur, no edema Extremities: no calf tenderness and no pedal edema Gastrointestinal (Abdomen): Inspection/Auscultation: abdomen normal to inspection and normal bowel sounds; abdomen not distended Percussion/Palpation: abdomen soft; abdomen nontender and no guarding Musculoskeletal: No CVA tenderness bilaterally Skin: no rashes Results & Data Results [facility]) Vital Signs (Past 12 Hours) Vital Signs Temp Pulse Resp BP Pulse Ox 03/22/20 07:32 37 C 83 16 92/59 L 93 03/22/20 06:07 39.1 C H 03/22/20 02:58 37.5 C 100 H 16 103/61 90 03/21/20 22:53 37.6 C H 91 H 16 95/57 L 96 Laboratory Results WBC 14.97 K/uL (4.8-10.8) H 03/22/20 05:13 RBC 3.89 M/uL (4.2-5.4) L 03/22/20 05:13 Hgb 12.0 g/dL (12.0-16.0) 03/22/20 05:13 Hct 36.8 % (37-47) L 03/22/20 05:13 MCV 94.6 fL (80-100) 03/22/20 05:13 MCH 30.8 pg (25-34) 03/22/20 05:13 MCHC 32.6 g/dL (32-36) 03/22/20 05:13 RDW Std Deviation 46.6 fL (36.4-46.3) H 03/22/20 05:13 RDW Coeff of [place] 13.5 % (11.5-14.5) 03/22/20 05:13 Plt Count 179 K/uL (130-400) 03/22/20 05:13 MPV 11.1 fL (7.4-10.4) H 03/22/20 05:13 Immature Gran % (Auto) 0.2 % 03/22/20 05:13 Neut % (Auto) 85.1 % 03/22/20 05:13 Lymph % (Auto) 7.2 % 03/22/20 05:13 [place] % (Auto) 7.4 % 03/22/20 05:13 Eos % (Auto) 0.0 % 03/22/20 05:13 Baso % (Auto) 0.1 % 03/22/20 05:13 Immature Gran # (Auto) 0.03 K/uL (0.00-0.02) H 03/22/20 05:13 Neut # (Auto) 12.73 K/uL (1.4-6.5) H 03/22/20 05:13 Lymph # (Auto) 1.08 K/uL (1.2-3.4) L 03/22/20 05:13 [place] # (Auto) 1.11 K/uL (0.11-0.59) H 03/22/20 05:13 Eos # (Auto) 0.00 K/uL (0-0.5) 03/22/20 05:13 Baso # (Auto) 0.02 K/uL (0-0.2) 03/22/20 05:13 PT 11.8 Seconds (9.0-12.0) 03/21/20 12:15 INR 1.1 (0.9-1.1) 03/21/20 12:15 APTT 29.9 Seconds (21.0-31.0) 03/21/20 12:15 PTT Ratio 1.1 03/21/20 12:15 Sodium 141 mmol/L (136-145) 03/22/20 05:13 Potassium 4.1 mmol/L (3.5-5.1) 03/22/20 05:13 Chloride 111 mmol/L (98-107) H 03/22/20 05:13 Carbon Dioxide 25 mmol/L (21-32) 03/22/20 05:13 Anion Gap 5.0 (3-11) 03/22/20 05:13 BUN 11 mg/dl (7-18) 03/22/20 05:13 Creatinine 0.60 mg/dl (0.6-1.2) 03/22/20 05:13 Est Cr Clr Drug Dosing 108.3 ml/min 03/22/20 05:13 Est GFR ( Amer) 122.3 03/22/20 05:13 Est GFR (Non-Af Amer) 105.5 03/22/20 05:13 BUN/Creatinine Ratio 19.2 (10-20) 03/22/20 05:13 Glucose 111 mg/dl (70-99) H 03/22/20 05:13 Lactate 1.2 mmol/L (0.4-2.0) 03/21/20 12:15 Calcium 8.3 mg/dl (8.5-10.1) L 03/22/20 05:13 Magnesium 1.9 mg/dl (1.8-2.4) 03/21/20 12:15 Total Bilirubin 0.4 mg/dl (0.2-1) 03/22/20 05:13 AST 17 U/L (15-37) 03/22/20 05:13 ALT 21 U/L (12-78) 03/22/20 05:13 Alkaline Phosphatase 71 U/L (45-117) 03/22/20 05:13 Troponin I 0.018 ng/ml (0-0.045) 03/21/20 12:15 Total Protein 5.8 gm/dl (6.4-8.2) L D 03/22/20 05:13 Albumin 2.5 gm/dl (3.4-5.0) L 03/22/20 05:13 Globulin 3.3 gm/dl (2.5-4.0) 03/22/20 05:13 Albumin/Globulin Ratio 0.8 (0.9-2) L 03/22/20 05:13 Procalcitonin 0.16 ng/ml (0-0.5) 03/21/20 12:15 Specimen Hemolysis 03/22/20 05:13 Urine Color Dark Yellow 03/21/20 12:30 Urine Appearance Turbid (Clear) A 03/21/20 12:30 Urine pH 7.0 (4.5-7.5) 03/21/20 12:30 Ur Specific [place] 1.023 (1.000-1.030) 03/21/20 12:30 Urine Protein 1+ (Negative) H 03/21/20 12:30 Urine Glucose (UA) Negative (Negative) 03/21/20 12:30 Urine Ketones 1+ (Negative) H 03/21/20 12:30 Urine Blood 1+ (Negative) H 03/21/20 12:30 Urine Nitrite Positive (Negative) A 03/21/20 12:30 Urine Bilirubin Negative (Negative) 03/21/20 12:30 Urine Urobilinogen Negative (Negative) 03/21/20 12:30 Ur Leukocyte Esterase 3+ (Negative) H 03/21/20 12:30 Urine WBC (Auto) >30 /hpf (0-5) H 03/21/20 12:30 Urine RBC (Auto) 10-30 /hpf (0-4) H 03/21/20 12:30 U Hyaline Cast (Auto) 1-5 /lpf (0-5) 03/21/20 12:30 U Epithel Cells (Auto) 10-20 /lpf (0-5) H 03/21/20 12:30 Urine Bacteria (Auto) 4+ (Negative) H 03/21/20 12:30 POC Ur Test NEG (NEG) 03/21/20 12:30 Resident Activity Tracking Resident Involvement: Resident Care Provided Care Provided: Adult Hospital Medicine (1) Sepsis Sepsis acute organ dysfunction status: without acute organ dysfunction Sepsis type: sepsis due to unspecified organism Qualified Code(s): A41.9 - Sepsis, unspecified organism
[2020-03-22] MEDS: PHENAZOPYRIDINE HCL 100 MG TAB PO SCH ×2 (13:05→21:26)
[2020-03-22] MEDS ORDERED: IBUPROFEN 600 MG TAB PO PRN (17:03)
[2020-03-22] MEDS: ENOXAPARIN INJ 40 MG/0.4 ML SYR SQ SCH (17:17)
[2020-03-22] MEDS: cefTRIAXone SODIUM 1,000 MG in DEXTROSE 5% 50 ML IV SCH (17:18)
--- NOTE | 2020-03-22 17:32 | Billing Data ---
Date of Service March 22, 2020 Coding Level of Care Code 78685 Subseq Hosp Care Lvl 3
[2020-03-23] MEDS: SODIUM CHLORIDE 0.9% 1000ML 1,000 ML IV SCH ×3 (00:18→12:15)
[2020-03-23 08:15] LABS: Basophils # (auto) 0.01 K/uL (0-0.2); Basophils % (auto) 0.1 %; Eosinophils # (auto) 0.01 K/uL (0-0.5); Eosinophils % (auto) 0.1 %; Hemoglobin 11.6 g/dL (12.0-16.0); Immature Granulocytes # (auto) 0.02 K/uL (0.00-0.02); Immature Granulocytes % (auto) 0.3 %; Lymphocytes % (auto) 20.8 %; Mean Corpuscular Hemoglobin 31.1 pg (25-34); Mean Corpuscular Hgb Conc 32.2 g/dL (32-36); Mean Corpuscular Volume 96.5 fL (80-100); Mean Platelet Volume 11.4 fL (7.4-10.4); Monocytes # (auto) 0.44 K/uL (0.11-0.59); Monocytes % (auto) 6.1 %; Neutrophils # (auto) 5.23 K/uL (1.4-6.5); Neutrophils % (auto) 72.6 %; Platelet Count 152 K/uL (130-400); RDW Coefficient of Variation 13.7 % (11.5-14.5); RDW Standard Deviation 48.7 fL (36.4-46.3); Red Blood Count 3.73 M/uL (4.2-5.4); White Blood Count 7.21 K/uL (4.8-10.8)
[2020-03-23] MEDS: ACETAMINOPHEN 325 MG TAB PO PRN ×2 (08:16→15:09)
[2020-03-23] MEDS: CITALOPRAM 20 MG TAB PO SCH (08:16)
--- NOTE | 2020-03-23 13:13 | Hospitalist Progress Note ---
Date of Service March 23, 2020 Assessment & Plan (1) Pyelonephritis: 49 yoF with PMH of multiple kidney stones, basal cell carcinoma, anxiety, diverticular disease, dyslipidemia admitted for sepsis in the setting of pyelonephritis. 1) Bacteremia 2/2 Pyelonephritis - Blood culture x 1 grew E. Coli pansensitive - Urine culture also growing E. coli pansensitive - Initial CBC significant for WBC of 15k - received 1 dose of cefepime and fluid boluses in the ED; placed on ceftriaxone for gram negative coverage - Remains admitted to ensure afebrile for 12-24hrs prior to discharge on PO abx: Cefdinir 300mg BID to complete - Hemodynamically stable - Continue to monitor 2) Nephrolithiasis with obstructing calculus - CT abd/pelvic: bilateral nephrolithiasis, with an obstructing 4x3x4 mm calculus of the distal left ureter, and colonic diverticulosis - Urology: performed cystoscopy and placed L ureteral stent on 03/22 - Zofran PRN for nausea - Tylenol for mild pain, Toradol for moderate pain 3) Anxiety - continue home citalopram 10 mg FEN/GI:regular diet DVT ppx: lovenox Dispo: Med/surg Code Status: Full Code (2) History of basal cell carcinoma: (3) Sepsis: Admission and Anticipated Discharge Date Admission Date: March 22, 2020 Supervising Physician Co-Signing Physician Notes I personally examined the patient and verified all gerber points of history and exam, discussed case, and agree with decision making with Dr Valdez. feeling good -initially was a little inclined to want to leave today regardless of medical advice but after dr valdez reiterated her situation she was jonathan to stay vitals noted nad heent nc at mmm breathing unlabored no accessory muscles good effort skin no rashes no pallor or icterus sepsis, pyelonephritis, ureteral stone and subsequent bacteremia- drainage affected by cysto, ongoing abx coverage with rocephin - still febrile so doesnt appear safe for home yet, but with cultures once she's 24hrs afebrile would anticipate home on cefdinir otherwise as above Subjective ON: patient continued to be febrile Max temp 39.2. This AM pt reports persistent on and off fever and chills. Denied any abdominal pain, flank pain, nausea, vomiting, dizziness, cp, sob, headache, dysuria, hematuria. Has not noted any stones passing. Review of Systems Review of Systems: As per HPI Physical Exam Physical Exam: General: In NAD Neuro: A&O x 4 Pulm: CTAB equal breath sounds bilaterally CV: RRR, no m/r/g Abdomen:+BS, no TTP in all quadrants, non-distended LE: no LE edema, no calf TTP Results & Data Results & Data ([facility]) Vital Signs (Past 12 Hours) Vital Signs Temp Pulse Resp BP Pulse Ox 03/23/20 10:20 37.2 C 03/23/20 07:56 37.8 C H 66 16 108/63 98 03/23/20 03:30 37.2 C Resident Activity Tracking Resident Involvement: Resident Care Provided Care Provided: Adult Hospital Medicine (1) Sepsis Sepsis acute organ dysfunction status: without acute organ dysfunction Sepsis type: sepsis due to unspecified organism Qualified Code(s): A41.9 - Sepsis, unspecified organism
--- NOTE | 2020-03-23 17:33 | Billing Data ---
Date of Service March 23, 2020 Coding Level of Care Code 84853 Subseq Hosp Care Lvl 3
[2020-03-23] MEDS: cefTRIAXone SODIUM 1,000 MG in DEXTROSE 5% 50 ML IV SCH (18:19)
[2020-03-23] MEDS: ENOXAPARIN INJ 40 MG/0.4 ML SYR SQ SCH (18:19)
[2020-03-24] MEDS: ACETAMINOPHEN 325 MG TAB PO PRN (00:51)
[2020-03-24 04:41] LABS: Basophils # (auto) 0.02 K/uL (0-0.2); Basophils % (auto) 0.2 %; Eosinophils # (auto) 0.04 K/uL (0-0.5); Eosinophils % (auto) 0.5 %; Hematocrit (blood only) 37.5 % (37-47); Hemoglobin 12.3 g/dL (12.0-16.0); Immature Granulocytes # (auto) 0.01 K/uL (0.00-0.02); Immature Granulocytes % (auto) 0.1 %; Lymphocytes # (auto) 2.97 K/uL (1.2-3.4); Lymphocytes % (auto) 34.2 %; Mean Corpuscular Hemoglobin 31.1 pg (25-34); Mean Corpuscular Hgb Conc 32.8 g/dL (32-36); Mean Corpuscular Volume 94.7 fL (80-100); Mean Platelet Volume 11.2 fL (7.4-10.4); Monocytes # (auto) 0.62 K/uL (0.11-0.59); Monocytes % (auto) 7.1 %; Neutrophils # (auto) 5.02 K/uL (1.4-6.5); Neutrophils % (auto) 57.9 %; Platelet Count 193 K/uL (130-400); RDW Coefficient of Variation 13.5 % (11.5-14.5); RDW Standard Deviation 46.9 fL (36.4-46.3); Red Blood Count 3.96 M/uL (4.2-5.4); White Blood Count 8.68 K/uL (4.8-10.8)
[2020-03-24 05:02] LABS: Creatinine Clr Calc Pharmacy 128.5 ml/min; Est GFR (Non-African American) 111.3
[2020-03-24] MEDS: CITALOPRAM 20 MG TAB PO SCH (08:44)
[2020-03-24] MEDS ORDERED: Nursing to Pharmacy Communication SCH (09:00)
[2020-03-24] MEDS: cefTRIAXone SODIUM 1,000 MG in DEXTROSE 5% 50 ML IV SCH (09:14)
--- NOTE | 2020-03-24 11:26 | Discharge Summary ---
Date of Service March 24, 2020 Admission HPI Per Admitting Provider Patient is a 49 yo F with PMH multiple kidney stones, hx basal cell carcinoma, anxiety, diverticular disease, dyslipidemia presenting to the ED for nausea, vomiting and abdominal pain x 2 days. Abdominal pain was located in the left lower quadrant mainly yesterday, and subsided with tylenol at home. Nausea has been persistent for the past 2 days. She denies any episodes of vomiting. She also attests to having chills, fevers, muscle aches and night sweats over the past day. Denies any constipation, diarrhea, chest pain, dyspnea, palpitations. 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 No allergies to medications. Medications as below. Primary Care Provider: Paul Esteves MD Admission Exam Per Admitting Provider Constitutional: well developed and well nourished Respiratory: normal respiratory effort, lungs clear to auscultation Auscultation: no crackles, no rales, no rhonchi and no wheezes Cardiovascular: RRR, no murmur, no edema Extremities: no calf tenderness and no pedal edema Gastrointestinal (Abdomen): Inspection/Auscultation: abdomen normal to inspecti on and normal bowel sounds; abdomen not distended Percussion/Palpation: abdomen soft; abdomen nontender and no guarding Musculoskeletal: no right CVA tenderness, mild left CVA tenderness to palpation Skin: no rashes Principal Diagnosis Bacteremia 2/2 pyelonephritis Discharge Exam General: In NAD Neuro: A&O x 4 Pulm: CTAB equal breath sounds bilaterally CV: RRR, no m/r/g Abdomen:+BS, no TTP in all quadrants, non-distended LE: no LE edema, no calf TTP Discharge Data Allergies Allergy/AdvReac Type Severity Reaction Status Date / Time adhesive Allergy Unknown ITCHING Verified 03/21/20 12:03 Consultations 03/21/20 14:23 ED Decision to Admit Stat Procedures Performed Operation Date: 03/21/20 12:35 Actual Procedures p Left Ureteral Stent Insertion(Not Applicable) - Nixon Quintana MD s Cystoscopy(Not Applicable) - Nixon Quintana MD Ordered Studies 03/21/20 12:08 CT abd pelvis IV con only Stat 03/21/20 14:51 FL retrograde includes kub Routine Hospital Course (1) Pyelonephritis: 49 yoF with PMH of multiple kidney stones, basal cell carcinoma, anxiety, diverticular disease, dyslipidemia admitted for sepsis in the setting of pyelonephritis. 1) Bacteremia 2/2 Pyelonephritis - Blood culture x 1 grew E. Coli pansensitive - Repeat Blood Cultures pending, collected 03/24 - Urine culture also growing E. coli pansensitive - Initial CBC significant for WBC of 15k - downtrended to 8.6 - received 1 dose of cefepime and fluid boluses in the ED; received ceftriaxone for gram negative coverage x 4 days - Fever curve downtrending - Discharged on Cefdinir 300mg BID x 10 days - Hemodynamically stable and improving clinically - Follow up with urology next week and PCP in 1-2 days 2) Nephrolithiasis with obstructing calculus - CT abd/pelvic: bilateral nephrolithiasis, with an obstructing 4x3x4 mm calculus of the distal left ureter, and colonic diverticulosis - Urology: performed cystoscopy and placed L ureteral stent on 03/22 3) Anxiety - continued home citalopram 10 mg Received lovenox for DVT prophylaxis (2) History of basal cell carcinoma: (3) Sepsis: Total Time Total Time Spent Total Time Spent (In Minutes): <30 mins Discharge Plan Discharge Items Patient Disposition: Home - Self-Care Reason For Visit: SEPTIC KIDNEY STONE,ABDOMINAL PAIN Discharge Diagnosis: Bacteremia from Pyelonephritis Condition on Discharge: Good Activity: Resume your previous activity Non-emergency contact: Primary Care Provider Call non-emergency contact if: you have any medication questions, your symptoms worsen and you have a fever Follow-up/Referrals: Paul Esteves III, MD [Primary Care Provider] - Nixon Quintana MD [Physician] - (Will call office on Wednesday for appointment,then call patient with time and date) Diet: Regular Addtl Attending Provider Instructions: Ms. Red you were admitted for concern of kidney infection resulting from stone blockage. The bacteria also leaked into your blood and caused you to become sicker and bacteremic (when infection/bacteria get in your blood). You received IV antibiotics for the past 4 days with improvement in your fever curve and symptoms. You had a urologic procedure by Dr. Quintana and a stent was placed to help alleviate the blockage and improve the infection. You need to follow up with Urology for stone break up if you do not pass it spontaneously. We recommend straining your urine. Please follow the instructions below: Take antibiotic Cefdinir 300mg 1 pill twice a day for 10 days (1st dose after discharge is this evening) - Prescription sent to [facility] pharmacy Continue your routine home medications as prescribed prior to your admission Follow up with Urology next week Follow up with your primary care doctor in 1-2 days to ensure you are continuing to improve Monitor your temperature daily Follow up with your PCP or return to the emergency department if you are having fever of 100.4 or higher, worsening pain, nausea, vomiting, or any other concerning symptoms Pending Studies at Discharge: Yes Studies:: Repeat blood cultures Stand-Alone Forms: [facility], Smoking Cessation Medications and DC Order Prescriptions: New cefdinir 300 mg capsule 300 mg PO BID 10 Days Qty: 21 RF: 0 Continued citalopram 10 mg tablet 10 mg PO DAILY Qty: 90 RF: 3 cholecalciferol (vitamin D3) [Vitamin D3] 2,000 unit Capsule 2,000 unit PO QAM RF: 0 cyanocobalamin (vitamin B-12) [Vitamin B-12] 1,000 mcg Tablet 1,000 mcg PO DAILY RF: 0 potassium citrate 10 mEq (1,080 mg) tablet extended release 1 meq PO BID RF: 0 Discharge Orders: Discharge Order (Routine); Ordered 03/24/20 Ordered By: Siddharth Tran/Other Patient Handouts: Kidney Stones Prevent Admission Data Admit Date/Time: 03/22/20 09:24 Attending Provider: Cullen Bearden Admit Provider: Jaqueline Schmid Primary Care Provider: Paul Esteves III Other Providers: Jaspreet Patel ; Jaqueline Schmid Other Interventions: Discharge Summary Assessment (RN) Last Done: 03/24/20 10:16 DC Date/Time DO NOT enter until pt leaves facility: 03/24/20 12:11 Supervising Physician Co-Signing Physician Notes I personally examined the patient and verified all gerber points of history and exam, discussed case, and agree with decision making with Dr Hussein. really wants to go home. discussed risks of leaving vs benefits. discussed f/u plan and red flags. she expresses understanding and wants to go home. vitals noted nad heent nc at mmm breathing unlabored no accessory muscles good effort skin no rashes no pallor or icterus sepsis, pyelonephritis, ureteral stone and subsequent bacteremia- drainage affected by cysto, gil sensitive E Coli. strongly suspect her days febrile were just due to how inflammatory having pyelo + bacteremia would be --> clinically has improved, fever curve is improving nicely, and bacterial cultures show good sensitivities. pt very much strongly desires for discharge today - checked repeated blood cultures to be safe (discussed if they were positive would need immediate ID input, but that also this is unlikely to be the case) and after careful discussion of risks and benefits, she still wants to go home. given her cultures, dx, and improvement, i do believe she will do well at home / finish 14 total days of abx. otherwise as above Resident Activity Tracking Resident Involvement: Resident Care Provided Care Provided: Adult Hospital Medicine
--- NOTE | 2020-03-24 17:52 | Billing Data ---
Date of Service March 24, 2020 Coding Level of Care Code D/C Day Management <30 mins
== END 2020-03-24 12:11 | disposition home or self-care (01) | DRG 872 ==
LOC: ED 11:22 → OR 15:09 → 3N 15:09

== ENCOUNTER 2021-05-02 10:44 | Inpatient (IN) ==
--- NOTE | 2021-04-17 10:45 | History and Physical Report ---
CHIEF COMPLAINT: Mass protruding from the vagina. HISTORY OF PRESENT ILLNESS: The patient is a 51-year-old 3, para 2, 1 spontaneous AB. Her h usband had a vasectomy for control. She had an endometrial ablation in 2018, no bleeding since . A recent FSH showed that she was menopausal. She has a mass protruding from her vagina for about 1 -1/2 years. At first it would only protrude when she coughs, sneeze or strain. Now it is hanging ou t part at times causing a lot of pressure and discomfort. She thought about having the surgery last year, but she had trouble with kidney stones. She is presently being scheduled for a vaginal hystere ctomy, anterior and posterior colporrhaphy. PAST MEDICAL HISTORY: She has 2 children in good health. ALLERGIES: SHE IS ALLERGIC TO SULFA DRUGS. PAST SURGICAL HISTORY: She has had 5 lithotripsy. She has had a breast reduction. She has had a tu mmy tuck. She had a D and C and she had an endometrial ablation. MEDICAL HISTORY: No history of rheumatic fever, heart disease, heart murmur, diabetes, tuberculosis. SOCIAL HISTORY: No smoking, no excessive alcohol intake. Works at [employer]. FAMILY HISTORY: Mom 75 in good health. Father 78, has diabetes. One brother in good health. REVIEW OF SYSTEMS: HEAD: No symptoms of frequent or severe headaches. EYES: No symptoms of blurred vision, double vision. EARS: No symptoms of frequent ear infection, difficulty hearing. NOSE: No symptoms of frequent nosebleeds, difficulty breathing through her nose. PHYSICAL EXAMINATION: GENERAL: Well-developed, well-nourished 51-year-old white female, alert, oriented x3, cooperative, i n no acute distress. HEENT: Eyes, conjunctivae are pink. Sclerae white, no evidence of jaundice. Ears had normal light reflex bilaterally. Nose had normal mucosa. Septum is midline. There were no polyps. Throat had n o erythema or evidence of infection. Teeth are in good state of repair. Head was normocephalic, nor mal distribution of hair. NECK: Supple. Trachea midline. Thyroid is not enlarged. There is no adenopathy appreciated. Both carotids are of good intensity. CHEST: Clear to auscultation and percussion, wheezes, rales or rhonchi appreciated. CARDIOVASCULAR: Heart had regular rhythm. S1 and S2 are normal. BREAST EXAM: She has scars status post breast reduction. ABDOMEN: Soft and nontender showed a large Pfannenstiel incision well-healed scar around the umbilic us. PELVIC EXAM: Revealed a second-degree uterine prolapse with the cervix right at the vaginal opening w ithout any traction. She also had a second-degree cystocele associated with this first degree rectoc henrique. MUSCULOSKELETAL: Examination revealed no calf tenderness. IMPRESSION OF THIS CASE: Status post lithotripsy, status post breast reduction, status post tummy tuc k, status post endometrial ablation, status post D and C, symptomatic endometrial prolapse associated with a cystocele and rectocele. Job ID: [id number]
--- NOTE | 2021-04-18 11:52 | PAT Medication Instructions ---
Medication Instructions Date of Service April 18, 2021 Home Medications cholecalciferol (vitamin D3) [Vitamin D3] 2,000 unit PO QAM cyanocobalamin (vitamin B-12) [Vitamin B-12] 1,000 mcg PO QAM ] calcium citrate 250 mg PO QDL pediatric multivitamin 1 tab PO QAM citalopram [Celexa] 10 mg PO QAM conjugated estrogens [Premarin] 0.625 mg VAGINAL 2XWK potassium citrate 10 meq PO QAM Continue as directed conjugated estrogens [Premarin] 0.625 mg VAGINAL 2XWK (unless surgeon directs otherwise) DO NOT take the morning of surgery cholecalciferol (vitamin D3) [Vitamin D3] 2,000 unit PO QAM cyanocobalamin (vitamin B-12) [Vitamin B-12] 1,000 mcg PO QAM calcium citrate 250 mg PO QDL pediatric multivitamin 1 tab PO QAM potassium citrate 10 meq PO QAM Take morning of surgery With a small sip of water, OTHERWISE NOTHING TO EAT OR DRINK AFTER MIDNIGHT: citalopram [Celexa] 10 mg PO QAM Take evening before surgery calcium citrate 250 mg PO QDL (take at lunch time day prior to surgery as usual) Other Notes If you have any questions please call us at [phone] or [phone] or [phone] or [phone]
--- NOTE | 2021-04-22 14:24 | Anesthesiology Consultation ---
Date of Service April 22, 2021 Assessment & Plan (1) Encounter for pre-operative examination: Chart Review Chart Review: Acceptable Risk for Surgery (pending confirmed EKG and preop Covid testing results ) and Patient seen in Pre Admission Testing - Check test AM DOS Per PAT appointment 04/22/2021, pt traveled to [place] via private [place]ic[place]ayed in [place] with family. Patient returned 03/29/2021. Patient no longer wears mask in public since becoming vaccinated for Covid. No known Covid infection in the past 90 days. No known Covid positive contacts or Covid related symptoms. Preop Covid testing scheduled 04/30/21= will await results. Educated on importance of self quarantining, social distancing and wearing mask in public both for the patient after Covid testing done Cystoscopy, left ureteroscopy 04/09/2020 = done under [facility] with LMA #4.0. Good seal. History Surgery Operation Date: 05/02/21 11:15 Proposed Procedures p Vaginal Hysterectomy, A-P Repair - Hossein Eng MD Height/Weight Height: 5 ft 2 in Weight: 62.4 kg Allergies Allergy/AdvReac Type Severity Reaction Status Date / Time sulfamethoxazole Allergy Intermediate itching , Verified 04/11/21 12:47 [From Bactrim] rash, welts trimethoprim [From Bactrim] Allergy Intermediate itching , Verified 04/11/21 1 2:47 rash, welts adhesive Allergy Unknown ITCHING Verified 04/11/21 12:47 Medications Home Medications Medication Instructions Recorded Confirmed Last Taken cholecalciferol (vitamin D3) 2,000 unit PO QAM 03/27/19 04/11/21 04/08/20 09:00 [Vitamin D3] cyanocobalamin (vitamin B-12) 1,000 mcg PO QAM 03/21/20 04/11/21 04/08/20 09:00 [Vitamin B-12] calcium citrate 250 mg PO QDL 04/02/20 04/11/21 04/08/20 17:00 pediatric multivitamin 1 tab PO QAM 04/02/20 04/11/21 04/08/20 09:00 citalopram [Celexa] 10 mg PO QAM 04/11/21 04/11/21 Unknown conjugated estrogens [Premarin] 0.625 mg VAGINAL 2XWK 04/11/21 04/11/21 Unknown potassium citrate 10 meq PO QAM 04/11/21 04/11/21 Unknown Past Medical History Medical History Anxiety History of basal cell carcinoma s/p removal /Mohs surgery Kidney stones No current issues Nocturnal hypoxia Hx of - improved with weight loss. Hx of sleep study- no HECTOR. No oxygen needed Exercise / Class Metabolic Activity II 4-5 Yardwork/Stairs/Walk up hill Past Family History Family History Father Family history of diabetes mellitus Other No family history of adverse response to anesthesia Denies family history of Ovarian cancer Prostate cancer Myocardial infarction Breast cancer Colorectal cancer Stroke Past Surgical History Surgical History H/O gastric bypass 09/2019 History of abdominoplasty History of bilateral breast reduction surgery History of cholecystectomy History of colonoscopy History of cystoscopy History of dilatation and curettage 11/08/2017. General with LMA #4. No issues. History of endometrial ablation History of esophagogastroduodenoscopy (EGD) History of lithotripsy X5 - Usually LMA #4 05/14/17: MAC #3, ETT #7.5, HiLo Oral, Grade 1 View History of wisdom tooth extraction Hx of LASIK B/L Nausea and vomiting after administration of anesthetic agent Status post Mohs surgery for basal cell carcinoma Right christianity Past Anesthesia History No Hx of Anesthesia Complications (with one exception to one episode PONV with wisdom teeth extraction - no issues since ) and No Family Hx of Anesthesia Complications History of PONV History of PONV and Hx of Motion Sickness Social History Smoking Status: Never smoker Do You Dip or Chew Tobacco: No Hx Alcohol Use: Yes Alcohol type: beer alcohol intake frequency: holidays/special occasions only Hx Substance Use: No substance use type: does not use Review of Systems Hx of sleep study - no HECTOR Patient denies chest pain, shortness of breath, dyspnea on exertion, cough, wheezing, palpitations. No hx of seizures, stroke, LA. No hx of blood clots or blood transfusions Physical Exam Vital Signs VITALS BP 94/52 (manually- P 53 TEMP 98.3 SP02 97% RESP 16 Constitutional no acute distress ENMT Mouth: no TMJ clicking Thyromental Distance: > or= 3.5 Finger Breadths (3.5) Mallampati Class: II Neck neck extension not limited Respiratory normal respiratory effort; no respiratory distress Auscultation: lungs clear to auscultation bilaterally; no wheezes Cardiovascular Rate/Rhythm: regular rate and regular rhythm Heart Sounds: no murmur Vessels: no carotid bruit Musculoskeletal Spine: no pain with cervical ROM Extremities: extremities normal to inspection Psychiatric Orientation: alert Lab Results Anesthesia Preop Results Results Anesthesia Widget: WBC 8.33 K/uL (4.8-10.8) 04/22/21 Hgb 13.0 g/dL (12.0-16.0) 04/22/21 Hct 40.8 % (37-47) 04/22/21 Plt 237 K/uL (130-400) 04/22/21 Na 141 mmol/L (136-145) 04/22/21 K 4.4 mmol/L (3.5-5.1) 04/22/21 Cl 108 mmol/L (98-107) H 04/22/21 CO2 31 mmol/L (21-32) 04/22/21 BUN 25 mg/dl (7-18) H 04/22/21 Creat 0.56 mg/dl (0.6-1.2) L 04/22/21 Glucose Level 80 mg/dl (70-99) 04/22/21 PT 10.0 Seconds (9.0-12.0) 04/22/21 PTT 26.5 Seconds (21.0-31.0) 04/22/21 INR 1.0 (0.9-1.1) 04/22/21 Blood Type O Negative 04/22/21 Antibody Screen NEGATIVE 04/22/21 Testing Electrocardiogram Date: 04/22/21 Findings: + SB @ (52bpm) unconfirmed Echocardiogram Date: 04/07/18 EF: 60-64% LV Function: normal RWMA: + none Other Findings: no LVH Valvular Disease: + no significant valvular disease
[~2021-05-02 10:44] MED LIST changes: -CIPR1TAB10 PO; -CITA10TA8 PO; +LR 15ML/HR IV SCH; -OXYC-90 PO; -OXYC7.5T65 PO; -POTA1080 PO; +cefOXitin 2,000 MG in DEXTROSE 5% 50 ML IV SCH
[2021-05-02] MEDS ORDERED: MoRPHine SULFATE PF 1 MG/ML 10 ML AMP/VIAL ONE (11:44)
[2021-05-02] MEDS ORDERED: BUPIVACAINE 0.5 % 5 MG/1 ML PF 10ML VIAL ONE (12:07)
[2021-05-02] MEDS ORDERED: LIDOCAINE/EPINEPHRINE 1% 20 ML VIAL ONE (12:24)
--- NOTE | 2021-05-02 12:29 | History & Physical Bridge Note ---
Date of Service May 02, 2021 History & Physical Bridge Note I have examined the patient, reviewed the History & Physical and in the interval since the performance of the History & Physical I have noted the following changes of clinical significance: no changes noted
[2021-05-02] MEDS ORDERED: MIDAZOLAM HCL 1 MG/ML 2ML VIAL ONE (12:30)
[2021-05-02] MEDS ORDERED: fentaNYL citrate 100 MCG/2 ML VIAL ONE ×2 (12:30→16:08)
[2021-05-02] MEDS ORDERED: PROMETHAZINE HCL 12.5 MG in SODIUM CHLORIDE 0.9% 50 ML IV PRN (13:24)
[2021-05-02] MEDS ORDERED: SCOPOLAMINE 1 MG TDSY TD ONE ×2 (13:24→13:28)
[2021-05-02] MEDS ORDERED: ePHEDrine sulfate 50 MG/ML AMP IV PRN ×2 (13:24)
[2021-05-02] MEDS ORDERED: NALOXONE HCL 0.4 MG/1 ML VIAL/CARP IV PRN (13:24)
[2021-05-02] MEDS ORDERED: NALOXONE HCL 1 MG in SODIUM CHLORIDE 0.9% 1000ML 1,000 ML IV PRN (13:24)
[2021-05-02] MEDS ORDERED: ACETAMINOPHEN 1000 MG/100 ML IV IV PRN (13:24)
[2021-05-02] MEDS ORDERED: LACTATED RINGER'S 500 ML IV PRN (13:24)
[2021-05-02] MEDS ORDERED: fentaNYL citrate 100 MCG/2 ML VIAL IV PRN (13:24)
[2021-05-02] MEDS ORDERED: NALOXONE HCL 0.08 MG in SYRINGE 1.8 ML IV PRN (13:24)
[2021-05-02] MEDS ORDERED: HYDROmorphone INJ 0.5 MG/0.5 ML SYR IV PRN (13:24)
[2021-05-02] MEDS ORDERED: ONDANSETRON INJ 2 MG/ML 2 ML VIAL IV PRN ×2 (13:24)
[2021-05-02] MEDS ORDERED: ATROPINE SULFATE 0.1 MG/ML 10ML SYR IV PRN (13:24)
[2021-05-02] MEDS ORDERED: NALBUPHINE HCL INJ 10 MG/ML AMP IV PRN (13:24)
[2021-05-02] MEDS ORDERED: diphenhydrAMINE 50 MG/ML VIAL IV PRN (13:24)
[2021-05-02] MEDS ORDERED: MoRPHine SULFATE PF 1 MG/ML 10 ML AMP/VIAL INT SPINAL ONE (13:24)
[2021-05-02] MEDS ORDERED: DC INTRASPINAL MORPHINE SCH (13:30)
[2021-05-02] MEDS ORDERED: NO NARCOTICS OR SEDATIVES SCH (13:30)
[2021-05-02] MEDS ORDERED: SODIUM CHLORIDE 0.9% 1000ML 1,000 ML IV SCH (13:30)
[2021-05-02] MEDS ORDERED: CLINDAMYCIN PHOS 2% VAG 7 APPLN/40 GM TUBE PV ONE (13:30)
[2021-05-02] MEDS ORDERED: ROCURONIUM BROMIDE 10 MG/ML 5 ML VIAL IV ONE (14:09)
[2021-05-02] MEDS ORDERED: NEOSTIGMINE METHYLSULFATE 1 MG/ML 10ML VIAL ONE (14:09)
[2021-05-02] MEDS ORDERED: LARYING-O-JET KIT (LTA) ONE (14:09)
[2021-05-02] MEDS ORDERED: DEXAMETHASONE SOD INJ 4 MG/ML VIAL ONE (14:09)
[2021-05-02] MEDS ORDERED: ePHEDrine sulfate 50 MG/ML AMP ONE (14:09)
[2021-05-02] MEDS ORDERED: GLYCOPYRROLATE 0.2 MG/ML VIAL ONE (14:09)
[2021-05-02] MEDS ORDERED: PROPOFOL IV EMULSION 10 MG/ML 20 ML VIAL IV ONE (14:09)
[2021-05-02] MEDS ORDERED: LIDOCAINE 2% 2 ML VIAL/AMP(20MG/ML) INFIL ONE (14:09)
[2021-05-02] MEDS ORDERED: diphenhydrAMINE 50 MG/ML VIAL ONE (14:09)
[2021-05-02] MEDS ORDERED: ONDANSETRON INJ 2 MG/ML 2 ML VIAL ONE (14:09)
[2021-05-02] MEDS ORDERED: CHECK SCOPOLAMINE PATCH PLACEMENT SCH (16:00)
[2021-05-02] MEDS ORDERED: PROMETHAZINE HCL INJ 25 MG/ML 1 ML VIAL ONE (16:30)
--- NOTE | 2021-05-02 16:42 | Post Operative Brief Note ---
Immediate Post Op Note v1 Date of Surgery May 02, 2021 Pre & Post Diagnosis Operation Date: 05/02/21 12:40 Pre-Op Diagnosis:Fourth Degree Uterine Prolapse, 2nd Degree Cystocele Post-Op Diagnosis: Fourth degree Degree Uterine Prolapse, 2nd Degree Cystocele I identified the patient and participated in the time-out.: Yes Procedure Operation Date: 05/02/21 12:40 Actual Procedures p Vaginal Hysterectomy, Anterior Posterior Repair, Suprapubic catheter placement(Not Applicable) - Hossein Eng MD Surgeon Hossein Eng MD Construction Quality Control Manager none Estimated Blood Loss 100 Findings Consistent with Post-Op Diagnosis fourth degree uterine prolapse second degree cystocele second degree rectocele Drains Lainez Catheter (lainez catheter in place during procedure, removed to insert suprapubic catheter) and Suprapubic Catheter Anesthesia Type General Complications nonr Disposition Accompanied Patient To Recovery: No
--- NOTE | 2021-05-02 16:43 | Anesthesiology Progress Note ---
Date of Service May 02, 2021 Anesthesia Post Procedure Vital Signs Vital Signs: Temp Pulse Resp BP Pulse Ox 05/02/21 11:08 36.8 C 54 L 18 99/50 L 99 Transfer of Care Handoff Completed per policy Notes Mental Status: alert / awake / arousable Patient Amnestic to Procedure: Yes Nausea / Vomiting: adequately controlled Pain: adequately controlled Airway Patency, RR, SpO2: stable & adequate BP & HR: stable & adequate Hydration State: stable & adequate Anesthetic Complications: no major complications apparent
[2021-05-02] MEDS ORDERED: KETOROLAC 30 MG/ML VIAL IV PRN (18:05)
[2021-05-02] MEDS ORDERED: IBUPROFEN 600 MG TAB PO PRN (18:05)
[2021-05-02] MEDS ORDERED: MEPERIDINE HCL 50 MG/ML CARP IV PRN (18:05)
[2021-05-02] MEDS ORDERED: oxyCODONE/ACETAMINOPHEN 5mg/325mg TAB PO PRN (18:05)
--- NOTE | 2021-05-02 18:53 | Anesthesiology Progress Note ---
Date of Service May 02, 2021 Anesthesia Post Procedure Vital Signs Vital Signs: Temp Pulse Pulse Pulse Resp BP BP 05/02/21 18:45 60 18 95/60 L 05/02/21 18:15 65 16 96/44 L 05/02/21 17:45 36.5 C 60 16 94/56 L 05/02/21 17:30 62 16 93/50 L 05/02/21 17:20 59 L 14 94/51 L 05/02/21 17:10 36.4 C L 61 16 89/51 L 05/02/21 17:00 66 16 97/48 L 05/02/21 16:50 60 16 91/38 L 05/02/21 16:40 67 18 103/51 L 05/02/21 16:31 36.6 C 65 12 115/62 05/02/21 11:08 36.8 C 54 L 18 99/50 L Pulse Ox 05/02/21 18:45 96 05/02/21 18:15 96 05/02/21 17:45 96 05/02/21 17:30 94 05/02/21 17:20 94 05/02/21 17:10 94 05/02/21 17:00 95 05/02/21 16:50 100 05/02/21 16:40 100 05/02/21 16:31 98 05/02/21 11:08 99 Transfer of Care Handoff Completed per policy Notes Mental Status: alert / awake / arousable Patient Amnestic to Procedure: Yes Nausea / Vomiting: adequately controlled Pain: adequately controlled Airway Patency, RR, SpO2: stable & adequate BP & HR: stable & adequate Hydration State: stable & adequate Anesthetic Complications: no major complications apparent
--- NOTE | 2021-05-02 19:10 | Operative Report (OR) ---
DATE OF PROCEDURE: 05/02/2021 PROCEDURE: Vaginal hysterectomy, anterior and posterior colporrhaphy, insertion of suprapubic cystoc ath. INDICATION FOR SURGERY: Mass protruding from the vagina. PREOPERATIVE DIAGNOSES: Fourth-degree uterine prolapse, second to third degree cystocele, second to third degree rectocele. POSTOPERATIVE DIAGNOSES: Fourth-degree uterine prolapse, second to third degree cystocele, second to third degree rectocele. SURGEON: Brian Eng MD. SHUTTLE FILLER: None. ESTIMATED BLOOD LOSS: 100 mL. ANESTHESIA: Spinal narcotics with general. OPERATIVE FINDINGS AND PROCEDURE: The patient was brought to the OR table, correctly identified by a rmband and conversation. Spinal narcotics were given. The patient was then given general anesthesia . She was placed in the stirrups on the operating room table. Perineum and vagina were painted with Betadine paint, draped in the usual sterile fashion. A metal catheter was used to empty the bladder . The anterior lip of the cervix was grasped with a single tooth tenaculum and the entire cervix cam e right out through the vaginal opening indicating a fourth-degree uterine prolapse. The vaginal mucosa was infiltrated around the cervix with local with epinephrine and then a circular incision was made. The bladder was taken off at 12 o'clock by grabbing with a T clamp and then blunt ly dissecting the bladder off the anterior portion of the cervix and clamping each bladder pillar sep arately, cutting it and ligating it with a transfixion suture chromic catgut. Then, we went to the p osterior, the posterior cul-de-sac was entered and the peritoneum was identified anteriorly and poste riorly. The cardinal ligament was then clamped, cut with a stump and then ligated with a chromic gut suture. We then advanced up the cardinal ligament. We slid off the cervix with another curved Gruber er, cut with a stump and ligated with a transfixion suture to ligate the majority of the cardinal lig ament in one bite. The uterus came down. We then clamped the rest of the attachment, it was consist ed a portion of the cardinal ligament, uterine vessels on either side, cut with a stump and ligated w ith a transfixion suture chromic catgut. I then clamped the rest of the attachment off, which consis rehana of the ovarian ligament and tube, doubly clamped on either side and then removed the surgical spe cimen consisted of uterus and cervix. We doubly ligated the tube and ovarian pedicle and tagged them. We then packed off the bowel. Cul-d e-sac was partially obliterated. I had freed up and pushed out some colon that was adhered to the cul -de-sac. Also, the posterior surface of the uterus was adhered that was easily broken up with blunt dissection with a finger. I then restored the anatomy, pushed the bowel out of the way and then I pu rsestringed the posterior vaginal cuff from one cardinal ligament to the other cardinal ligament, mary ellen ing bites in and out of the entire thickness of the upper vagina. After this, I pursestringed it toge ther. I then brought the anterior peritoneum down, closed the peritoneum anteriorly and then I appro ximated the vaginal mucosal edges horizontally with interrupted heavy duty Vicryl sutures. Then, I w ent to doing the cystocele. I grabbed the external urethral meatus about a centimeter from the opening, infiltrated the anterior vagina with local with epinephrine, started the incision with a knife and then dissected the vaginal mucosa off the bladder up to where the cuff had ended. Then, I grabbed the vaginal mucosa with T cla mps, dissected the bladder off bluntly and then I reduced the cystocele with interrupted [id number] ght sutures of 3-0 Vicryl. This gave a good reduction with good elevation of the urethrovesical angl e, which was further supported with a heavy duty chromic that went lateral and elevated the urethrove sical angle and then a heavy duty mattress chromic, which mattressed the vaginal mucosa at the angle. Excess vagina was removed and then the vaginal edges were approximated with [id number] sutures of 3-0 Vicryl. We took careful attention to attach the top of the vaginal cuff and bladder fascia t o the recreated vaginal cuff support. After this, we went to the rectocele. I used 2 roll sponges, placed them against the anterior repair right angle retractor. I infiltrated the perineal body with local with epinephrine and the posterior vagina right up to the cuff with loca l with epinephrine. Excised a wedge-shaped portion of the perineal skin, grasped the posterior vagin a with a T clamp and bluntly dissected off the vaginal mucosa up to the cuff. I then incised the pos terior vagina up to the cuff in the middle, grabbed them with a T clamp, noted the level of the sutur es. I could palpate the ischial spines, went lateral and brought together good fascial support with a [id number]-[id number] suture of heavy duty Vicryl. I then placed about 4 more kpldmu-ki-mcffu sutures o f heavy duty Vicryl to approximate the fascial layer. The top suture I left to come out the perineum for a suture drain. I then did a deep suture to approximate the bulbocavernosus muscle, separate 2 sutures to approximate the perineal body. I excised the excess vaginal mucosa and did a running cont inuous interlocking suture of heavy Vicryl out and to beyond the hymenal ring and did a running subcu ticular approximation of the perineal body. Following this, I did a rectal exam. There were no stit ches through the rectum. I then changed gloves. I packed the vagina with a gauze with clindamycin cream. Before I packed the vagina, I checked the depth and width of the vagina, I could fit 2 fingers in without undue pressure and it had good 5 inches of depth. After packing off the vaginal cavity with most of the jar of 1-in ch packing, about 75% of it, I then went to the bladder. I filled the bladder up to 420 mL of valarie l saline, put a trocar down about an inch above the symphysis into the bladder, threaded down the cat heter, removed the sleeve from the trocar and then sutured the suprapubic catheter to the abdominal w all, connected to gravity drainage. Before we connected to gravity drainage, we did remove 120 mL, w hich would leave the 300 mL left that we had instilled. Following this procedure was done, hemostas is was excellent. The patient tolerated the procedure well and left the OR in good condition. Job ID: [id number]
[2021-05-02] MEDS ORDERED: Nursing to Pharmacy Communication SCH (19:15)
[2021-05-02] MEDS: D5W AND LACTATED RINGERS 1,000 ML IV SCH (20:05)
[2021-05-03] MEDS: D5W AND LACTATED RINGERS 1,000 ML IV SCH ×3 (03:44→19:54)
[2021-05-03 05:36] LABS: Hematocrit (blood only) 36.9 % (37-47); Hemoglobin 11.8 g/dL (12.0-16.0)
--- NOTE | 2021-05-03 10:45 | Obstetrical Progress Note ---
Date of Service May 03, 2021 Assessment & Plan Admission and Anticipated Discharge Date Admission Date: May 02, 2021 Subjective abdomen soft and non tender bowel sounds present hypoactive no calf tenderness urine clear out put good vaginal bleeding scant hgb 11.8 Results & Data ([facility]) Vital Signs (Past 12 Hours) Vital Signs Temp Pulse Resp BP Pulse Ox Pulse Ox 05/03/21 08:04 36.8 C 64 21 87/54 L 97 97 05/03/21 07:15 19 98 05/03/21 06:08 18 96 05/03/21 05:30 16 95 05/03/21 04:40 18 95 05/03/21 03:25 36.7 C 55 L 16 82/51 L 96 05/03/21 02:35 18 95 05/03/21 01:25 16 95 05/03/21 00:15 18 94 05/02/21 23:05 36.8 C 74 16 102/66 95
[2021-05-03] MEDS: oxyCODONE/ACETAMINOPHEN 5mg/325mg TAB PO PRN ×2 (14:20→21:29)
[2021-05-04] MEDS: D5W AND LACTATED RINGERS 1,000 ML IV SCH (03:27)
[2021-05-04] MEDS: oxyCODONE/ACETAMINOPHEN 5mg/325mg TAB PO PRN ×4 (03:27→19:39)
[2021-05-04] MEDS: DOCUSATE SODIUM 100 MG CAP PO SCH ×2 (09:23→21:08)
--- NOTE | 2021-05-04 11:44 | Obstetrical Progress Note ---
Date of Service May 04, 2021 Assessment & Plan Admission and Anticipated Discharge Date Admission Date: May 02, 2021 Subjective abdomen soft and non tender passing flatus urine clear out put good vaginal packing removed vaginal bleeding scant hgb 11.4 Results & Data ([facility]) Vital Signs (Past 12 Hours) Vital Signs Temp Pulse Resp BP Pulse Ox 05/04/21 07:15 36.7 C 57 L 18 104/67 97 05/04/21 03:25 36.9 C 57 L 18 104/54 L 95
[2021-05-05] MEDS: oxyCODONE/ACETAMINOPHEN 5mg/325mg TAB PO PRN ×4 (00:22→21:42)
[2021-05-05] MEDS: DOCUSATE SODIUM 100 MG CAP PO SCH ×2 (08:40→21:42)
--- NOTE | 2021-05-05 09:14 | Obstetrical Progress Note ---
Date of Service May 05, 2021 Assessment & Plan Admission and Anticipated Discharge Date Admission Date: May 02, 2021 Subjective abdomen soft and non tender no calf tenderness ambulating well urine clear voided 200 ml with 125 ml residua vaginal bleeding scant hgb 11.8 Results & Data ([facility]) Vital Signs (Past 12 Hours) Vital Signs Temp Pulse Resp BP Pulse Ox 05/05/21 04:45 36.9 C 60 16 109/70 96 05/05/21 00:20 36.9 C 63 18 104/71 95
[2021-05-06] MEDS: oxyCODONE/ACETAMINOPHEN 5mg/325mg TAB PO PRN (06:38)
[2021-05-06] MEDS: DOCUSATE SODIUM 100 MG CAP PO SCH (07:30)
--- NOTE | 2021-05-06 09:32 | Obstetrical Progress Note ---
Date of Service May 06, 2021 Assessment & Plan Admission and Anticipated Discharge Date Admission Date: May 02, 2021 Subjective abdomen soft and non tender passing flatus no calf tenderness ambulating well vaginal bleeding scant voiding with residuals under 150 ml suprapubic catheter removed Results & Data ([facility]) Vital Signs (Past 12 Hours) Vital Signs Temp Pulse Resp BP Pulse Ox 05/05/21 23:15 36.9 C 62 16 101/59 L 96
--- NOTE | 2021-05-06 11:44 | Discharge Summary (DS) ---
DATE OF ADMISSION: 05/02/2021 DATE OF DISCHARGE: 05/06/2021 HOSPITAL COURSE: The patient was admitted with symptoms of a mass protruding through the vagina, has been dealing with this for over a year and a half, getting progressively worse. She is a 51-year-ol d 3, para 2. She was diagnosed with actually a third to fourth degree uterine prolapse and a second degree cystocele and rectocele. She was taken to the OR. She received prophylactic antibiot ics. She underwent vaginal hysterectomy with suspension of the cuff, anterior colporrhaphy, posterio r colporrhaphy, and suprapubic cystocath. We used vaginal packing, which we left in for 2 days. After the second day, the packing was removed. Her bowel sounds returned promptly. She remained afebrile throughout her postoperative course. Postoperative hemoglobin was 11.8. On third day, she was star ting to void already. By the time of discharge, she was voiding over 500 mL at a time with residuals that were averaging about 100-125 mL. Suprapubic catheter was removed on her last day in the hospital and she was discharged. She was given prescription for Percocet and told to call the office if she had a temperature over 100 or any heavy bleeding. Job ID: [id number]
== END 2021-05-06 14:15 | disposition home or self-care (01) | DRG 743 ==
LOC: ASU 10:44 → 4N 16:36 → 4S2 05-03 17:08
PROC: M.APREP (2021-05-02 12:40)

== ENCOUNTER 2023-06-19 05:57 | Observation (INO) ==
[2023-06-19] MEDS ORDERED: SODIUM CHLORIDE 0.9% 1,000 ML IV SCH (06:45)
[2023-06-19] MEDS ORDERED: cefTRIAXone SODIUM 2,000 MG/70 ML BAG IV STA (06:46)
--- NOTE | 2023-06-19 06:48 | Emergency Department Note ---
History of Present Illness General Chief complaint: Illness Stated complaint: FEVER,NAUSEA,ACHES Time Seen by Provider: 06/19/23 06:31 Source: patient, family ( who is at the [facility]), RN notes reviewed and old records reviewed (I did review her ultrasound result from [facility] which is an outside facility) Mode of arrival: ambulatory Limitations: no limitations History of Present Illness Maximum Pain Intensity: 6 This patient is a 53-year-old female who comes in with fever and body aches. She started feeling ill last Wednesday into Wednesday she felt okay until Wednesday night and she had a high fever and chills she saw her doctor and had a negative urine culture she tells me she also had an ultrasound done yesterday which showed moderate right-sided hydronephrosis. She does have history of k idney stones and a kidney stone within infection she is worried that could be what is going on she has a temperature up to 102.4 this morning she take Tylenol and it came down she had some nausea and dry heaves she has had not been eating much no diarrhea no abdominal pain no chest pain shortness breath or cough or respiratory symptoms no sore throat or runny nose. She has a headache when the fever is there but it goes away when the brakes. No rash or tick bites known. She is no back pain she has no dysuria hematuria however she does have frequency of urination. Her doctor called in Macrobid yesterday. No trauma. Home Medications Medication Instructions Recorded Confirmed Type cholecalciferol (vitamin D3) 50 2,000 unit PO QAM 03/27/19 06/19/23 History mcg (2,000 unit) capsule (Vitamin D3) cyanocobalamin (vitamin B-12) 1,000 mcg PO QAM 03/21/20 06/19/23 History 1,000 mcg tablet (Vitamin B-12) calcium citrate 250 mg PO BID 04/02/20 06/19/23 History conjugated estrogens 0.625 mg/gram 0.625 mg vaginal 2XWK 04/11/21 06/19/23 History vaginal cream (Premarin) potassium citrate 10 mEq (1,080 10 meq PO QAM 04/11/21 06/19/23 History mg) tablet,extended release multivitamin 1 tab PO BID 05/02/21 06/19/23 History nitrofurantoin 100 mg PO Q12H 4 days #8 caps 09/17/21 06/19/23 Rx monohydrate/macrocrystals 100 mg capsule (Macrobid) citalopram 10 mg tablet (Celexa) 10 mg PO QAM #90 tabs 12/11/22 06/19/23 Rx cyclosporine 0.05 % eye drops in a 1 drp ophthalmic (eye) BID 06/19/23 06/19/23 History dropperette (Restasis) semaglutide (weight loss) 0.25 0.25 mg subcut WK 06/19/23 06/19/23 History mg/0.5 mL subcutaneous pen injector (Wegovy) Allergies Allergy/AdvReac Type Severity Reaction Status Date / Time sulfamethoxazole Allergy Intermediate itching , Verified 06/19/23 08:35 [From Bactrim] rash, welts trimethoprim [From Bactrim] Allergy Intermediate itching , Verified 06/19/23 08:35 rash, welts adhesive Allergy Unknown ITCHING Verified 06/19/23 08:35 ibuprofen AdvReac Unknown Unknown Verified 06/19/23 08:35 Past Med/Surg History Medical History Anxiety History of basal cell carcinoma s/p removal /Mohs surgery Kidney stones No current issues Nocturnal hypoxia Hx of - improved with weight loss. Hx of sleep study- no HECTOR. No oxygen neede d Surgical History H/O gastric bypass 09/2019 History of abdominoplasty History of bilateral breast reduction surgery History of cholecystectomy History of colonoscopy History of cystoscopy History of dilatation and curettage 11/08/2017. General with LMA #4. No issues. History of endometrial ablation History of esophagogastroduodenoscopy (EGD) History of lithotripsy X5 - Usually LMA #4 05/14/17: MAC #3, ETT #7.5, HiLo Oral, Grade 1 View History of wisdom tooth extraction Hx of LASIK B/L Nausea and vomiting after administration of anesthetic agent Status post Mohs surgery for basal cell carcinoma Right sikhism Family History Father Family history of diabetes mellitus Other No family history of adverse response to anesthesia Denies family history of Ovarian cancer Prostate cancer Myocardial infarction Breast cancer Colorectal cancer Stroke Social History Smoking Status: Never smoker Second Hand Exposure: No; Do You Dip or Chew Tobacco: No; Hx Alcohol Use: No Hx Substance Use: No Preferred Language: Swazi Communication Ability: Effective Visual Impairment: No Limitations Hearing Ability: Normal Economics Consultant Required: No Beliefs That Will Affect Care: None marital status: Current Living Situation: Spouse and Family current occupational status: employed Other Information That Helps Us Care for You: No Feels Safe at Home: Yes Safety Concerns: Feels Safe At This Time Childhood Exposure to Second-Hand Smoke: Yes Diet: regular caffeine: Yes during the past year weight has: remained stable Dental Care, Regularly: Yes Physical Activity Frequency: Does not Exercise Seatbelt Use: always Sunscreen Use: Yes Assistive Devices: None Review of Systems A total of 10 systems reviewed and were otherwise negative Physical Exam Vital Signs Vital Signs - 24 hr 06/19/23 06:01 06/19/23 08:05 06/19/23 08:07 Temperature 37.3 C 37.1 C Temperature Source Temporal Artery Scan Oral Pulse Rate 99 H 73 Pulse Rate [Right Finger] 70 Pulse Rhythm Regular Respiratory Rate 18 12 16 Respiratory Effort / Characteristics Non-Labored Non-Labored Respiratory Depth Normal Normal Blood Pressure 129/67 Blood Pressure [Right Arm] 95/57 L Blood Pressure Mean 87 Blood Pressure Mean [Right Arm] 69 Pulse Oximetry 95 99 98 Oxygen Delivery Method Room Air Room Air Room Air Oxygen Flow Rate 0 Sepsis Recent Fever Within 48 Hours Yes Sepsis New/Unexplained Change in Mental Status No Sepsis Action Taken by Nursing No Action Required 06/19/23 08:08 06/19/23 09:11 Temperature Temperature Source Pulse Rate 71 Pulse Rate [Right Finger] 74 Pulse Rhythm Respiratory Rate 14 Respiratory Effort / Characteristics Non-Labored Respiratory Depth Normal Blood Pressure Blood Pressure [Right Arm] 93/60 L Blood Pressure Mean Blood Pressure Mean [Right Arm] 71 Pulse Oximetry 99 Oxygen Delivery Method Room Air Oxygen Flow Rate Sepsis Recent Fever Within 48 Hours Sepsis New/Unexplained Change in Mental Status Sepsis Action Taken by Nursing General: Well developed well nourished middle-age female who in no acute distress, breathing comfortably on room air. Normal speech HEENT: Normal cephalic atraumatic. Pupils are equal round and reactive to lig ht. Extraocular movements are intact. Oropharynx is pink with moist mucous membranes. No swelling of the mouth lips or tongue. Neck: Supple with a midline trachea. No meningeal signs or stiffness, no JVD or bruits. No Stridor. Chest: Clear to auscultation bilaterally. No wheezes or rhonchi. No increased work of breathing. Heart: Regular rate and rhythm without murmurs or gallops. Abdomen: Soft nontender, nondistended without rebound guarding or rigidity. Extremities: No cyanosis clubbing or edema. No calf tenderness or assymetry Spine/Back. Non tender to palpation. No CVA tenderness Skin: Good turgor without rashes. Neurologic exam: Cranial nerves two through 12 are intact. Motor and sensation are intact and symmetrical throughout. Course Course She was reevaluated multiple times and updated her. I did consult urology and talk to Dr. Ambrosio at [phone]. I also consulted medicine Administered Medications Acetaminophen (Ofirmev) 1,000 mg in 100 mls @ 400 mls/hr IV Q8H PRN PRN Reason: Fever Stop: 06/22/23 11:19 Last Infusion: 06/19/23 11:48 Dose: 0 mls/hr Documented By: Admin: 06/19/23 11:25 Dose: 400 mls/hr Documented By: ALEXIS Discontinued Medications Sodium Chloride (Nss) 1,000 mls @ 999 mls/hr IV .Q1H1M TRISTAN Stop: 06/19/23 07:45 Last Infusion: 06/19/23 09:09 Dose: 0 mls/hr Documented By: Admin: 06/19/23 08:01 Dose: 999 mls/hr Documented By: JUANJO Ceftriaxone Sodium (Rocephin) 2,000 mg in 70 mls @ 140 mls/hr IV NOW STA Stop: 06/19/23 07:15 Last Infusion: 06/19/23 08:31 Dose: 0 mls/hr Documented By: Admin: 06/19/23 08:01 Dose: 140 mls/hr Documented By: JUANJO Sodium Chloride (Nss) 1,000 mls @ 999 mls/hr IV .Q1H1M ONE Stop: 09/09/23 08:40 Last Infusion: 06/19/23 09:09 Dose: 0 mls/hr Documented By: Admin: 06/19/23 08:00 Dose: 999 mls/hr Documented By: JUANJO Critical Care Time Critical Care Time: Yes Total Critical Care Time: 35 Due to the patient's obstructive uropathy with associated sepsis, need for IV fluid boluses with frequent reassessment, IV antibiotics and consultation with urology as well as medicine, I have personally spent greater than 40 minutes of critical care time in the direct management of this patient. This includes bedside care, interpretation of diagnostic studies, and testing, discussion with consultants, patient, and family members, and other required patient management activities. This 40 minutes is in excess of all separately billable procedures. Medical Decision Making Differential Diagnosis Kidney stone, UTI/kidney infection, COVID, influenza, infection, sepsis, dehydration, electrolyte or metabolic abnormality Medical Records Attestation: I reviewed the patient's medical records. Home Medications Current Medication List: was personally reviewed by me Laboratory Data Attestation: I reviewed the patient's lab results. 06/19/23 06:30 06/19/23 06:30 Lab Results 06/19/23 06/19/23 06/19/23 Range/Units 06:30 06:30 06:30 WBC 13.73 H (4.8-10.8) K/ul RBC 3.66 L (4.20-5.40) M/uL Hgb 11.5 L (12.0-16.0) g/dl Hct 34.3 L (37.0-47.0) % MCV 93.7 (80.0-100.0) fL MCH 31.4 (25.0-34.0) pg MCHC 33.5 (32.0-36.0) g/dL RDW Std Deviation 41.4 (36.4-46.3) fL RDW Coeff of Lazara 12.0 (11.5-14.5) % Plt Count 151 (130-400) K/uL MPV 10.2 (9.4-12.4) fL Immature Gran % (Auto) 0.7 % Neut % (Auto) 87.2 % Lymph % (Auto) 4.2 % [place] % (Auto) 7.7 % Eos % (Auto) 0.0 % Baso % (Auto) 0.2 % Neut # (Auto) 11.97 H (1.40-6.50) K/uL Lymph # (Auto) 0.58 L (1.20-3.40) K/uL [place] # (Auto) 1.06 H (0.11-0.59) K/uL Eos # (Auto) 0.00 (0.00-0.50) K/uL Baso # (Auto) 0.03 (0.00-0.20) K/uL Immature Gran # (Auto) 0.09 (0.01-0.20) K/uL Sodium 133 L (136-145) mmol/L Potassium 4.2 (3.5-5.1) mmol/L Chloride 98 (98-107) mmol/L Carbon Dioxide 27 (21-32) mmol/L Anion Gap 8 (3-11) BUN 25 H (6-23) mg/dl Creatinine 0.92 (0.6-1.2) mg/dl Est Cr Clr Drug Dosing 61.6 ml/min Est GFR ( Amer) 81.2 ml/min Est GFR (Non-Af Amer) 70.1 ml/min BUN/Creatinine Ratio 27.2 H (10-20) Glucose 178 H (70-99(Fasting)) mg/dl Lactate 2.7 H* (0.4-2.0) mmol/L Calcium 9.3 (8.6-10.3) mg/dl Magnesium 1.9 (1.7-2.4) mg/dl Total Bilirubin 0.4 (0.2-1.0) mg/dl Direct Bilirubin 0.2 (0-0.2) mg/dl AST 32 (13-39) U/L ALT 19 (7-52) U/L Alkaline Phosphatase 60 (34-104) U/L Total Protein 6.6 (6.0-8.3) gm/dl Albumin 3.4 (3.4-5.0) gm/dl Procalcitonin (0-0.5) ng/ml Urine Color Urine Appearance (Clear) Urine pH (4.5-7.5) Ur Specific [place] (1.000-1.030) Urine Protein (Negative) Urine Glucose (UA) (Negative) Urine Ketones (Negative) Urine Blood (Negative) Urine Nitrite (Negative) Urine Bilirubin (Negative) Urine Urobilinogen (Negative) Ur Leukocyte Esterase (Negative) Urine WBC (Auto) (0-5) /hpf Urine RBC (Auto) (0-4) /hpf U Hyaline Cast (Auto) (0-5) /lpf U Epithel Cells (Auto) (0-5) /lpf Urine Bacteria (Auto) (Negative) Ur Renal Epithelial Cell Urine Mucus (None Prsent) Urine Yeast SARS-CoV-2 (PCR) (Negative) Influenza Type A (PCR) (Neg) Influenza Type B (PCR) (Neg) RSV (RT-PCR) (Neg) 06/19/23 06/19/23 06/19/23 Range/Units 06:30 06:30 07:16 WBC (4.8-10.8) K/ul RBC (4.20-5.40) M/uL Hgb (12.0-16.0) g/dl Hct (37.0-47.0) % MCV (80.0-100.0) fL MCH (25.0-34.0) pg MCHC (32.0-36.0) g/dL RDW Std Deviation (36.4-46.3) fL RDW Coeff of Lazara (11.5-14.5) % Plt Count (130-400) K/uL MPV (9.4-12.4) fL Immature Gran % (Auto) % Neut % (Auto) % Lymph % (Auto) % [place] % (Auto) % Eos % (Auto) % Baso % (Auto) % Neut # (Auto) (1.40-6.50) K/uL Lymph # (Auto) (1.20-3.40) K/uL [place] # (Auto) (0.11-0.59) K/uL Eos # (Auto) (0.00-0.50) K/uL Baso # (Auto) (0.00-0.20) K/uL Immature Gran # (Auto) (0.01-0.20) K/uL Sodium (136-145) mmol/L Potassium (3.5-5.1) mmol/L Chloride (98-107) mmol/L Carbon Dioxide (21-32) mmol/L Anion Gap (3-11) BUN (6-23) mg/dl Creatinine (0.6-1.2) mg/dl Est Cr Clr Drug Dosing ml/min Est GFR ( Amer) ml/min Est GFR (Non-Af Amer) ml/min BUN/Creatinine Ratio (10-20) Glucose (70-99(Fasting)) mg/dl Lactate (0.4-2.0) mmol/L Calcium (8.6-10.3) mg/dl Magnesium (1.7-2.4) mg/dl Total Bilirubin (0.2-1.0) mg/dl Direct Bilirubin (0-0.2) mg/dl AST (13-39) U/L ALT (7-52) U/L Alkaline Phosphatase (34-104) U/L Total Protein (6.0-8.3) gm/dl Albumin (3.4-5.0) gm/dl Procalcitonin 7.11 H (0-0.5) ng/ml Urine Color Dark Yellow Urine Appearance Cloudy A (Clear) Urine pH 6.0 (4.5-7.5) Ur Specific [place] 1.026 (1.000-1.030) Urine Protein 2+ H (Negative) Urine Glucose (UA) Negative (Negative) Urine Ketones 1+ H (Negative) Urine Blood 1+ H (Negative) Urine Nitrite Negative (Negative) Urine Bilirubin Negative (Negative) Urine Urobilinogen Negative (Negative) Ur Leukocyte Esterase 1+ H (Negative) Urine WBC (Auto) >30 H (0-5) /hpf Urine RBC (Auto) 5-10 H (0-4) /hpf U Hyaline Cast (Auto) 1-5 (0-5) /lpf U Epithel Cells (Auto) >30 H (0-5) /lpf Urine Bacteria (Auto) Negative (Negative) Ur Renal Epithelial Cell Not Reportable Urine Mucus Present A (None Prsent) Urine Yeast Not Reportable SARS-CoV-2 (PCR) NEGATIVE (Negative) Influenza Type A (PCR) Negative (Neg) Influenza Type B (PCR) Negative (Neg) RSV (RT-PCR) Negative (Neg) 06/19/23 Range/Units 08:44 WBC (4.8-10.8) K/ul RBC (4.20-5.40) M/uL Hgb (12.0-16.0) g/dl Hct (37.0-47.0) % MCV (80.0-100.0) fL MCH (25.0-34.0) pg MCHC (32.0-36.0) g/dL RDW Std Deviation (36.4-46.3) fL RDW Coeff of Lazara (11.5-14.5) % Plt Count (130-400) K/uL MPV (9.4-12.4) fL Immature Gran % (Auto) % Neut % (Auto) % Lymph % (Auto) % [place] % (Auto) % Eos % (Auto) % Baso % (Auto) % Neut # (Auto) (1.40-6.50) K/uL Lymph # (Auto) (1.20-3.40) K/uL [place] # (Auto) (0.11-0.59) K/uL Eos # (Auto) (0.00-0.50) K/uL Baso # (Auto) (0.00-0.20) K/uL Immature Gran # (Auto) (0.01-0.20) K/uL Sodium (136-145) mmol/L Potassium (3.5-5.1) mmol/L Chloride (98-107) mmol/L Carbon Dioxide (21-32) mmol/L Anion Gap (3-11) BUN (6-23) mg/dl Creatinine (0.6-1.2) mg/dl Est Cr Clr Drug Dosing ml/min Est GFR ( Amer) ml/min Est GFR (Non-Af Amer) ml/min BUN/Creatinine Ratio (10-20) Glucose (70-99(Fasting)) mg/dl Lactate 1.4 (0.4-2.0) mmol/L Calcium (8.6-10.3) mg/dl Magnesium (1.7-2.4) mg/dl Total Bilirubin (0.2-1.0) mg/dl Direct Bilirubin (0-0.2) mg/dl AST (13-39) U/L ALT (7-52) U/L Alkaline Phosphatase (34-104) U/L Total Protein (6.0-8.3) gm/dl Albumin (3.4-5.0) gm/dl Procalcitonin (0-0.5) ng/ml Urine Color Urine Appearance (Clear) Urine pH (4.5-7.5) Ur Specific [place] (1.000-1.030) Urine Protein (Negative) Urine Glucose (UA) (Negative) Urine Ketones (Negative) Urine Blood (Negative) Urine Nitrite (Negative) Urine Bilirubin (Negative) Urine Urobilinogen (Negative) Ur Leukocyte Esterase (Negative) Urine WBC (Auto) (0-5) /hpf Urine RBC (Auto) (0-4) /hpf U Hyaline Cast (Auto) (0-5) /lpf U Epithel Cells (Auto) (0-5) /lpf Urine Bacteria (Auto) (Negative) Ur Renal Epithelial Cell Urine Mucus (None Prsent) Urine Yeast SARS-CoV-2 (PCR) (Negative) Influenza Type A (PCR) (Neg) Influenza Type B (PCR) (Neg) RSV (RT-PCR) (Neg) Imaging Data Attestation: I personally reviewed and interpreted this imaging study as follows: My Impression: Chest x-rayno acute infiltrate, failure, pneumothorax seen CT of the abdomen and pelvis stone study Radiologist's Impression: Abdomen/Pelvis CT 06/19/23 06:43 CT SCAN OF THE ABDOMEN AND PELVIS WITHOUT IV CONTRAST CLINICAL HISTORY: Generalized abdominal pain. COMPARISON STUDY: Abdominal CT dated 09/11/2021. TECHNIQUE: CT scan of the abdomen and pelvis is performed from the lung bases to the proximal femora. Images are reviewed in the axial, sagittal, and coronal planes. IV contrast was not administered for this examination. A dose lowering technique was utilized adhering to the principles of ALARA. CT DOSE: 908.09 mGy.cm FINDINGS: Lung bases: The heart is normal in size and without pericardial effusion. There are trace pleural effusions with dependent atelectasis. Liver: The unenhanced liver is normal in size, contour, and attenuation. There is no intrahepatic biliary ductal dilatation. Large hepatic cysts are similar to previous. The largest arises from the inferior right lobe and measures up to 14. 5 cm. The large calcified granuloma is seen in the dome of liver. Gallbladder: Surgically absent noting clips in the gallbladder fossa. Spleen: Normal in size and attenuation. Pancreas: Unremarkable. Adrenal glands: Unremarkable. Kidneys: The right kidney is enlarged and edematous. There are at least 2 obstructing calculi at the right vesicoureteral junction which measure up to 4 mm. This causes mild to moderate right hydroureteronephrosis. An additional 2 mm calculus is seen in the distal right ureter on image #297. There are at least 3 small obstructing calculi in the distal left ureter which measure up to 3 mm. This causes mild hydroureteronephrosis on the left. There are least 2 additional nonobstructing calculi present in both kidneys which measure up to 4 mm. Perihilar stranding is seen bilaterally. As noted above, the right kidney is enlarged and heterogeneous. There is ill-defined subcapsular hyperdensity. Trace subcapsular hemorrhage is not excluded. There is no evidence of contour deforming renal mass lesion. Abdominal vasculature: The abdominal aorta is normal in course and caliber. Stomach and bowel: Postsurgical changes consistent with a Armando-en-Y gastric bypass procedure. No bowel obstruction is seen. There is mild to moderate colonic diverticulosis without CT evidence of acute diverticulitis. The appendix is well-visualized and normal. Peritoneum: There is no intraperitoneal free air or abdominal ascites. Lymphadenopathy: None. Pelvic viscera: The bladder is decompressed and grossly unremarkable. The uterus is surgically absent. No adnexal lesion is seen. There is a small volume of free fluid in the cul-de-sac. Skeletal structures: No lytic or blastic lesions are seen. IMPRESSION: 1. There are distal obstructing ureteral calculi seen bilaterally as detailed above which measure up to 4 mm. This causes bilateral (right greater than left) hydroureteronephrosis. 2. Additional nonobstructing renal calculi are seen bilaterally. 3. The right kidney is enlarged and heterogeneous. There are foci of nonspecific subcapsular hyperdensity. A tiny subcapsular hemorrhage is not excluded. 4. Trace pleural effusions with dependent atelectasis. 5. Colonic diverticulosis without CT evidence of acute diverticulitis. 6. Trace free fluid in the pelvis is nonspecific and may be physiologic. 7. Additional findings as above. ACT 112: Negative or not required by law. Electronically signed by: Jose Lunsford M.D. 06/19/2023 8:06 AM Chest X-Ray 06/19/23 06:43 SINGLE VIEW CHEST CLINICAL HISTORY: Sepsis. FINDINGS: An AP, portable, upright chest radiograph is compared to study dated 04/02/2020. The examination is degraded by portable technique and apical lordotic positioning. The cardiomediastinal silhouette is unremarkable. Chronic i nterstitial thickening similar to previous. There is mild bibasilar scarring/atelectasis. The lungs and pleural spaces are otherwise clear. No pneumothorax is seen. The skeletal structures are osteopenic. The bony thorax is grossly intact. Calcific tendinopathy is noted in the right shoulder. IMPRESSION: No active disease in the chest. ACT 112: Negative or not required by law. Electronically signed by: Jose Lunsford M.D. 06/19/2023 7:27 AM ECG Data Attestation: I personally reviewed and interpreted this ECG as follows: Indication: + weakness Rate (beats per minute): 81 Rhythm: + normal sinus ECG Intervals/blocks: + Normal QRS, + Normal QT and + Normal AR ECG [place]: + Normal ECG ST segments: + Normal ST segments Comparison ECG Date: from (04/22/21) Change: no significant change MDM Narrative This patient comes in as scribed above she has been having fever and flulike symptoms off and on for several days. That she does have a right hydronephrosis on ultrasound yesterday has history of obstructive kidney stones. IV access was tablet she did a full sepsis type work-up which included blood cultures and lactic acid. She was hydrated initially with 1 L normal saline bolus and was given Rocephin 2 g IV. I also obtained a CAT scan of her abdomen and pelvis as well as a chest x-ray. Urinalysis was obtained as well. She was reassessed frequently. Chest x-ray was clear and did not show congestive heart failure, pneumonia, pneumothorax. White count was elevated at 13,000. EKG shows no significant arrhythmia or anything to suggest ischemia. Her lactic acid is also mildly elevated as is her procalcitonin. She was given a second 1 L normal saline bolus IV. This will amount to more than 30/kg of normal saline. Her CAT scan shows bilateral obstructive or uropathy her urine out urinalysis does suggest a UTI although there are some epithelial cells as well. I did consult Dr. Ambrosio who is going to see her in the ER with likely stent placement in the OR. I also consulted the [facility] medical team and discussed case with Dr. Nunez. The patient's lactate on the repeat came back at 1.4 and thus she is zak aring. Her blood pressure is in the 90s however she looks great, she is nontachycardic and she is very slender. Looking back through her chart she does tend to run low. They will be admitting her with plans on taking her to the OR. Continuous cardiac monitoring: Orders placed in EMR for continuous cardiac monitoring: Upon my evaluation patient was noted to be in normal sinus rhythm with a rate of 77 Impression & Plan Sepsis, Acute bilateral obstructive uropathy, Flu-like symptoms, Liver cyst, Kidney stone on left side, Right kidney stone Discharge Plan Visit Data Chief Complaint: Illness Stated Complaint: FEVER,NAUSEA,ACHES ED Provider: Harman Bravo Discharge Problem: Sepsis, Acute bilateral obstructive uropathy, Flu-like symptoms, Liver cyst, Kidney stone on left side, Right kidney stone Sepsis Qualifiers: Sepsis type: sepsis due to unspecified organism Sepsis acute organ dysfunction status: unspecified Qualified Code(s): A41.9 - Sepsis, unspecified organism
[2023-06-19 07:13] LABS: Basophils # (auto) 0.03 K/uL (0.00-0.20); Basophils % (auto) 0.2 %; Hematocrit (blood only) 34.3 % (37.0-47.0); Hemoglobin 11.5 g/dl (12.0-16.0); Immature Granulocytes # (auto) 0.09 K/uL (0.01-0.20); Immature Granulocytes % (auto) 0.7 %; Lymphocytes # (auto) 0.58 K/uL (1.20-3.40); Lymphocytes % (auto) 4.2 %; Mean Corpuscular Hemoglobin 31.4 pg (25.0-34.0); Mean Corpuscular Hgb Conc 33.5 g/dL (32.0-36.0); Mean Corpuscular Volume 93.7 fL (80.0-100.0); Mean Platelet Volume 10.2 fL (9.4-12.4); Monocytes # (auto) 1.06 K/uL (0.11-0.59); Monocytes % (auto) 7.7 %; Neutrophils # (auto) 11.97 K/uL (1.40-6.50); Neutrophils % (auto) 87.2 %; Platelet Count 151 K/uL (130-400); RDW Standard Deviation 41.4 fL (36.4-46.3); Red Blood Count 3.66 M/uL (4.20-5.40); White Blood Count 13.73 K/ul (4.8-10.8)
[2023-06-19 07:24] LABS: Appearance Urine Cloudy (Clear); Bacteria Urine Automated Negative (Negative); Bilirubin Urine Negative (Negative); Blood Urine 1+ (Negative); Color Urine Dark Yellow; Epithelial Cell Urine Auto >30 /lpf (0-5); Glucose Urine UA Negative (Negative); Ketones Urine 1+ (Negative); Leukocyte Esterase Urine 1+ (Negative); Nitrite Urine Negative (Negative); Protein Urine 2+ (Negative); Specific Gravity Urine 1.026 (1.000-1.030); Urobilinogen Urine Negative (Negative); WBC Urine Automated >30 /hpf (0-5)
--- NOTE | 2023-06-19 07:29 | XRay Report ---
SINGLE VIEW CHEST CLINICAL HISTORY: Sepsis. FINDINGS: An AP, portable, upright chest radiograph is compared to study dated 04/02/2020. The examina tion is degraded by portable technique and apical lordotic positioning. The cardiomediastinal silhoue tte is unremarkable. Chronic interstitial thickening similar to previous. There is mild bibasilar sca rring/atelectasis. The lungs and pleural spaces are otherwise clear. No pneumothorax is seen. The ske letal structures are osteopenic. The bony thorax is grossly intact. Calcific tendinopathy is noted in the right shoulder. IMPRESSION: No active disease in the chest. ACT 112: Negative or not required by law. Electronically signed by: Jose Lunsford M.D. 06/19/2023 7:27 AM
[2023-06-19 07:31] LABS: Albumin Level 3.4 gm/dl (3.4-5.0); BUN Creatinine Ratio 27.2 (10-20); Bilirubin Direct 0.2 mg/dl (0-0.2); Bilirubin,Total 0.4 mg/dl (0.2-1.0); Calcium 9.3 mg/dl (8.6-10.3); Creatinine Clr Calc Pharmacy 61.6 ml/min; Est GFR (African American) 81.2 ml/min; Est GFR (Non-African American) 70.1 ml/min; Magnesium 1.9 mg/dl (1.7-2.4); Potassium 4.2 mmol/L (3.5-5.1); Total Protein 6.6 gm/dl (6.0-8.3)
[2023-06-19] MEDS ORDERED: SODIUM CHLORIDE 0.9% 1,000 ML IV ONE (07:40)
[2023-06-19 07:45] LABS: Mucus Urine Present (None Prsent)
--- NOTE | 2023-06-19 08:09 | CT Scan Report ---
CT SCAN OF THE ABDOMEN AND PELVIS WITHOUT IV CONTRAST CLINICAL HISTORY: Generalized abdominal pain. COMPARISON STUDY: Abdominal CT dated 09/11/2021. TECHNIQUE: CT scan of the abdomen and pelvis is performed from the lung bases to the proximal femora. Images are reviewed in the axial, sagittal, and coronal planes. IV contrast was not administered for this examination. A dose lowering technique was utilized adhering to the principles of ALARA. CT DOSE: 908.09 mGy.cm FINDINGS: Lung bases: The heart is normal in size and without pericardial effusion. There are trace pleural eff usions with dependent atelectasis. Liver: The unenhanced liver is normal in size, contour, and attenuation. There is no intrahepatic behzad iary ductal dilatation. Large hepatic cysts are similar to previous. The largest arises from the infe rior right lobe and measures up to 14.5 cm. The large calcified granuloma is seen in the dome of live r. Gallbladder: Surgically absent noting clips in the gallbladder fossa. Spleen: Normal in size and attenuation. Pancreas: Unremarkable. Adrenal glands: Unremarkable. Kidneys: The right kidney is enlarged and edematous. There are at least 2 obstructing calculi at the right vesicoureteral junction which measure up to 4 mm. This causes mild to moderate right hydrourete ronephrosis. An additional 2 mm calculus is seen in the distal right ureter on image #[id number]. There are at least 3 small obstructing calculi in the distal left ureter which measure up to 3 mm. This causes mild hydroureteronephrosis on the left. There are least 2 additional nonobstructing calculi present i n both kidneys which measure up to 4 mm. Perihilar stranding is seen bilaterally. As noted above, the right kidney is enlarged and heterogeneous. There is ill-defined subcapsular hyperdensity. Trace sub capsular hemorrhage is not excluded. There is no evidence of contour deforming renal mass lesion. Abdominal vasculature: The abdominal aorta is normal in course and caliber. Stomach and bowel: Postsurgical changes consistent with a Armando-en-Y gastric bypass procedure. No anmol l obstruction is seen. There is mild to moderate colonic diverticulosis without CT evidence of acute diverticulitis. The appendix is well-visualized and normal. Peritoneum: There is no intraperitoneal free air or abdominal ascites. Lymphadenopathy: None. Pelvic viscera: The bladder is decompressed and grossly unremarkable. The uterus is surgically absent . No adnexal lesion is seen. There is a small volume of free fluid in the cul-de-sac. Skeletal structures: No lytic or blastic lesions are seen. IMPRESSION: 1. There are distal obstructing ureteral calculi seen bilaterally as detailed above which measure up to 4 mm. This causes bilateral (right greater than left) hydroureteronephrosis. 2. Additional nonobstructing renal calculi are seen bilaterally. 3. The right kidney is enlarged and heterogeneous. There are foci of nonspecific subcapsular hyperden sity. A tiny subcapsular hemorrhage is not excluded. 4. Trace pleural effusions with dependent atelectasis. 5. Colonic diverticulosis without CT evidence of acute diverticulitis. 6. Trace free fluid in the pelvis is nonspecific and may be physiologic. 7. Additional findings as above. ACT 112: Negative or not required by law. Electronically signed by: Jose Lunsford M.D. 06/19/2023 8:06 AM
[2023-06-19 08:27] LABS: Influenza A virus by PCR Negative (Neg); Influenza B virus by PCR Negative (Neg); RSV by PCR Negative (Neg); SARS CoV2 RNA(COVID-19) Ceph NEGATIVE (Negative)
--- NOTE | 2023-06-19 08:50 | Urology Consultation ---
Date of Consultation June 19, 2023 Assessment & Plan (1) Nephrolithiasis: (2) Sepsis: (3) Acute UTI: Plan We reviewed the results of her CT scan, specifically that she has bilateral ureteral stones. She is still making some urine so she is not completely obstructed, however there is also concern of possible urinary tract infection and sepsis of urological origin. In light of these findings, I recommended that we proceed with cystoscopy, bilateral retrograde pyelogram and bilateral ureteral stent placement under anesthesia. We discussed risks and benefits of the surgery including risks of bleeding, infection, injury to the urinary tract, need for additional procedur es, inability to place stents. She expressed understanding and willingness to proceed with surgery. History of Present Illness Reason for Consultation: Bilateral ureteral stones Attending Physician: Harman Bravo MD History of Present Illness This is a 53-year-old female who presented to the emergency department on 06/19/2023 with fever and body aches. She had fevers at home up to 102.4 with mild improvement with Tylenol. She has also had some nausea and dry heaves. Work-up in the ED was notable for mild leukocytosis (WBC 13.73). Hemoglobin was slightly decreased at 11.5. Creatinine was normal at 0.92. Lactate was somewhat elevated at 2.7. Urinalysis demonstrated 1+ blood, negative nitrites, 1+ leukocyte esterase. She was negative for COVID and influenza. Urine and blood cultures are pending. A CT scan was performed. I independently reviewed these images. Both kidneys are in normal position. There is bilateral hydronephrosis as well as some punctate stones in each kidney. She has small obstructing stones in bilateral ureters (largest is 4 mm). Her bladder appears grossly normal. Radiology comments on the possibility of a tiny subcapsular hemorrhage of the right kidney. Urology was consulted for bilateral ureteral stones. At the bedside, she is feeling somewhat unwell. She has a history of stones and has had surgical intervention and stents in the past. Allergies Allergy/AdvReac Type Severity Reaction Status Date / Time sulfamethoxazole Allergy Intermediate itching , Verified 06/19/23 08:35 [From Bactrim] rash, welts trimethoprim [From Bactrim] Allergy Intermediate itching , Verified 06/19/23 08:35 rash, welts adhesive Allergy Unknown ITCHING Verified 06/19/23 08:35 ibuprofen AdvReac Unknown Unknown Verified 06/19/23 08:35 Home Medications Medication Instructions Recorded Confirmed Type cholecalciferol (vitamin D3) 50 2,000 unit PO QAM 03/27/19 06/19/23 History mcg (2,000 unit) capsule (Vitamin D3) cyanocobalamin (vitamin B-12) 1,000 mcg PO QAM 03/21/20 06/19/23 History 1,000 mcg tablet (Vitamin B-12) calcium citrate 250 mg PO BID 04/02/20 06/19/23 History conjugated estrogens 0.625 mg/gram 0.625 mg vaginal 2XWK 04/11/21 06/19/23 History vaginal cream (Premarin) potassium citrate 10 mEq (1,080 10 meq PO QAM 04/11/21 06/19/23 History mg) tablet,extended release multivitamin 1 tab PO BID 05/02/21 06/19/23 History nitrofurantoin 100 mg PO Q12H 4 days #8 caps 09/17/21 06/19/23 Rx monohydrate/macrocrystals 100 mg capsule (Macrobid) citalopram 10 mg tablet (Celexa) 10 mg PO QAM #90 tabs 12/11/22 06/19/23 Rx cyclosporine 0.05 % eye drops in a 1 drp ophthalmic (eye) BID 06/19/23 06/19/23 History dropperette (Restasis) semaglutide (weight loss) 0.25 0.25 mg subcut WK 06/19/23 06/19/23 History mg/0.5 mL subcutaneous pen injector (Wegovy) Patient History Medical History Anxiety History of basal cell carcinoma s/p removal /Mohs surgery Kidney stones No current issues Nocturnal hypoxia Hx of - improved with weight loss. Hx of sleep study- no HECTOR. No oxygen needed Surgical History H/O gastric bypass 09/2019 History of abdominoplasty History of bilateral breast reduction surgery History of cholecystectomy History of colonoscopy History of cystoscopy History of dilatation and curettage 11/08/2017. General with LMA #4. No issues. History of endometrial ablation History of esophagogastroduodenoscopy (EGD) History of lithotripsy X5 - Usually LMA #4 05/14/17: MAC #3, ETT #7.5, HiLo Oral, Grade 1 View History of wisdom tooth extraction Hx of LASIK B/L Nausea and vomiting after administration of anesthetic agent Status post Mohs surgery for basal cell carcinoma Right hoahaoism Family History Father Family history of diabetes mellitus Other No family history of adverse response to anesthesia Denies family history of Ovarian cancer Prostate cancer Myocardial infarction Breast cancer Colorectal cancer Stroke Social History Smoking Status: Never smoker Second Hand Exposure: No; Do You Dip or Chew Tobacco: No; Hx Alcohol Use: No Hx Substance Use: No Preferred Language: Uzbek Communication Ability: Effective Visual Impairment: No Limitations Hearing Ability: Normal Battery Hand Required: No Beliefs That Will Affect Care: None marital status: Current Living Situation: Spouse current occupational status: employed Feels Safe at Home: Yes Childhood Exposure to Second-Hand Smoke: Yes Diet: regular caffeine: Yes during the past year weight has: remained stable Dental Care, Regularly: Yes Physical Activity Frequency: Does not Exercise Seatbelt Use: always Sunscreen Use: Yes Assistive Devices: None Review of Systems Review of Systems: 12 point review of systems negative except for otherwise indicated. Physical Exam Physical Exam: Fatigued appearing Constitutional: well developed and well nourished; no acute distress Eyes: + anicteric sclerae; pupils not irregular Respiratory: normal respiratory effort; no respiratory distress, does not use accessory muscles and no cough Cardiovascular: well perfused Gastrointestinal (Abdomen): Inspection/Auscultation: abdomen normal to inspection; abdomen not distended Musculoskeletal: Extremities: extremities normal to inspection Skin: normal turgor; no rashes and no lesions Neurologic: moves all extremities and awake Psychiatric: Orientation: alert and oriented x 3 Results & Data Vital Signs (Past 12 Hours) Vital Signs Temp Pulse Pulse Resp BP BP Pulse Ox 06/19/23 08:08 71 06/19/23 08:07 73 16 98 06/19/23 08:05 37.1 C 70 12 95/57 L 99 06/19/23 06:01 37.3 C 99 H 18 129/67 95 O2 Del Method O2 Flow Rate 06/19/23 08:08 06/19/23 08:07 Room Air 0 06/19/23 08:05 Room Air 06/19/23 06:01 Room Air PG Care Time/CCT Total # of Minutes Spent Total Time Spent with Patient: Total time spent is greater than 50% in coordination of care (as documented) at patient's floor/unit and/or counseling patient: Coding Level of Care Code 99717 OFFICE CONSULT LVL M Diagnoses Nephrolithiasis N20.0 Sepsis A41.9 Sepsis acute organ dysfunction status: unspecified Sepsis type: sepsis due to unspecified organism Acute UTI N39.0 (2) Sepsis Sepsis acute organ dysfunction status: unspecified Sepsis type: sepsis due to unspecified organism Qualified Code(s): A41.9 - Sepsis, unspecified organism
--- NOTE | 2023-06-19 09:11 | History & Physical Report ---
Date of Service June 19, 2023 Assessment & Plan (1) Acute UTI: Plan: Urine and blood cultures pending. Continue Rocephin (2) Nephrolithiasis: Plan: Bilateral obstructing ureteral calculi. Urology consultation appreciated. Bilateral ureteral stent placement later today, June 19 (3) Hydronephrosis concurrent with and due to calculi of kidney and ureter: Plan: Right greater than left. Bilateral ureter stents will be placed later today (4) Dyslipidemia: Plan: Stable. Continue current medical management Plan Hopeful discharge to home soon on oral antibiotic History of Present Illness Chief Complaint: Fever Primary Care Provider: Kathie Unger MD 53-year-old female with a history of nephrolithiasis. She presents with fever. She is found to have bilateral obstructing ureteral calculi but not much pain. CT scan reveals bilateral hydronephrosis, right greater than left. Urology has been consulted and has seen her. She will receive bilateral ureter stents later today, June 19. IV fluids and IV Rocephin have been ordered Allergies Allergy/AdvReac Type Severity Reaction Status Date / Time sulfamethoxazole Allergy Intermediate itching , Verified 06/19/23 08:35 [From Bactrim] rash, welts trimethoprim [From Bactrim] Allergy Intermediate itching , Verified 06/19/23 08:35 rash, welts adhesive Allergy Unknown ITCHING Verified 06/19/23 08:35 ibuprofen AdvReac Unknown Unknown Verified 06/19/23 08:35 Home Medications Medication Instructions Recorded Confirmed Type cholecalciferol (vitamin D3) 50 2,000 unit PO QAM 03/27/19 06/19/23 History mcg (2,000 unit) capsule (Vitamin D3) cyanocobalamin (vitamin B-12) 1,000 mcg PO QAM 03/21/20 06/19/23 History 1,000 mcg tablet (Vitamin B-12) calcium citrate 250 mg PO BID 04/02/20 06/19/23 History conjugated estrogens 0.625 mg/gram 0.625 mg vaginal 2XWK 04/11/21 06/19/23 History vaginal cream (Premarin) potassium citrate 10 mEq (1,080 10 meq PO QAM 04/11/21 06/19/23 History mg) tablet,extended release multivitamin 1 tab PO BID 05/02/21 06/19/23 History nitrofurantoin 100 mg PO Q12H 4 days #8 caps 09/17/21 06/19/23 Rx monohydrate/macrocrystals 100 mg capsule (Macrobid) citalopram 10 mg tablet (Celexa) 10 mg PO QAM #90 tabs 12/11/22 06/19/23 Rx cyclosporine 0.05 % eye drops in a 1 drp ophthalmic (eye) BID 06/19/23 06/19/23 History dropperette (Restasis) semaglutide (weight loss) 0.25 0.25 mg subcut WK 06/19/23 06/19/23 History mg/0.5 mL subcutaneous pen injector (Wegovy) Past Med/Surg History Medical History Anxiety History of basal cell carcinoma s/p removal /Mohs surgery Kidney stones No current issues Nocturnal hypoxia Hx of - improved with weight loss. Hx of sleep study- no HECTOR. No oxygen needed Surgical History H/O gastric bypass 09/2019 History of abdominoplasty History of bilateral breast reduction surgery History of cholecystectomy History of colonoscopy History of cystoscopy History of dilatation and curettage 11/08/2017. General with LMA #4. No issues. History of endometrial ablation History of esophagogastroduodenoscopy (EGD) History of lithotripsy X5 - Usually LMA #4 05/14/17: MAC #3, ETT #7.5, HiLo Oral, Grade 1 View History of wisdom tooth extraction Hx of LASIK B/L Nausea and vomiting after administration of anesthetic agent Status post Mohs surgery for basal cell carcinoma Right catholic Family History Father Family history of diabetes mellitus Other No family history of adverse response to anesthesia Denies family history of Ovarian cancer Prostate cancer Myocardial infarction Breast cancer Colorectal cancer Stroke Social History Smoking Status: Never smoker Second Hand Exposure: No; Do You Dip or Chew Tobacco: No; Hx Alcohol Use: No Hx Substance Use: No Preferred Language: Portuguese Communication Ability: Effective Visual Impairment: No Limitations Hearing Ability: Normal Factory Worker Required: No Beliefs That Will Affect Care: None marital status: Current Living Situation: Spouse current occupational status: employed Feels Safe at Home: Yes Childhood Exposure to Second-Hand Smoke: Yes Diet: regular caffeine: Yes during the past year weight has: remained stable Dental Care, Regularly: Yes Physical Activity Frequency: Does not Exercise Seatbelt Use: always Sunscreen Use: Yes Assistive Devices: None Review of Systems Review of Systems: Constitutional- fever and chills ENT-no blurred vision, no double vision, no epistaxis, no sore throat Respiratory-no cough, no wheezing, no shortness of breath Cardiac-no palpitations, no chest pain, no syncope GI-no nausea, vomiting, diarrhea, melena, hematochezia -no urinary retention, no urinary incontinence, no dysuria, no hematuria Musculoskeletal-no joint pain, no muscle tenderness Skin-no bruising, no rashes, no pruritus Neuro-no isolated weakness, no paresthesia, no weakness Psych-no depression, no anxiety Physical Exam Physical Exam: General-alert and oriented x3, she has had fever and chills HEENT-head atraumatic and normocephalic, pupils equal and reactive to light, extraocular muscles intact Neck-no lymphadenopathy or thyromegaly, trachea midline Chest-clear to auscultation percussion. No rales wheezing or rhonchi Cardiac-regular rate and rhythm, normal S1 and S2 Abdomen-normal bowel sounds, nontender, no hepatosplenomegaly Extremities-no cyanosis, clubbing, or edema Neuro-cranial nerves II through XII intact, motor and sensory function within normal limits, strength symmetrical , no focal deficits Psych-normal affect, normal mood Results & Data Results & Data Vital Signs (Past 12 Hours) Vital Signs Temp Pulse Pulse Resp BP BP Pulse Ox 06/19/23 08:08 71 06/19/23 08:07 73 16 98 06/19/23 08:05 37.1 C 70 12 95/57 L 99 06/19/23 06:01 37.3 C 99 H 18 129/67 95 O2 Del Method O2 Flow Rate 06/19/23 08:08 06/19/23 08:07 Room Air 0 06/19/23 08:05 Room Air 06/19/23 06:01 Room Air Laboratory Results 06/19/23 06:30 06/19/23 06:30 PG Care Time/CCT Total # of Minutes Spent Total Time Spent with Patient: Total time spent is greater than 50% in coordination of care (as documented) at patient's floor/unit and/or counseling patient: Coding Level of Care Code 85805 INT INP/OBS CARE 3/75MIN Diagnoses Acute UTI N39.0 Nephrolithiasis N20.0 Hydronephrosis concurrent with and due to calculi of kidney and ureter N13.2 Dyslipidemia E78.5
--- NOTE | 2023-06-19 10:22 | Anesthesiology Consultation ---
Date of Service June 19, 2023 Assessment & Plan Chart Review Chart Review: Acceptable Risk for Surgery and Patient NOT seen in Pre Admission Testing Consults Requested none ASA [id number] Proposed Anesthesia Anesthesia Type: General History Surgery Operation Date: 06/19/23 10:30 Proposed Procedures p Cystoscopy - Don Ambrosio MD Height/Weight Height: 5 ft 2 in Weight: 69 kg Allergies Allergy/AdvReac Type Severity Reaction Status Date / Time sulfamethoxazole Allergy Intermediate itching , Verified 06/19/23 08:35 [From Bactrim] rash, welts trimethoprim [From Bactrim] Allergy Intermediate itching , Verified 06/19/23 08:35 rash, welts adhesive Allergy Unknown ITCHING Verified 06/19/23 08:35 ibuprofen AdvReac Unknown Unknown Verified 06/19/23 08:35 Medications Home Medications Medication Instructions Recorded Confirmed Last Taken cholecalciferol (vitamin D3) 50 2,000 unit PO QAM 03/27/19 06/19/23 06/16/23 mcg (2,000 unit) capsule (Vitamin D3) cyanocobalamin (vitamin B-12) 1,000 mcg PO QAM 03/21/20 06/19/23 06/16/23 1,000 mcg tablet (Vitamin B-12) calcium citrate 250 mg PO BID 04/02/20 06/19/23 06/16/23 conjugated estrogens 0.625 mg/gram 0.625 mg vaginal 2XWK 04/11/21 06/19/23 06/16/23 vaginal cream (Premarin) potassium citrate 10 mEq (1,080 10 meq PO QAM 04/11/21 06/19/23 06/16/23 mg) tablet,extended release multivitamin 1 tab PO BID 05/02/21 06/19/23 06/16/23 nitrofurantoin 100 mg PO Q12H 4 days #8 caps 09/17/21 06/19/23 06/16/23 monohydrate/macrocrystals 100 mg capsule (Macrobid) citalopram 10 mg tablet (Celexa) 10 mg PO QAM #90 tabs 12/11/22 06/19/23 06/16/23 cyclosporine 0.05 % eye drops in a 1 drp ophthalmic (eye) BID 06/19/23 06/19/23 06/16/23 dropperette (Restasis) semaglutide (weight loss) 0.25 0.25 mg subcut WK 06/19/23 06/19/23 06/12/23 mg/0.5 mL subcutaneous pen injector (Jose Alberto) Past Medical History Medical History Anxiety History of basal cell carcinoma s/p removal /Mohs surgery Kidney stones No current issues Nocturnal hypoxia Hx of - improved with weight loss. Hx of sleep study- no HECTOR. No oxygen needed Exercise / Class Metabolic Activity II 4-5 Yardwork/Stairs/Walk up hill Past Family History Family History Father Family history of diabetes mellitus Other No family history of adverse response to anesthesia Denies family history of Ovarian cancer Prostate cancer Myocardial infarction Breast cancer Colorectal cancer Stroke Past Surgical History Surgical History H/O gastric bypass 09/2019 History of abdominoplasty History of bilateral breast reduction surgery History of cholecystectomy History of colonoscopy History of cystoscopy History of dilatation and curettage 11/08/2017. General with LMA #4. No issues. History of endometrial ablation History of esophagogastroduodenoscopy (EGD) History of lithotripsy X5 - Usually LMA #4 05/14/17: MAC #3, ETT #7.5, HiLo Oral, Grade 1 View History of wisdom tooth extraction Hx of LASIK B/L Nausea and vomiting after administration of anesthetic agent Status post Mohs surgery for basal cell carcinoma Right taoism Past Anesthesia History No Hx of Anesthesia Complications and No Family Hx of Anesthesia Complications History of PONV No Hx of PONV and No Hx of Motion Sickness Social History Smoking Status: Never smoker Do You Dip or Chew Tobacco: No Hx Alcohol Use: No Alcohol type: beer alcohol intake frequency: holidays/special occasions only Hx Substance Use: No substance use type: does not use Physical Exam Vital Signs Last Vital Signs Temp 37.1 C 06/19/23 08:05 Pulse 73 06/19/23 10:00 Resp 20 06/19/23 10:00 BP 89/49 L 06/19/23 10:00 Pulse Ox 98 06/19/23 10:00 O2 Del Method Room Air 06/19/23 09:30 O2 Flow Rate 0 06/19/23 08:07 Testing Laboratory Results 06/19/23 06:30 06/19/23 06:30 Urine Color Dark Yellow 06/19/23 06:30 Urine Appearance Cloudy (Clear) A 06/19/23 06:30 Urine pH 6.0 (4.5-7.5) 06/19/23 06:30 Ur Specific Kerrick 1.026 (1.000-1.030) 06/19/23 06:30 Urine Protein 2+ (Negative) H 06/19/23 06:30 Urine Glucose (UA) Negative (Negative) 06/19/23 06:30 Urine Ketones 1+ (Negative) H 06/19/23 06:30 Urine Nitrite Negative (Negative) 06/19/23 06:30 Ur Leukocyte Esterase 1+ (Negative) H 06/19/23 06:30 Urine WBC (Auto) >30 /hpf (0-5) H 06/19/23 06:30 Urine RBC (Auto) 5-10 /hpf (0-4) H 06/19/23 06:30 U Hyaline Cast (Auto) 1-5 /lpf (0-5) 06/19/23 06:30 U Epithel Cells (Auto) >30 /lpf (0-5) H 06/19/23 06:30 Urine Bacteria (Auto) Negative (Negative) 06/19/23 06:30 Electrocardiogram Date: 06/19/23 Findings: + NSR @ (@ 81;low voltage QRS) Chest X-Ray Date: 06/19/23 Findings: + NAD Echocardiogram Date: 04/07/19 EF: 60% LV Function: normal RWMA: + none Valvular Disease: + no significant valvular disease
[2023-06-19] MEDS ORDERED: ARTIFICIAL TEARS OPB PRN (11:13)
[2023-06-19] MEDS ORDERED: MIDAZOLAM HCL 1 MG/ML 2ML VIAL ONE (11:25)
[2023-06-19] MEDS ORDERED: PROPOFOL IV EMULSION 10 MG/ML 20 ML VIAL IV ONE (11:25)
[2023-06-19] MEDS ORDERED: fentaNYL citrate PF 100 MCG/2 ML VIAL ONE (11:25)
[2023-06-19] MEDS: ACETAMINOPHEN 1,000 MG/100 ML VIAL IV PRN (11:25)
[2023-06-19] MEDS ORDERED: LIDOCAINE 2% 2 ML VIAL/AMP(20MG/ML) INFIL ONE (11:25)
[2023-06-19] MEDS ORDERED: ONDANSETRON INJ 2 MG/ML 2 ML VIAL ONE (11:25)
--- NOTE | 2023-06-19 11:25 | Electrocardiogram Report ---
Test Reason : Blood Pressure : / mmHG Vent. Rate : 081 BPM Atrial Rate : 081 BPM P-R Int : 122 ms QRS Dur : 080 ms QT Int : 358 ms P-R-T Axes : 018 023 052 degrees QTc Int : 415 ms Normal sinus rhythm Low voltage QRS Poor R wave progression, consider anterior TX vs. lead placement vs. LVH Abnormal ECG When compared with ECG of 22-APR-2021 14:49, Vent. rate has increased BY 29 BPM T wave amplitude has decreased in Anterior leads Confirmed by Mello Philip ([id number]) on 06/19/2023 11:25:47 AM Referred By: REFERRED SELF Confirmed By:Mello Philip
[2023-06-19 11:35] LABS: Basophils # (auto) 0.04 K/uL (0.00-0.20); Basophils % (auto) 0.3 %; Eosinophils # (auto) 0.03 K/uL (0.00-0.50); Eosinophils % (auto) 0.2 %; Hemoglobin 12.5 g/dl (12.0-16.0); Immature Granulocytes # (auto) 0.08 K/uL (0.01-0.20); Immature Granulocytes % (auto) 0.7 %; Lymphocytes # (auto) 0.85 K/uL (1.20-3.40); Mean Corpuscular Hemoglobin 31.6 pg (25.0-34.0); Mean Corpuscular Hgb Conc 32.1 g/dL (32.0-36.0); Mean Corpuscular Volume 98.5 fL (80.0-100.0); Monocytes # (auto) 0.81 K/uL (0.11-0.59); Monocytes % (auto) 6.7 %; Neutrophils # (auto) 10.28 K/uL (1.40-6.50); Neutrophils % (auto) 85.1 %; Platelet Count 148 K/uL (130-400); RDW Standard Deviation 43.8 fL (36.4-46.3); Red Blood Count 3.96 M/uL (4.20-5.40); White Blood Count 12.09 K/ul (4.8-10.8)
[2023-06-19 11:46] LABS: Calcium 8.6 mg/dl (8.6-10.3); Potassium 4.4 mmol/L (3.5-5.1)
[2023-06-19 11:52] LABS: BUN Creatinine Ratio 29.3 (10-20); Est GFR (Non-African American) 89.7 ml/min
[2023-06-19] MEDS ORDERED: PROMETHAZINE HCL 12.5 MG in SODIUM CHLORIDE 0.9% 50 ML IV PRN (13:09)
[2023-06-19] MEDS ORDERED: LABETALOL HCL IV 5 MG/ML 20ML IV PRN (13:09)
[2023-06-19] MEDS ORDERED: ATROPINE SULFATE 0.1 MG/ML 10ML SYR IV PRN (13:09)
[2023-06-19] MEDS ORDERED: ePHEDrine sulfate 50 MG/ML AMP IV PRN (13:09)
[2023-06-19] MEDS ORDERED: FLUMAZENIL 0.1 MG/1 ML 10 ML VIAL IV PRN (13:09)
[2023-06-19] MEDS ORDERED: fentaNYL citrate PF 100 MCG/2 ML VIAL IV PRN (13:09)
[2023-06-19] MEDS ORDERED: ONDANSETRON INJ 2 MG/ML 2 ML VIAL IV PRN (13:09)
[2023-06-19] MEDS ORDERED: NALOXONE HCL 0.4 MG/1 ML VIAL/CARP IV PRN (13:09)
[2023-06-19] MEDS ORDERED: DIATRIZOATE MEGLUMINE 30% 100ML VIAL INSTIL ONE (13:30)
--- NOTE | 2023-06-19 13:34 | Operative Report ---
PG Post Operative Report Pre & Post Diagnosis Operation Date: 06/19/23 10:30 Pre-Op Diagnosis: Nephrolithiasis, Sepsis, Acute UTI Post-Op Diagnosis: Nephrolithiasis, Sepsis, Acute UTI I identified the patient and participated in the time-out.: Yes Procedure Operation Date: 06/19/23 10:30 Actual Procedures p Cystoscopy, Retrograde Pyelogram, Bilateral ureteral stent Placement - Don Ambrosio MD Surgeon Don Ambrosio MD [employer] Economist None Estimated Blood Loss 0 Findings Consistent with Post-Op Diagnosis Specimens None Drains 6 Malaysian by 24 cm double-J ureteral stent, one in each ureter Anesthesia Type MAC Complications none Disposition Accompanied Patient To Recovery: Yes Disposition: Recovery Room Indications This is a 53-year-old female with history of nephrolithiasis. She presented to the ED on 06/19/2023 with weakness. She was found to have bilateral ureteral stones as well as findings concerning for UTI. She presents to the OR today for bilateral ureteral stent placement. Description of Procedure The patient was identified in the holding area and informed consent was confirmed. She was taken to the operating room where anesthesia was initiated. She was placed in the dorsal lithotomy position with all pressure points appropriately padded. She was prepped and draped in the usual sterile fashion and a preoperative timeout was performed. A well-lubricated cystoscope was inserted per urethra and panendoscopy was performed. The urethra was normal in appearance. The bladder was of normal size with ureteral orifices in orthotopic position. The right ureteral orifice was identified. I attempted to cannulate this with a 5 Malaysian open-ended catheter however there is some edema. The UO was cannulated with a 0.038 inch zip wire which advanced up to the kidney easily under fluoroscopic guidance. Over the wire, a 6 Malaysian x 24 centimeter double-J ureteral stent was advanced. When the wire was removed, the proximal curl was visualized in the kidney with x-ray, and the distal curl visualized in the bladder with the cystoscope. I turned my attention to the left side. The left ureteral orifice was cannulated with a 5 Malaysian open-ended catheter. Retrograde pyelogram was performed identifying some filling defects in the distal ureter consistent with her known stones. There is mild hydronephrosis. The zip wire was then advanced up to the left kidney under fluoroscopic guidance. In a similar fashion a 6 Malaysian by 24 cm double-J ureteral stent was advanced to the left kidney. The proximal curl was positioned in the renal pelvis and the distal curl was visualized in the bladder with the cystoscope. At this point the bladder was drained and all instrumentation was removed. The patient was then awakened from anesthesia and was brought to the PACU in stable condition. I attest to the content of the Intraoperative Record and any orders documented therein. Any exceptions are noted below.
--- NOTE | 2023-06-19 14:01 | Anesthesiology Progress Note ---
Date of Service June 19, 2023 Anesthesia Post Procedure Vital Signs Vital Signs: Temp Pulse Pulse Pulse Resp BP BP 06/19/23 13:55 76 17 97/52 L 06/19/23 13:45 74 20 102/51 L 06/19/23 13:39 37.0 C 84 13 85/49 L 06/19/23 11:48 39.2 C H 06/19/23 11:03 38.9 C H 06/19/23 10:54 37.2 C 97 H 18 107/69 06/19/23 10:00 73 20 89/49 L 06/19/23 09:45 99/60 L 06/19/23 09:30 73 17 87/50 L 06/19/23 09:11 74 14 93/60 L 06/19/23 08:08 71 06/19/23 08:07 73 16 06/19/23 08:05 37.1 C 70 12 95/57 L 06/19/23 06:01 37.3 C 99 H 18 129/67 Pulse Ox O2 Del Method O2 Flow Rate 06/19/23 13:55 96 Room Air 06/19/23 13:45 96 Room Air 06/19/23 13:39 95 Room Air 06/19/23 11:48 06/19/23 11:03 06/19/23 10:54 96 Room Air 06/19/23 10:00 98 06/19/23 09:45 06/19/23 09:30 97 Room Air 06/19/23 09:11 99 Room Air 06/19/23 08:08 06/19/23 08:07 98 Room Air 0 06/19/23 08:05 99 Room Air 06/19/23 06:01 95 Room Air Pain Intensity Left Neck: Pain Intensity: 4 Transfer of Care Handoff Completed per policy Notes Mental Status: alert / awake / arousable Patient Amnestic to Procedure: Yes Nausea / Vomiting: adequately controlled Pain: adequately controlled Airway Patency, RR, SpO2: stable & adequate BP & HR: stable & adequate Hydration State: stable & adequate Anesthetic Complications: no major complications apparent
--- NOTE | 2023-06-19 14:12 | Fluoroscopy Report ---
INTRAOPERATIVE RADIOGRAPHS CLINICAL HISTORY: Bilateral ureteral stent placement. Fluoro time: 16 seconds Ka,r: 2.74 mGy FINDINGS: 4 spot fluoroscopic views of the abdomen are correlated with abdominal CT performed the 06/19/2023. Cholecystectomy clips are noted. The provided images show the proximal and distal end s of bilateral ureteral stents in appropriate position. IMPRESSION: Intraoperative images from bilateral ureteral stent placements. Electronically signed by: Jose Lunsford M.D. 06/19/2023 2:10 PM
[2023-06-19] MEDS ORDERED: NON-FORMULARY MEDICATION (Calcium Citrate 250 mg calcium Tablet) PO SCH (21:00)
[2023-06-20] MEDS: ACETAMINOPHEN 1,000 MG/100 ML VIAL IV PRN (05:46)
[2023-06-20] MEDS ORDERED: cefTRIAXone SODIUM 2,000 MG in DEXTROSE 5% 50 ML IV SCH (08:00)
[2023-06-20 08:21] LABS: Hematocrit (blood only) 33.2 % (37.0-47.0); Hemoglobin 11.1 g/dl (12.0-16.0); Mean Corpuscular Hemoglobin 31.5 pg (25.0-34.0); Mean Corpuscular Hgb Conc 33.4 g/dL (32.0-36.0); Mean Corpuscular Volume 94.3 fL (80.0-100.0); Mean Platelet Volume 10.6 fL (9.4-12.4); Platelet Count 168 K/uL (130-400); RDW Coefficient of Variation 12.1 % (11.5-14.5); RDW Standard Deviation 41.9 fL (36.4-46.3); Red Blood Count 3.52 M/uL (4.20-5.40); White Blood Count 10.66 K/ul (4.8-10.8)
[2023-06-20 08:41] LABS: BUN Creatinine Ratio 26.4 (10-20); Calcium 8.7 mg/dl (8.6-10.3); Creatinine Clr Calc Pharmacy 80.2 ml/min; Est GFR (African American) 109.3 ml/min; Est GFR (Non-African American) 94.3 ml/min; Potassium 3.9 mmol/L (3.5-5.1)
[2023-06-20 08:44] LABS: Basophils # (auto) 0.01 K/uL (0.00-0.20); Basophils % (auto) 0.1 %; Immature Granulocytes # (auto) 0.12 K/uL (0.01-0.20); Immature Granulocytes % (auto) 1.1 %; Lymphocytes # (auto) 1.37 K/uL (1.20-3.40); Lymphocytes % (auto) 12.9 %; Monocytes % (auto) 10.3 %; Neutrophils # (auto) 8.06 K/uL (1.40-6.50); Neutrophils % (auto) 75.6 %
[2023-06-20] MEDS ORDERED: POTASSIUM CITRATE 10 MEQ TAB PO SCH (09:00)
[2023-06-20] MEDS ORDERED: CITALOPRAM 20 MG TAB PO SCH (09:00)
[2023-06-20] MEDS ORDERED: CYANOCOBALAMIN (B-12) 500 MCG TABLET PO SCH (09:00)
[2023-06-20] MEDS ORDERED: CHOLECALCIFEROL 1,000 UNITS 25 MCG TAB PO SCH (09:00)
[2023-06-20] MEDS ORDERED: MULTIVITAMIN TAB PO SCH (09:00)
--- NOTE | 2023-06-20 09:25 | Urology Progress Note ---
Date of Service June 20, 2023 Assessment & Plan (1) Acute bilateral obstructive uropathy: Plan: Status post cystoscopy and bilateral stent placement Febrile overnight No significant leukocytosis Creatinine has remained appropriate at 0.7 Continue empiric antibiotics Cultures have not yet identified a pathogen and if we do not identify a definitive pathogen we will ultimately have to make an educated guess for an appropriate oral agent I would like to see you remain afebrile for at least 24 hours before discharge home Ultimately will require outpatient follow-up for definitive stone treatment Admission and Anticipated Discharge Date Admission Date: June 19, 2023 Subjective Still reports that she feels poorly Had fevers overnight and had generalized discomfort She denies any severe left or right flank pain nor significant stent discomfort Cultures have not yet identified underlying pathogenshe remains on empiric ceftriaxone Physical Exam Physical Exam: No rebound, no guarding No severe right or left flank tenderness Results & Data Vital Signs (Past 12 Hours) Vital Signs Temp Pulse Resp BP Pulse Ox O2 Del Method 06/20/23 07:14 37.1 C 86 18 95/65 L 95 Room Air 06/20/23 05:36 39.4 C H PG Care Time/CCT Total # of Minutes Spent Total Time Spent with Patient: Total time spent is greater than 50% in coordination of care (as documented) at patient's floor/unit and/or counseling patient: Coding Level of Care Code 79406 SUB INP/OBS CARE 2/35MIN Diagnoses Acute bilateral obstructive uropathy N13.9
--- NOTE | 2023-06-20 11:18 | Discharge Summary ---
Date of Service June 20, 2023 Admission HPI Per Admitting Provider 53-year-old female with a history of nephrolithiasis. She presents with fever. She is found to have bilateral obstructing ureteral calculi but not much pain. CT scan reveals bilateral hydronephrosis, right greater than left. Urology has been consulted and has seen her. She will receive bilateral ureter stents later today, June 19. IV fluids and IV Rocephin have been ordered Principal Diagnosis Bilateral ureteral calculi with obstruction and bilateral hydronephrosis Discharge Exam General-alert and oriented x3, she has had fever and chills HEENT-head atraumatic and normocephalic, pupils equal and reactive to light, extraocular muscles intact Neck-no lymphadenopathy or thyromegaly, trachea midline Chest-clear to auscultation percussion. No rales wheezing or rhonchi Cardiac-regular rate and rhythm, normal S1 and S2 Abdomen-normal bowel sounds, nontender, no hepatosplenomegaly Extremities-no cyanosis, clubbing, or edema Neuro-cranial nerves II through XII intact, motor and sensory function within normal limits, strength symmetrical , no focal deficits Psych-normal affect, normal mood Discharge Data Allergies Allergy/AdvReac Type Severity Reaction Status Date / Time sulfamethoxazole Allergy Intermediate itching , Verified 06/19/23 08:35 [From Bactrim] rash, welts trimethoprim [From Bactrim] Allergy Intermediate itching , Verified 06/19/23 08:35 rash, welts adhesive Allergy Unknown ITCHING Verified 06/19/23 08:35 ibuprofen AdvReac Unknown Unknown Verified 06/19/23 08:35 Consultations 06/19/23 08:39 ED Decision to Admit Stat 06/19/23 12:01 Consult Urology Routine Procedures Performed Operation Date: 06/19/23 10:30 Actual Procedures p Cystoscopy, Retrograde Pyelogram, Bilateral Stent Placement(Not Applicable) - Don Ambrosio MD Ordered Studies 06/19/23 [place] retrograde includes kub Routine 06/19/23 06:43 CT stones [CT abd pelvis wo con] Stat Hospital Course (1) Acute UTI: Urine and blood cultures negative. UTI has been ruled out. However, because of the presence of the bilateral ureteral stents, she will be discharged on oral Cipro. (2) Nephrolithiasis: Bilateral obstructing ureteral calculi. Urology consultation appreciated. Bilateral ureteral stent placement completed on June 19 (3) Hydronephrosis concurrent with and due to calculi of kidney and ureter: Right greater than left. Bilateral ureter stents were placed June 19 (4) Dyslipidemia: Stable. Continue current medical management Plan Home today, June 20, on Cipro. She states that she does not need pain medication. She will follow-up with urology on an outpatient basis for further intervention. Probably outpatient lithotripsy. Total Time Total Time Spent Total Time Spent (In Minutes): 45 minutes Discharge Plan Discharge Items Patient Disposition: Home - Self-Care Reason For Visit: FEVER Discharge Diagnosis: Bilateral ureteral calculi, bilateral hydronephrosis Activity: Resume your previous activity Non-emergency contact: Primary Care Provider and Urologist Call non-emergency contact if: you have any medication questions and your symptoms worsen Follow-up/Referrals: Kathie Unger MD [Primary Care Provider] - Diet: Regular Addtl Attending Provider Instructions: Take Cipro 500 mg twice a day as directed. Follow-up with urology as directed for further treatment Addtl Wallboard Worker Provider Instructions: The surgery you had was ureteral stent placement. If you are having discomfort from your stent, it is ok to take tylenol alternating with ibuprofen. You can also take AZO, which can be purchased [id number] at the drugstore. Be aware this turns your urine a bright orange color. If you are prescribed a stronger medication you can take this according to instructions on the label. The stent will need to be removed. If you still have a kidney stone in place, we will make sure this is treated prior to stent removal. As long as the stent is in place, you may see some blood in the urine. You may have pain in your side when you urinate. The urology office will call you within a couple days of discharge to arrange an outpatient office visit. If you have not heard from us after 2 days, you can call the office at [phone]: Pending Studies at Discharge: No Stand-Alone Forms: My [employer], Smoking Cessation Medications and DC Order Prescriptions: New ciprofloxacin HCl [Cipro] 500 mg tablet 500 mg PO BID Qty: 20 0RF Continued nitrofurantoin monohyd/m-cryst [Macrobid] 100 mg capsule 100 mg PO Q12H 4 Days Qty: 8 0RF Rx Instructions: Start Date 06/17/23 - End Date 06/27/23. Must administer with a meal/food, total of 7 days of treatment. citalopram [Celexa] 10 mg tablet 10 mg PO QAM Qty: 90 3RF cholecalciferol (vitamin D3) [Vitamin D3] 2,000 unit Capsule 2,000 unit PO QAM cyanocobalamin (vitamin B-12) [Vitamin B-12] 1,000 mcg Tablet 1,000 mcg PO QAM calcium citrate 250 mg calcium Tablet 250 mg PO BID cyclosporine [Restasis] 0.05 % dropperette 1 drp ophthalmic (eye) BID Wegovy 0.25 mg/0.5 mL pen injector 0.25 mg SUBCUT WK potassium citrate 10 mEq (1,080 mg) tablet extended release 10 meq PO QAM Premarin 0.625 mg/gram Cream 0.625 mg VAGINAL 2XWK multivitamin Tablet 1 tab PO BID Discharge Orders: Discharge Order (Routine); Ordered 06/20/23 Ordered By: Sonu Nunez Admission Data Admit Date/Time: 06/19/23 09:12 Attending Provider: Sonu Nunez Admit Provider: Sonu Nunez Primary Care Provider: Kathie Unger Other Providers: Sonu Nunez ; Don Ambrosio Coding Level of Care Code 85724 INP/OBS DISCH >30 MIN Diagnoses Acute UTI N39.0 Nephrolithiasis N20.0 Hydronephrosis concurrent with and due to calculi of kidney and ureter N13.2 Dyslipidemia E78.5
== END 2023-06-20 13:50 | disposition home or self-care (01) ==
LOC: ED 05:57 → 3W 09:12 → INTOOBSV 09:12 → 3W 15:34